=== PATIENT | male | born 1950 | race Caucasian/White ===

== ENCOUNTER → 2016-05-11 | Outpatient (CLI) | payer MEDICARE, OTHER ==
[~2016-05-11] MED LIST: /PANT40TA OR; /SUCR1TA OR; ASPI81TA83 OR; CARV3.12 PO; CRAN250T PO; FERR225T PO; FLOM5CAP PO; LISI20TA5 OR; MULTCAP PO; NATU400T PO; OCUVCAP2 PO; OMEG500C PO; OSTETAB4 PO; PANT40TA2 PO; PERCOCET PO; PRAV40TA OR; REDCAP3 PO; TRAN2TAB4 PO; VITA500C24 PO; XARE20TA PO; ZANT150T OR
[2016-05-11 20:16] LABS: BASO % 0.6 % (0.0-1.0); EOS # 0.2 K/mm3 (0.0-0.50); EOS % 2.9 % (0.0-3.0); LARGE UNSTAINED CELL # 0.1 K/mm3 (0.0-0.4); LARGE UNSTAINED CELL % 1.5 % (0.0-4.0); LYMPH # 1.6 K/mm3 (1.5-4.5); LYMPH % 25.4 % (24.0-44.0); MEAN CORPUSCULAR HEMOGLOBIN 31.4 pg (27.0-33.0); MEAN CORPUSCULAR HGB CONC 33.1 g/dl (32.0-36.5); MEAN CORPUSCULAR VOLUME 94.8 fl (80.0-96.0); MONO # 0.3 K/mm3 (0.0-0.8); MONO % 5.4 % (0.0-5.0); NEUTROPHILS % 64.2 % (36.0-66.0); PLATELET COUNT, AUTOMATED 277 k/mm3 (150-450); RED CELL DISTRIBUTION WIDTH 12.9 % (11.5-14.5); WHITE BLOOD COUNT 6.2 K/mm3 (4.0-10.0)
[2016-05-11 20:32] LABS: ANION GAP 7 MEQ/L (8-16); BLOOD UREA NITROGEN 18 MG/DL (7-18); CALCIUM LEVEL 8.9 MG/DL (8.8-10.2); CARBON DIOXIDE LEVEL 29 MEQ/L (21-32); CHLORIDE LEVEL 105 MEQ/L (98-107); CREATININE FOR GFR 0.86 MG/DL (0.70-1.30); GLOMERULAR FILTRATION RATE > 60.0 (>49); GLUCOSE, FASTING 106 MG/DL (80-110); SODIUM LEVEL 141 MEQ/L (136-145)
== END ==
LOC: M WUC 16:11
PROVIDERS: ATTEND Physician Assistant Medical
DX: N39.0 Urinary tract infection, site not specified (principal); N40.1 Benign prostatic hyperplasia with lower urinary tract symptoms
CPT/HCPCS: 36415; 80048; 81001; 81002; 84153; 85025; 87086; G0463

== ENCOUNTER → 2016-06-27 | Outpatient (REF) | payer MEDICARE, OTHER ==
[2016-06-27 11:05] LABS: BASO % 0.6 % (0.0-1.0); EOS # 0.2 K/mm3 (0.0-0.50); EOS % 2.7 % (0.0-3.0); LARGE UNSTAINED CELL # 0.1 K/mm3 (0.0-0.4); LARGE UNSTAINED CELL % 1.1 % (0.0-4.0); LYMPH # 1.4 K/mm3 (1.5-4.5); LYMPH % 22.1 % (24.0-44.0); MEAN CORPUSCULAR HEMOGLOBIN 31.9 pg (27.0-33.0); MEAN CORPUSCULAR HGB CONC 34.1 g/dl (32.0-36.5); MEAN CORPUSCULAR VOLUME 93.5 fl (80.0-96.0); MONO # 0.4 K/mm3 (0.0-0.8); MONO % 6.3 % (0.0-5.0); NEUTROPHILS # 3.9 K/mm3 (1.8-7.7); PLATELET COUNT, AUTOMATED 259 k/mm3 (150-450); RED CELL DISTRIBUTION WIDTH 12.8 % (11.5-14.5); WHITE BLOOD COUNT 5.8 K/mm3 (4.0-10.0)
[2016-06-27 11:21] LABS: ALBUMIN/GLOBULIN RATIO 1.38 (1.00-1.93); ALKALINE PHOSPHATASE 93 U/L (45-117); ALT/SGPT 27 U/L (12-78); ANION GAP 7 MEQ/L (8-16); AST/SGOT 20 U/L (15-37); BILIRUBIN,TOTAL 0.5 MG/DL (0.2-1.0); BLOOD UREA NITROGEN 11 MG/DL (7-18); CALCIUM LEVEL 9.4 MG/DL (8.8-10.2); CARBON DIOXIDE LEVEL 30 MEQ/L (21-32); CHLORIDE LEVEL 103 MEQ/L (98-107); CHOLESTEROL LEVEL 232 MG/DL (<200); CREATININE FOR GFR 0.87 MG/DL (0.70-1.30); GLOMERULAR FILTRATION RATE > 60.0 (>49); GLUCOSE, FASTING 108 MG/DL (80-110); POTASSIUM SERUM 4.4 MEQ/L (3.5-5.1); SODIUM LEVEL 140 MEQ/L (136-145); TOTAL PROTEIN 6.9 GM/DL (6.4-8.2); TRIGLYCERIDES LEVEL 232 MG/DL (<150)
== END ==
LOC: M LABDRAW1 10:43
PROVIDERS: ATTEND Family Medicine
DX: M17.0 Bilateral primary osteoarthritis of knee (principal); E78.5 Hyperlipidemia, unspecified; R73.01 Impaired fasting glucose; E55.9 Vitamin D deficiency, unspecified

== ENCOUNTER → 2016-10-11 | Outpatient (REF) | payer MEDICARE, OTHER ==
[~2016-10-11] MED LIST changes: -TRAN2TAB4 PO; +TRAN2TAB8 PO
[2016-10-11 11:59] LABS: ALBUMIN 4.1 GM/DL (3.2-5.2); ALBUMIN/GLOBULIN RATIO 1.37 (1.00-1.93); ALKALINE PHOSPHATASE 98 U/L (45-117); ALT/SGPT 30 U/L (12-78); ANION GAP 9 MEQ/L (8-16); AST/SGOT 17 U/L (15-37); BILIRUBIN,TOTAL 0.5 MG/DL (0.2-1.0); BLOOD UREA NITROGEN 13 MG/DL (7-18); CALCIUM LEVEL 9.1 MG/DL (8.8-10.2); CARBON DIOXIDE LEVEL 29 MEQ/L (21-32); CHLORIDE LEVEL 105 MEQ/L (98-107); CHOLESTEROL LEVEL 200 MG/DL (<200); CREATININE FOR GFR 0.84 MG/DL (0.70-1.30); GLOMERULAR FILTRATION RATE > 60.0 (>49); GLUCOSE, FASTING 96 MG/DL (80-110); POTASSIUM SERUM 4.1 MEQ/L (3.5-5.1); SODIUM LEVEL 143 MEQ/L (136-145); TOTAL PROTEIN 7.1 GM/DL (6.4-8.2); TRIGLYCERIDES LEVEL 153 MG/DL (<150)
== END ==
LOC: M LABDRAW1 11:00
PROVIDERS: ATTEND Family Medicine
DX: E78.5 Hyperlipidemia, unspecified (principal); Z79.899 Other long term (current) drug therapy

== ENCOUNTER → 2016-11-27 | Outpatient (CLI) | payer MEDICARE, BC, OTHER ==
--- NOTE | 2016-11-27 12:13 | REP ---
MRI RIGHT HIP: TECHNIQUE: Coronal T1, STIR through the pelvis, T2 fat sat, right hip all three planes, axial oblique proton density fat sat right hip. There is no evidence of significant marrow edema. There is no occult fracture. There is no evidence of avascular necrosis. Incidental note is made of a metallic prosthesis at the left hip. There do appear to be tears of the anterior and posterior right hip labrum as well as the superior labrum. No paralabral cyst is seen. There is mild chondromalacia with some mild subchondral marrow edema in the superior acetabulum. Surrounding soft tissue structures appear unremarkable. Visualized intrapelvic structures are unremarkable. IMPRESSION: There appear to be tears of the anterior, posterior, and superior labrum. 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 Mild subchondral marrow edema in the superolateral acetabulum. Signed by Bassam Gonzalez MD 11/27/2016 04:01 P
== END ==
LOC: M PLARAD 09:41
PROVIDERS: ATTEND Orthopaedic Surgery
DX: M94.251 Chondromalacia, right hip (principal); M25.451 Effusion, right hip

== ENCOUNTER → 2017-01-09 | Outpatient (REF) | payer MEDICARE, BC, OTHER ==
[~2017-01-09] MED LIST changes: +DIGO0.259 PO; +ELIQ5TAB; +GABA-283 PO; +MAGN250T6 PO; +PRAV40TA2 PO
== END ==
LOC: M SFHCPLAZ 12:38
PROVIDERS: ATTEND Physician Assistant Medical
DX: C44.329 Squamous cell carcinoma of skin of other parts of face (principal)
CPT/HCPCS: 11100; 88305; G0463

== ENCOUNTER → 2017-01-11 | Outpatient (CLI) | payer MEDICARE, BC, OTHER | LOC: M PT 08:25 | PROVIDERS: ATTEND Orthopaedic Surgery | DX: Z01.818 Encounter for other preprocedural examination (principal); M25.551 Pain in right hip | CPT/HCPCS: 97161; G8978; G8979; G8980 ==

== ENCOUNTER 2017-02-16 21:51 | Emergency (ER) | payer MEDICARE, BC, OTHER ==
[~2017-02-16] VITALS: Ht 177.8 cm; Wt 109.1 kg
[~2017-02-16 21:51] MED LIST changes: -DIGO0.259 PO; -ELIQ5TAB; -GABA-283 PO; -MAGN250T6 PO; -PRAV40TA2 PO
[2017-02-16] MEDS ORDERED: MAGN250T6 PO (22:04)
[2017-02-16] MEDS ORDERED: ELIQ5TAB (22:04)
[2017-02-16] MEDS ORDERED: GABA-283 PO (22:04)
[2017-02-16] MEDS ORDERED: PRAV40TA2 PO (22:04)
[2017-02-16] MEDS ORDERED: METOPROLOL 5 MG/5 ML VIAL IV STA ×3 (22:08→22:51)
[2017-02-16 22:23] LABS: BASO # 0.1 10^3/uL (0.0-0.2); BASO % 0.9 % (0.0-1.0); EOS # 0.4 10^3/uL (0.0-0.50); EOS % 3.9 % (0.0-3.0); IMMATURE GRANULOCYTE % 0.4 % (0-0); LYMPH % 21.6 % (24.0-44.0); MEAN CORPUSCULAR VOLUME 91.2 fl (80.0-96.0); MONO # 0.7 10^3/uL (0.0-0.8); MONO % 7.8 % (0.0-5.0); NEUTROPHILS # 5.9 10^3/uL (1.8-7.7); NEUTROPHILS % 65.4 % (36.0-66.0); PLATELET COUNT, AUTOMATED 298 10^3/uL (150-450); RED CELL DISTRIBUTION WIDTH 12.8 % (11.5-14.5); WHITE BLOOD COUNT 9.1 10^3/uL (4.0-10.0)
[2017-02-16 22:38] LABS: ANION GAP 9 MEQ/L (8-16); BLOOD UREA NITROGEN 17 MG/DL (7-18); CALCIUM LEVEL 9.2 MG/DL (8.8-10.2); CARBON DIOXIDE LEVEL 28 MEQ/L (21-32); CHLORIDE LEVEL 104 MEQ/L (98-107); CREATININE FOR GFR 0.89 MG/DL (0.70-1.30); GLOMERULAR FILTRATION RATE > 60.0 (>49); GLUCOSE, FASTING 162 MG/DL (80-110); POTASSIUM SERUM 3.7 MEQ/L (3.5-5.1); SODIUM LEVEL 141 MEQ/L (136-145); T UPTAKE 29 % (33-40); THYROXINE (T4) 7.7 UG/DL (4.5-12.0)
[2017-02-16 22:55] VITALS: BP 131/94
[2017-02-16] MEDS ORDERED: DIGOXIN INJ 0.5 MG/2 ML AMP (J1160) IV STA (23:25)
[2017-02-16 23:46] VITALS: BP 143/75
[2017-02-16] MEDS ORDERED: DIGO0.259 PO (23:56)
--- NOTE | 2017-02-17 07:24 | ECGEPIP ---
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
--- NOTE | 2017-02-17 07:26 | ECGEPIP ---
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
== END 2017-02-17 00:04 | disposition home or self-care (01) ==
LOC: M ED 21:51
DX: I48.91 Unspecified atrial fibrillation (principal); I10 Essential (primary) hypertension; K21.9 Gastro-esophageal reflux disease without esophagitis; N40.0 Benign prostatic hyperplasia without lower urinary tract symptoms; E78.5 Hyperlipidemia, unspecified; M54.5 Low back pain; Z87.442 Personal history of urinary calculi; K26.9 Duodenal ulcer, unspecified as acute or chronic, without hemorrhage or perforation; Z79.899 Other long term (current) drug therapy; Z79.01 Long term (current) use of anticoagulants; Z88.1 Allergy status to other antibiotic agents; Z88.8 Allergy status to other drugs, medicaments and biological substances
CPT/HCPCS: 80048; 82550; 82553; 84436; 84443; 84479; 84484; 85025; 93005; 96374; 96375; 96376; 99284; J1160

== ENCOUNTER → 2017-05-10 | Outpatient (REF) | payer MEDICARE, BC, OTHER | LOC: M LAB REF 18:22 | DX: L57.8 Other skin changes due to chronic exposure to nonionizing radiation (principal) | CPT/HCPCS: 88305 ==

== ENCOUNTER → 2017-05-17 | Outpatient (CLI) | payer MEDICARE, BC, OTHER | LOC: M SLEEP 19:52 | DX: G47.33 Obstructive sleep apnea (adult) (pediatric) (principal) | CPT/HCPCS: 95811 ==

== ENCOUNTER → 2017-07-06 | Outpatient (REF) | payer MEDICARE, BC, OTHER ==
[2017-07-06 11:27] LABS: PSA SCREENING 0.67 NG/ML (< 4.0)
== END ==
LOC: M LABDRAW1 07:44
DX: N40.1 Benign prostatic hyperplasia with lower urinary tract symptoms (principal)

== ENCOUNTER → 2017-07-06 | Outpatient (REF) | payer MEDICARE, BC, OTHER ==
[2017-07-06 10:47] LABS: APPEARANCE, URINE CLEAR (CLEAR); BACTERIA, URINE AUTO NEGATIVE (NEGATIVE); BILIRUBIN, URINE AUTO NEGATIVE (NEGATIVE); BLOOD, URINE BLOOD NEGATIVE (NEGATIVE); COLOR, URINE YELLOW (YELLOW); GLUCOSE, URINE (UA) AUTO NEGATIVE (NEGATIVE); KETONE, URINE AUTO NEGATIVE (NEGATIVE); LEUKOCYTE ESTERASE, URINE AUTO NEGATIVE (NEGATIVE); MUCUS, URINE SMALL (NEGATIVE); NITRITE, URINE AUTO NEGATIVE (NEGATIVE); PROTEIN, URINE AUTO NEGATIVE (NEGATIVE); RBC, URINE AUTO 0 /HPF (0-3); SPECIFIC GRAVITY URINE AUTO 1.024 (1.002-1.035); SQUAMOUS EPITHELIAL CELL UR AU 0 /HPF (0-6); UROBILINOGEN, URINE AUTO 0.2 mg/dL (0.0-2.0); WBC, URINE AUTO 0 /HPF (0-3)
[2017-07-06 10:59] LABS: ESTIMATED AVERAGE GLUCOSE 137 MG/DL (60-110); HEMOGLOBIN A1c 6.4 %
[2017-07-06 11:24] LABS: C REACTIVE PROTEIN QUANTITATIV < 0.30 MG/DL (0.00-0.30); CHOLESTEROL LEVEL 177 MG/DL (<200); CHOLESTEROL RISK RATIO 3.847 (<5); CPK CREATINE PHOSPHOKINASE 131 U/L (39-308); HDL CHOLESTEROL 46 MG/DL (>40); NON-HDL-C 131 MG/DL; PSA SCREENING 0.65 NG/ML (< 4.0); TRIGLYCERIDES LEVEL 225 MG/DL (<150)
[2017-07-06 11:35] LABS: MALB URINE SIEMENS 41.9 MG/L; MAU/CREAT RATIO 20.7 MCG/MG (0.0-30.0)
[2017-07-07 14:19] LABS: INSULIN LEVEL 24.1 uIU/mL (2.6-24.9)
== END ==
LOC: M LABDRAW1 07:41
DX: E78.5 Hyperlipidemia, unspecified (principal); R73.01 Impaired fasting glucose; N40.1 Benign prostatic hyperplasia with lower urinary tract symptoms
CPT/HCPCS: 82550

== ENCOUNTER → 2017-09-21 | Outpatient (CLI) | payer MEDICARE, BC, OTHER | LOC: M PLARAD 07:59 | DX: M25.572 Pain in left ankle and joints of left foot (principal) ==

== ENCOUNTER → 2017-09-21 | Outpatient (CLI) | payer MEDICARE, BC, OTHER | LOC: M PLARAD 08:05 | DX: M47.27 Other spondylosis with radiculopathy, lumbosacral region (principal); M46.1 Sacroiliitis, not elsewhere classified; M51.26 Other intervertebral disc displacement, lumbar region; M51.37 Other intervertebral disc degeneration, lumbosacral region; G57.00 Lesion of sciatic nerve, unspecified lower limb; M25.572 Pain in left ankle and joints of left foot | CPT/HCPCS: 72148 ==

== ENCOUNTER 2017-11-29 06:16 | Day surgery (SDC) | payer MEDICARE, BC, OTHER ==
[2017-11-29] MEDS: CEFUROXIME 1MG/0.1ML INTRACAMERAL INJ As Ordered (06:56)
[2017-11-29] MEDS: TROPICAMIDE 1% OPHTH SOLN 2ML OS (07:05)
[2017-11-29] MEDS: PROPARACAINE 0.5% OPHTH SOL 15ML OS (07:05)
[2017-11-29] MEDS: PHENYLEPHRINE 2.5% OPHTH SOL 2ML OS (07:05)
[2017-11-29] MEDS: OFLOXACIN 0.3 % (OCUFLOX) OPTH SOL 5ML OS (07:08)
[2017-11-29] MEDS ORDERED: fentaNYL 100 MCG/2 ML INJECTION (J3010) As Ordered (08:42)
[2017-11-29] MEDS ORDERED: MIDAZOLAM INJ 2 MG/2 ML VIAL (J2250) As Ordered (08:42)
[2017-11-29] MEDS: POVIDONE-IODINE 5% OPHTH PREP SOL 30ML As Ordered (08:43)
[2017-11-29] MEDS: DUOVISC (0.50ML VISCOAT/0.55ML PROVISC) OPHTH KIT As Ordered (09:06)
[2017-11-29] MEDS: BALANCED SALT IRRIGATION SOLUTION 500ML BAG (FOR OR EYE MACHINE) As Ordered (09:06)
[2017-11-29] MEDS: LIDOCAINE 0.75%/EPINEPHRINE 0.025% IN BSS 1ML SYR INTRACAMERAL (OR ONLY) As Ordered (09:06)
== END 2017-11-29 09:37 | disposition home or self-care (01) ==
LOC: M SDC 06:16
DX: H25.12 Age-related nuclear cataract, left eye (principal); E78.00 Pure hypercholesterolemia, unspecified; I48.91 Unspecified atrial fibrillation; I10 Essential (primary) hypertension; G47.30 Sleep apnea, unspecified; Z79.899 Other long term (current) drug therapy
CPT/HCPCS: 66984

== ENCOUNTER → 2017-12-18 | Outpatient (REF) | payer MEDICARE, OTHER ==
[2017-12-18 11:56] LABS: BASO # 0.1 10^3/uL (0.0-0.2); BASO % 0.9 % (0.0-1.0); EOS # 0.2 10^3/uL (0.0-0.50); EOS % 3.8 % (0.0-3.0); HEMATOCRIT 42.9 % (42.0-52.0); HEMOGLOBIN 14.4 g/dl (13.5-17.5); IMMATURE GRANULOCYTE % 0.5 % (0-3.0); LYMPH # 1.6 10^3/uL (1.5-4.5); LYMPH % 29.4 % (24.0-44.0); MEAN CORPUSCULAR HEMOGLOBIN 31.3 pg (27.0-33.0); MEAN CORPUSCULAR HGB CONC 33.6 g/dl (32.0-36.5); MEAN CORPUSCULAR VOLUME 93.3 fl (80.0-96.0); MONO # 0.5 10^3/uL (0.0-0.8); MONO % 8.2 % (0.0-5.0); NEUTROPHILS # 3.1 10^3/uL (1.8-7.7); NEUTROPHILS % 57.2 % (36.0-66.0); PLATELET COUNT, AUTOMATED 231 10^3/uL (150-450); RED CELL DISTRIBUTION WIDTH 13.2 % (11.5-14.5); RETIC HEMOGLOBIN EQUIVALENT 36.4 pg (24-36); RETICULOCYTE # 58.9 10^9/L (17-77); RETICULOCYTE % 1.3 % (0.5-1.5); WHITE BLOOD COUNT 5.5 10^3/uL (4.0-10.0)
[2017-12-18 12:39] LABS: ALBUMIN 4.1 GM/DL (3.2-5.2); ALKALINE PHOSPHATASE 72 U/L (45-117); ALT/SGPT 25 U/L (12-78); ANION GAP 7 MEQ/L (8-16); AST/SGOT 15 U/L (7-37); BILIRUBIN,TOTAL 0.5 MG/DL (0.2-1.0); BLOOD UREA NITROGEN 14 MG/DL (7-18); CALCIUM LEVEL 8.9 MG/DL (8.8-10.2); CARBON DIOXIDE LEVEL 29 MEQ/L (21-32); CHLORIDE LEVEL 106 MEQ/L (98-107); CREATININE FOR GFR 0.75 MG/DL (0.70-1.30); FERRITIN 198 NG/ML (26-388); GLOMERULAR FILTRATION RATE > 60.0 (>49); GLUCOSE, FASTING 104 MG/DL (70-100); MAGNESIUM LEVEL 2.2 MG/DL (1.8-2.4); SODIUM LEVEL 142 MEQ/L (136-145); TOTAL PROTEIN 6.6 GM/DL (6.4-8.2)
[2017-12-18 16:15] LABS: ALBUMIN/GLOBULIN RATIO 1.64 (1.00-1.93)
[2017-12-19 14:18] LABS: INSULIN LEVEL 19.5 uIU/mL (2.6-24.9)
== END ==
LOC: M LABDRAW1 10:59
DX: I10 Essential (primary) hypertension (principal); R73.01 Impaired fasting glucose; Z87.19 Personal history of other diseases of the digestive system
CPT/HCPCS: 83525

== ENCOUNTER 2018-02-07 08:29 | Day surgery (SDC) | payer MEDICARE, BC, OTHER ==
[2018-02-07] MEDS: PHENYLEPHRINE 2.5% OPHTH SOL 2ML OD (09:04)
[2018-02-07] MEDS: TROPICAMIDE 1% OPHTH SOLN 2ML OD (09:04)
[2018-02-07] MEDS: OFLOXACIN 0.3 % (OCUFLOX) OPTH SOL 5ML OD (09:04)
[2018-02-07] MEDS: PROPARACAINE 0.5% OPHTH SOL 15ML OD (09:04)
[2018-02-07] MEDS ORDERED: fentaNYL 100 MCG/2 ML INJECTION (J3010) As Ordered (09:46)
[2018-02-07] MEDS ORDERED: MIDAZOLAM INJ 2 MG/2 ML VIAL (J2250) As Ordered (09:46)
[2018-02-07] MEDS: POVIDONE-IODINE 5% OPHTH PREP SOL 30ML As Ordered (10:20)
[2018-02-07] MEDS: DUOVISC (0.50ML VISCOAT/0.55ML PROVISC) OPHTH KIT As Ordered (10:26)
[2018-02-07] MEDS: BALANCED SALT IRRIGATION SOLUTION 500ML BAG (FOR OR EYE MACHINE) As Ordered (10:26)
[2018-02-07] MEDS: CEFUROXIME 1MG/0.1ML INTRACAMERAL INJ As Ordered (10:26)
[2018-02-07] MEDS: LIDOCAINE 0.75%/EPINEPHRINE 0.025% IN BSS 1ML SYR INTRACAMERAL (OR ONLY) As Ordered (10:26)
== END 2018-02-07 11:14 | disposition home or self-care (01) ==
LOC: M SDC 08:29
DX: H25.11 Age-related nuclear cataract, right eye (principal); H52.211 Irregular astigmatism, right eye; I10 Essential (primary) hypertension; I48.91 Unspecified atrial fibrillation; E11.9 Type 2 diabetes mellitus without complications; E78.00 Pure hypercholesterolemia, unspecified; I34.9 Nonrheumatic mitral valve disorder, unspecified; M12.9 Arthropathy, unspecified; K21.9 Gastro-esophageal reflux disease without esophagitis; M48.00 Spinal stenosis, site unspecified; G47.33 Obstructive sleep apnea (adult) (pediatric); Z88.1 Allergy status to other antibiotic agents; Z88.8 Allergy status to other drugs, medicaments and biological substances; Z79.899 Other long term (current) drug therapy; Z79.01 Long term (current) use of anticoagulants; Z79.84 Long term (current) use of oral hypoglycemic drugs; Z86.73 Personal history of transient ischemic attack (TIA), and cerebral infarction without residual deficits; Z87.442 Personal history of urinary calculi; Z98.42 Cataract extraction status, left eye
CPT/HCPCS: 66984

== ENCOUNTER → 2018-02-14 | Outpatient (CLI) | payer MEDICARE, OTHER | LOC: M PAIN 09:00 | DX: M54.17 Radiculopathy, lumbosacral region (principal); M47.817 Spondylosis without myelopathy or radiculopathy, lumbosacral region; R73.01 Impaired fasting glucose; E78.5 Hyperlipidemia, unspecified; I10 Essential (primary) hypertension; E66.9 Obesity, unspecified; I48.0 Paroxysmal atrial fibrillation; G47.33 Obstructive sleep apnea (adult) (pediatric); G47.00 Insomnia, unspecified; Z85.828 Personal history of other malignant neoplasm of skin; Z87.442 Personal history of urinary calculi; Z68.36 Body mass index [BMI] 36.0-36.9, adult; Z79.01 Long term (current) use of anticoagulants; Z79.84 Long term (current) use of oral hypoglycemic drugs; Z79.899 Other long term (current) drug therapy; Z96.643 Presence of artificial hip joint, bilateral; Z98.41 Cataract extraction status, right eye; Z88.1 Allergy status to other antibiotic agents; Z88.8 Allergy status to other drugs, medicaments and biological substances | CPT/HCPCS: G0463 ==

== ENCOUNTER → 2018-03-27 | Outpatient (CLI) | payer MEDICARE, OTHER ==
[~2018-03-27] MED LIST changes: +BISO5TAB5 PO; +CURCPOW PO; +DIGO0.259 PO; +ELIQ5TAB PO; +FERR325T16 PO; +FLOM0.4C39 PO; -FLOM5CAP PO; +GABA-845 PO; +ISOVUE-M 300 61% 15ML VIAL (Q9967) As Ordered ONE; +LIDOCAINE 1% SDV INJ 30 ML VIAL As Ordered ONE; +MAGN250T6 PO; +MELA10CA PO; +METF500T4 PO; +NEUR600T PO; +OCUVTAB4 PO; -PANT40TA2 PO; +PANT40TA3 PO; +PRAV20TA2 PO; +PRAV40TA2 PO; +SONA10CA23 PO; +TRAN1TAB47 PO; +TRAN1TAB48 PO; -TRAN2TAB8 PO; +ZALE10CA; +[UNRECOGNIZED DRUG - CODE] PO; +diazePAM 5 MG TAB As Ordered ONE; +methylPREDNISolone SUSP 40 MG/ML (DEPO-medrol) VIAL (J1030) As Ordered ONE; +oxyCODONE 5MG TAB As Ordered ONE
--- NOTE | 2018-03-27 14:58 | REP ---
Partial lumbar spine series: Three views . History: Injection procedure for pain. 13 seconds of fluoroscopy time is reported. Findings: A sequence of three fluoroscopically obtained last image hold procedural spot radiographs of the lumbar spine document needle position and contrast injection associated with injection procedure. Electronically Signed by Richard Bradley MD 03/27/2018 02:50 P
--- NOTE | 2018-04-14 23:50 | ECWPNPC ---
PATIENT NAME: TRAVIS CARDENAS : 1950 GENDER: MALE VISIT DATE: 03/27/2018 DISCHARGE DATE: 03/27/18 1338 VISIT LOCKED DATE TIME: PHYSICIAN: BRITTNEY AGUILERA MD PHYSICIAN PAGER NO: [phone] RESOURCE: BRITTNEY AGUILERA MD REASON FOR APPOINTMENT 1. LESI HISTORY OF PRESENT ILLNESS HISTORY OF PRESENT ILLNESS: PAIN THE PATIENT DESCRIBES THE PAIN... FALL RISK SCREENING: SCREENING :NO FALLS IN THE PAST YEAR CURRENT MEDICATIONS TAKING VITAMIN D (CHOLECALCIFEROL) 1000 UNIT TABLET 2 TABLET ORALLY ONCE A DAY, NOTES: 07 TAKING PROTOPIC 0.1 % OINTMENT 1 APPLICATION TO AFFECTED AREA EXTERNALLY BID X 7 DAYS TO ECZEMA PLAQUES, NOTES: MONTHS AGO TAKING FLOMAX 0.4 MG CAPSULE 2 CAPSULES 30 MINUTES AFTER THE SAME MEAL EACH DAY ORALLY QHS, NOTES: 03/26/182244 TAKING MAGNESIUM 200 MG TABLET 1 TABLET WITH A MEAL ORALLY TWICE A DAY, NOTES: 729 TAKING MELATONIN 10 MG TABLET 1 TABLET AT BEDTIME NEEDED WITH FOOD ORALLY ONCE A DAY, NOTES: 03/26/182229 TAKING VOLTAREN 1 % GEL ONE APPLICATION TRANSDERMAL TWICE A DAY TO BACK AND HAMSTRINGS., NOTES: NONE RECENT TAKING GABAPENTIN 600 MG TABLET 1 CAPSULE ORALLY THREE TIMES A DAY, NOTES: 729 TAKING PRAVASTATIN SODIUM 20 MG TABLET 1 TABLET ORALLY AT BEDTIME, NOTES: 03/26/182244 TAKING PANTOPRAZOLE SODIUM 40 MG TABLET DELAYED RELEASE 1 TABLET ORALLY EVERY MORNING, NOTES: 729 TAKING APIXABAN 5 MG TABLET 1 TAB ORALLY BID, NOTES: 03/24/18 0700 TAKING MULTIVITAMINS OTC TABLET 1 TABLET ORALLY ONCE A DAY, NOTES: 729 TAKING AREDS _ CAPSULE 1 CAPLSULE ORALLY TWICE A DAY, NOTES: 729 TAKING CURCUMIN TABLET 2 CAP ORAL DAILY, NOTES: 729 TAKING BISOPROLOL FUMARATE 5 MG TABLET 1 TABLET ORALLY ONCE A DAY, NOTES: 729 TAKING AMOXICILLIN 500 MG CAPSULE 4 CAPSULE ORALLY DIRECTED, NOTES: NONE RECENT - BEFORE DENTIST APPOINTMENTS TAKING SONATA 10 MG CAPSULE 1 CAPSULE AT BEDTIME NEEDED ORALLY AT BEDTIME PRN INSOMNIA, NOTES: 03/26/182244 TAKING METFORMIN HCL ER 500 MG TABLET EXTENDED RELEASE 24 HOUR 1 TABLET WITH EVENING MEAL ORALLY AC DINNER, NOTES: 03/26/18 1900 TAKING TRANDOLAPRIL 1 MG TABLET 1 TABLET ORALLY AT BEDTIME, NOTES: 03/26/18 2245 NOT-TAKING GABAPENTIN 600 MG TABLET 1 CAPSULE ORALLY THREE TIMES A DAY, NOTES: DUPLICATE NOT-TAKING METFORMIN HCL ER 500 MG TABLET EXTENDED RELEASE 24 HOUR 1 TABLET WITH EVENING MEAL ORALLY AC DINNER, NOTES: DUPLICATE NOT-TAKING TAMSULOSIN HCL 0.4 MG CAPSULE 2 CAPSULES ORALLY AT BEDTIME, NOTES: DUPLICATE MEDICATION LIST REVIEWED AND RECONCILED WITH THE PATIENT PAST MEDICAL HISTORY IMPAIRED FASTING GLUCOSE HYPERLIPIDEMIA 2B HYPERTENSION HISTORY OF LEFT NEPHROLITHIASIS X1 STATUS POST LASER LITHOTRIPSY BY DR. FULTON OF 2009-10/2010 24 URINE ONLY WITH MILDY ELEVATED OXALATE OBESITY LELO. 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 WANDA'S ATRIAL FLUTTER-S/P R ATRIAL ABLATION 10/2012-DR. PEREZ// PATRICK BLUM MD R UPPER BACK BCC-EXCISED 10/2015-[facility]AN FACIAL AKS MILD DILATED AORTIC ROOT, NORMAL MVR S MS/MR BY 04/2016 TTE ANTECOL ATRIAL FIBRILLATION, PAROXYSMAL-S/P CARDIOVESION 04/02/16 [facility] AND 02/16/17 LOADED C DIGOXIN IV/PO R ORTHODOX 4 MM SCC IN-SITU EXCISED 05/2017-[facility]AN ALLERGIES LEVAQUIN: TENDONS TIGHTEN: ALLERGY MOBIC: HIVES: ALLERGY CEPHALOSPORINS: SEVERE: ALLERGY CLINDAMYCIN HCL: PERFORATED INTESTINES: ALLERGY FLAGYL: ? DUODENAL ULCER: SIDE EFFECTS CECLOR: HIVES: SIDE EFFECTS SURGICAL HISTORY COLONOSCOPY-NORMAL APRIL 2003 L THR-FISH 01/23/2014 UMBILICAL HERNIA REPAIR-[facility] DR. PURCELL 04/28/15 RTH-DR. AHMADI-MENDOZA ORTHO 03/12/17 HEART LOOP [id number]. ED PEREZ 06/12/17 LEFT CATARACT -[facility] -[facility] 11/29/17 APPENDECTOMY 05/1958 LASER EYE SURGERY 03/1994 LEFT WRIST SURGERY 02/2004 LEFT KIDNEY LITHTRIPSY 12/2009 NEGRITO 04/2012 EGD X3 05/2011 MITRAL VALAVE REPAIR AND CYRO ABLATION 06/2012 RIGHT HIP REPLACEMET 03/2017 RIGHT CATARACT 02/2018 FAMILY HISTORY FATHER: , DIAGNOSED WITH HEART DISEASE MOTHER: , DIAGNOSED WITH STROKE, OTHER SIBLINGS: ALIVE 1 BROTHER(S) - HEALTHY. 1 SON(S) - HEALTHY. MOTHER - DEMENTIA, COPDFATHER AND BROTHER-OLDER- DX ESSENTIAL TREMORS. SOCIAL HISTORY GENERAL: TOBACCO USE ARE YOU A:NONSMOKER ARE YOU A:FORMER SMOKER HOW LONG HAS IT BEEN SINCE YOU LAST SMOKED?> 10 YEARS BMI CARE GOAL FOLLOW-UP ABOVE NORMAL BMI FOLLOW-UPGIVING ENCOURAGEMENT TO EXERCISE ALCOHOL SCREENING DID YOU HAVE A DRINK CONTAINING ALCOHOL IN THE PAST YEAR?YES HOW OFTEN DID YOU HAVE SIX OR MORE DRINKS ON ONE OCCASION IN THE PAST YEAR?NEVER (0 POINTS) HOW MANY DRINKS DID YOU HAVE ON A TYPICAL DAY WHEN YOU WERE DRINKING IN THE PAST YEAR?3 OR 4 (1 POINT) HOW OFTEN DID YOU HAVE A DRINK CONTAINING ALCOHOL IN THE PAST YEAR?TWO TO THREE TIMES PER WEEK (3 POINTS) POINTS4 INTERPRETATIONPOSITIVE RECREATIONAL DRUG USE DRUG USE?NO CAFFEINE 2-5/DAY. SEXUAL HX HAD SEX IN THE LAST 12 MONTHS (VAGINAL, ORAL, OR ANAL)?YES WITHWOMEN ONLY USE PROTECTION?NO HAVE YOU EVER HAD AN STD?NO HIV / HEP-C SCREENING HIV TEST OFFERED TO PATIENT:YES DATE OFFERED:06/20/2016 TEST ACCEPTED:NO HEP-C TEST OFFERED TO PATIENT:YES DATE OFFERED:06/20/2016 REASON:PATIENT DECLINED TEST ACCEPTED:NO REASON:PATIENT DECLINED SCIENTOLOGY SCIENTOLOGY NO MORMONISM BELIEFS THAT WOULD IMPACT HEALTH CARE. LANGUAGE LANGUAGES SPOKEN:MALAY LEARNING BARRIERS / SPECIAL NEEDS CHANGE FROM LAST VISIT?NO BARRIERS TO LEARNING?NO HEARING IMPAIRED?NO VISION IMPAIRED?NO COGNITIVELY IMPAIRED?NO READINESS TO LEARN?YES LEARNING PREFERENCES?NO LEARNING CAPABILITIES PRESENT?YES EMOTIONAL BARRIERS?NO DOMESTIC VIOLENCE DO YOU FEEL SAFE IN YOUR ENVIRONMENT?YES OCCUPATION: RETIRED. DIET: REGULAR. EXERCISE: NO REGULAR EXERCISE. MARITAL STATUS: . PAIN CLINIC PFS, CLERGY, PUBLIC HEALTH REFERRALS HAS THE PATIENT BEEN EDUCATED REGARDING HIS/HER PLAN OF CARE?YES HAS THE PATIENT BEEN EDUCATED REGARDING PAIN, THE RISK FOR PAIN, THE IMPORTANCE OF EFFECTIVE PAIN MANAGEMENT, AND THE PAIN ASSESSMENT PROCESS?YES ADVANCE DIRECTIVE ADVANCE DIRECTIVE DISCUSSED WITH PATIENT:YES HCP - ERICK CARDENAS () REVIEWED WITH PATIENT 02/14/18 0938REVIEWED WITH PATIENT 03/27 18 1202 JS. HOSPITALIZATION/MAJOR DIAGNOSTIC PROCEDURE RESEARCH-RELATED 01/2018 SURGERY RELATED REVIEW OF SYSTEMS REVIEWED BY: PROVIDER: . CONSTITUTIONAL: ANY CHANGE IN YOUR MEDICAL CONDITION? NO . CHILLS NO . FEVER NO . INFECTION: DO YOU HAVE NEW INFECTIONS? NO . DO YOU HAVE HISTORY OF MRSA? NO . MUSCULOSKELETAL: ANY NEW PATTERNS OF PAIN OR NUMBNESS? NO . GASTROENTEROLOGY: ANY NEW CHANGE IN BOWEL CONTROL? NO . GENITOURINARY: ANY NEW CHANGE IN BLADDER CONTROL? NO . IS THERE A CHANCE YOU COULD BE ? NO . HEMATOLOGY/LYMPH: DO YOU TAKE ANY BLOOD THINNERS? (FOR EXAMPLE- COUMADIN, PLAVIX, AGGRENOX, PLATEL, PRADAXA, OR XARELTO) YES, ELIQUIS . WHEN WAS YOUR LAST DOSE? DATE: 03/24/18 TIME: 0700 . NEUROLOGY: HAVE YOU FALLEN IN THE PAST 6 MONTHS? NO . ANY NEW EXTREMITY NUMBNESS OR WEAKNESS? NO . CARDIOLOGY: DO YOU HAVE A PACEMAKER OR DEFIBRILLATOR? NO . RESPIRATORY: HAVE YOU BEEN SICK IN THE PAST WEEK? NO . FEVER NO . FLU LIKE SYMPTOMS? NO . COUGH NO . INTEGUMENTARY: DO YOU HAVE ANY RASHES OR OPEN SORES? NO . ALLERGIC/IMMUNO: ARE YOU ALLERGIC TO SHELLFISH OR IV DYE? NO . ANY NEW ALLERGIES? NO . PSYCHIATRIC: DO YOU HAVE THOUGHTS OF HURTING YOURSELF OR SOMEONE ELSE? NO . ARE YOU ABUSED, NEGLECTED, OR IN AN UNSAFE ENVIRONMENT? NO . ENDOCRINOLOGY: ARE YOU DIABETIC? NO . OTHER: DO YOU NEED ANY PRESCRIPTIONS? NO . IF YES, PLEASE LIST: ____ . ANY NEW PROBLEMS WITH YOUR MEDICATIONS? NO . WHEN DID YOU LAST EAT? ____03/26/18 1900 . WHEN DID YOU LAST DRINK? ____03/27/18 0730 . WHAT DID YOU LAST DRINK? ____WATER . NAME OF PERSON DRIVING YOU HOME? ____ARNALDO CARDENAS . DO YOU HAVE ANY OTHER QUESTIONS OR CONCERNS NO . VITAL SIGNS WT 249.8 LBS, HT 70 IN, BMI 35.84 INDEX, BP 124/77 MM HG, HR 57 /MIN, RR 18 /MIN, TEMP 97.1 F, OXYGEN SAT % 98%, SAFE IN ENV? (Y/N) YES, NA INITIALS AW 1129, REVIEWED BY: JS. ASSESSMENTS INTERVERTEBRAL DISC DISORDER WITH RADICULOPATHY OF LUMBAR REGION - M51.16 (PRIMARY) PROCEDURES PRE PROCEDURE DIAGNOSIS LUMBAR DISC DISORDER WITH RADICULOPATHY POST PROCEDURE DIAGNOSIS LUMBAR DISC DISORDER WITH RADICULOPATHY PROCEDURE LUMBAR EPIDURAL STEROID INJECTION UNDER FLUOROSCOPIC GUIDANCE SURGEON DR. BRITTNEY AGUILERA COMIC BOOK ARTIST NONE ANESTHESIA LOCAL PRE PROCEDURE NOTE THE PATIENT HAS A HISTORY OF CHRONIC LOW BACK PAIN. I EVALUATE THE PATIENT AND REVIEWED THE CHART. I WENT OVER THE RISKS, ALTERNATIVES, AND BENEFITS ASSOCIATED WITH THIS PROCEDURE. THE PATIENT WOULD LIKE TO PROCEED AND GIVE CONSENT TO PERFORMED THE PROCEDURE. THE PATIENT DENIES UNEXPLAINABLE WEIGHT LOSS, FEVER, CHILLS, OR NEW CHANGES IN URINARY OR BOWEL CONTROL. DESCRIPTION OF PROCEDURE THE PATIENT WAS BROUGHT TO THE PROCEDURE ROOM AND PLACED IN THE PRONE POSITION. THE LUMBOSACRAL AREA WAS CLEANED WITH BETADINE SOLUTION AND DRAPED ASEPTICALLY. THE PROCEDURE WAS DONE UNDER STERILE CONDITIONS. I CHECKED LATERALITY AND THE LEVEL WHERE THE PROCEDURE WAS GOING TO BE PERFORMED WITH THE PATIENT AND THE SUPPORTING STAFF AT THE MOMENT OF THE TIME OUT IN THE PROCEDURE ROOM. UNDER FLUOROSCOPIC GUIDANCE, THE TARGET POINT WAS SELECTED AT THE INTERLAMINAR LEVEL OF L4-L5. LIDOCAINE WAS USED TO NUMB THE SKIN AND THE SUBCUTANEOUS TISSUE BELOW IT. EPIDURAL TUOHY NEEDLE, 17-GAUGE, WAS ADVANCED UNDER FLUOROSCOPIC GUIDANCE AND FOLLOWING PATIENT FEEDBACK UNTIL THE EPIDURAL SPACE WAS REACHED, 7 CM DEEP INTO THE SKIN BY THE LOSS OF RESISTANCE TECHNIQUE. ISOVUE M DYE 30%, 0.25 ML, WAS INJECTED SHOWING ADEQUATE SPREAD OF THE DYE. THEN, A SOLUTION OF 3 ML OF NORMAL SALINE WITH DEPO-MEDROL 60 MG WAS INJECTED SLOWLY FOLLOWING PATIENT FEEDBACK. THERE WAS NO EVIDENCE OF BLOOD, PARESTHESIA OR CEREBROSPINAL FLUID DURING THE PROCEDURE. THE PATIENT WAS SENT TO THE RECOVERY ROOM. THE PATIENT WAS MOVING THE EXTREMITIES AND DOING WELL. THERE WAS NO COMPLICATION DURING THE PROCEDURE. FLUOROSCOPY TIME WAS 23 SECONDS. POST PROCEDURE NOTE THE PATIENT WILL BE SEEN IN A FOLLOW UP IN THE NEXT FEW WEEKS. INSTRUCTIONS WERE GIVEN, QUESTIONS WERE ANSWERED, AND THE PATIENT EXPRESSED UNDERSTANDING AND AGREES WITH THE PLAN. I, YSABEL PACHECO, DOCUMENTED THE ABOVE INFORMATION ACTING A SCRIBE FOR DR. AGUILERA. I HAVE REVIEWED THE ABOVE DOCUMENT, WRITTEN BY YSABEL MILLSIBMohan AND I VERIFY THAT IT IS ACCURATE. DIAGNOSTIC IMAGING [facility] FLUORO GUIDE SPINE INJECTION (PAIN)[id number] PROCEDURE CODES 6045F RADXPS IN END [id number] PXD [id number] LUMBAR/SACRAL W/ IMAGING DISPOSITION & COMMUNICATION FOLLOW UP 2 WEEKS ELECTRONICALLY SIGNED BY BRITTNEY AGUILERA MD, MD ON 04/14/2018 AT 02:21 PM EST DISCLAIMER : THIS IS A VISIT SUMMARY EXTRACTED FROM THE [employer] CHART. IT IS NOT A COPY OF THE [employer] PROGRESS NOTE. MTDD
== END ==
LOC: M PAIN 11:30
PROVIDERS: ATTEND Anesthesiology
DX: M51.16 Intervertebral disc disorders with radiculopathy, lumbar region (principal); R73.01 Impaired fasting glucose; E78.5 Hyperlipidemia, unspecified; I10 Essential (primary) hypertension; E66.9 Obesity, unspecified; I48.0 Paroxysmal atrial fibrillation; G47.33 Obstructive sleep apnea (adult) (pediatric); M47.896 Other spondylosis, lumbar region; G47.00 Insomnia, unspecified; M47.892 Other spondylosis, cervical region; Z85.828 Personal history of other malignant neoplasm of skin; Z87.442 Personal history of urinary calculi; Z96.643 Presence of artificial hip joint, bilateral; Z98.42 Cataract extraction status, left eye; Z88.1 Allergy status to other antibiotic agents; Z88.6 Allergy status to analgesic agent; Z79.01 Long term (current) use of anticoagulants
CPT/HCPCS: 62323; J1030; Q9967

== ENCOUNTER 2018-04-01 23:24 | Emergency (ER) | payer MEDICARE, OTHER ==
[~2018-04-01] VITALS: Ht 175.3 cm; Wt 110.0 kg
[~2018-04-01 23:24] MED LIST changes: -ISOVUE-M 300 61% 15ML VIAL (Q9967) As Ordered ONE; -LIDOCAINE 1% SDV INJ 30 ML VIAL As Ordered ONE; -ZALE10CA; -diazePAM 5 MG TAB As Ordered ONE; -methylPREDNISolone SUSP 40 MG/ML (DEPO-medrol) VIAL (J1030) As Ordered ONE; -oxyCODONE 5MG TAB As Ordered ONE
[2018-04-01 23:25] VITALS: BP 133/85
[2018-04-02] MEDS ORDERED: ZALE10CA
--- NOTE | 2018-04-02 06:34 | REP ---
Clinical: Trauma. Technique: AP, lateral, bilateral oblique views left wrist . Findings: The carpal bones, surrounding osseous structures, soft tissues, and joint spaces are normal for age. There is no evidence for acute fracture or dislocation. No subcutaneous emphysema or radiodense foreign body. Impression: No acute fracture or dislocation Electronically Signed by Pilo Verde MD 04/02/2018 06:25 A
== END 2018-04-02 00:32 | disposition home or self-care (01) ==
LOC: M ED 23:24
DX: S63.502A Unspecified sprain of left wrist, initial encounter (principal); W19.XXXA Unspecified fall, initial encounter; Y92.009 Unspecified place in unspecified non-institutional (private) residence as the place of occurrence of the external cause

== ENCOUNTER → 2018-05-10 | Outpatient (REF) | payer MEDICARE, BC, OTHER ==
[~2018-05-10] MED LIST changes: +ASPI81TAEC PO; +ZALE10CA PO
[2018-05-10 12:06] LABS: BASO # 0.1 10^3/uL (0.0-0.2); BASO % 0.8 % (0.0-1.0); EOS # 0.2 10^3/uL (0.0-0.50); EOS % 2.4 % (0.0-3.0); HEMATOCRIT 43.9 % (42.0-52.0); HEMOGLOBIN 14.9 g/dl (13.5-17.5); LYMPH # 1.5 10^3/uL (1.5-4.5); LYMPH % 23.5 % (24.0-44.0); MEAN CORPUSCULAR HEMOGLOBIN 31.1 pg (27.0-33.0); MEAN CORPUSCULAR HGB CONC 33.9 g/dl (32.0-36.5); MEAN CORPUSCULAR VOLUME 91.6 fl (80.0-96.0); MONO # 0.4 10^3/uL (0.0-0.8); MONO % 6.3 % (0.0-5.0); NEUTROPHILS # 4.1 10^3/uL (1.8-7.7); NEUTROPHILS % 66.5 % (36.0-66.0); PLATELET COUNT, AUTOMATED 262 10^3/uL (150-450); RED BLOOD COUNT 4.79 10^6/uL (4.30-6.10); WHITE BLOOD COUNT 6.2 10^3/uL (4.0-10.0)
[2018-05-10 12:12] LABS: ALT/SGPT 27 U/L (12-78); BILIRUBIN,TOTAL 0.6 MG/DL (0.2-1.0); BLOOD UREA NITROGEN 18 MG/DL (7-18); C REACTIVE PROTEIN QUANTITATIV < 0.30 MG/DL (0.00-0.30); CALCIUM LEVEL 8.8 MG/DL (8.8-10.2); CARBON DIOXIDE LEVEL 24 MEQ/L (21-32); CHLORIDE LEVEL 107 MEQ/L (98-107); CHOLESTEROL LEVEL 186 MG/DL (<200); CHOLESTEROL RISK RATIO 3.957 (<5); CPK CREATINE PHOSPHOKINASE 113 U/L (39-308); CREATININE FOR GFR 0.87 MG/DL (0.70-1.30); GLOMERULAR FILTRATION RATE > 60.0 (>49); GLUCOSE, FASTING 116 MG/DL (70-100); HDL CHOLESTEROL 47 MG/DL (>40); LDL CHOLESTEROL 91 MG/DL (<100); NON-HDL-C 139 MG/DL; POTASSIUM SERUM 4.3 MEQ/L (3.5-5.1); SODIUM LEVEL 141 MEQ/L (136-145); TOTAL PROTEIN 6.8 GM/DL (6.4-8.2); TRIGLYCERIDES LEVEL 242 MG/DL (<150)
[2018-05-10 12:20] LABS: PTH INTACT 59.2 PG/ML (18.5-88.0)
[2018-05-10 12:43] LABS: HEMOGLOBIN A1c 6.3 %
== END ==
LOC: M LABDRAW1 11:36
PROVIDERS: ATTEND Family Medicine
DX: I48.0 Paroxysmal atrial fibrillation (principal); E78.5 Hyperlipidemia, unspecified; R73.01 Impaired fasting glucose; E55.9 Vitamin D deficiency, unspecified

== ENCOUNTER 2018-05-12 10:44 | Observation (INO) | payer MEDICARE, BC, OTHER ==
[~2018-05-12] VITALS: Ht 177.8 cm; Wt 110.1 kg
[~2018-05-12 10:44] MED LIST changes: -ASPI81TAEC PO
--- NOTE | 2018-05-12 11:18 | REP ---
Clinical: Visual disturbances Comparison: None . Findings: Age-related atrophy and microvascular ischemic changes are appreciated. A subtle old lacunar infarct in the left basal ganglia is suggested. The ventricles, sulci, and cisterns are normal in position and appearance. Gonzalez-white differentiation is maintained. No acute intracranial hemorrhage, mass/mass effect, pathology or trauma/injury. No evidence for acute infarction. No extra-axial fluid collection. Calvarium is intact. Partial opacification of the paranasal sinuses noted. Impression: Age-related atrophy and microvascular ischemic changes. No evidence for acute intracranial pathology or trauma/injury. Mild sinus disease. Electronically Signed by Pilo Verde MD 05/12/2018 11:10 A
[2018-05-12 11:25] LABS: BASO % 0.7 % (0.0-1.0); EOS # 0.2 10^3/uL (0.0-0.50); EOS % 3.9 % (0.0-3.0); HEMATOCRIT 43.4 % (42.0-52.0); HEMOGLOBIN 14.9 g/dl (13.5-17.5); LYMPH # 1.5 10^3/uL (1.5-4.5); LYMPH % 25.9 % (24.0-44.0); MEAN CORPUSCULAR HEMOGLOBIN 31.3 pg (27.0-33.0); MEAN CORPUSCULAR HGB CONC 34.3 g/dl (32.0-36.5); MEAN CORPUSCULAR VOLUME 91.2 fl (80.0-96.0); MONO # 0.4 10^3/uL (0.0-0.8); MONO % 6.7 % (0.0-5.0); NEUTROPHILS # 3.7 10^3/uL (1.8-7.7); NEUTROPHILS % 62.5 % (36.0-66.0); PLATELET COUNT, AUTOMATED 227 10^3/uL (150-450); RED BLOOD COUNT 4.76 10^6/uL (4.30-6.10); WHITE BLOOD COUNT 5.8 10^3/uL (4.0-10.0)
[2018-05-12 11:37] LABS: INR 1.01; PROTHROMBIN TIME 13.4 SECONDS (12.1-14.4)
[2018-05-12] MEDS ORDERED: ALPRAZolam 0.5 MG TAB PO ONE (11:45)
[2018-05-12 12:03] LABS: ALBUMIN 3.9 GM/DL (3.2-5.2); ALT/SGPT 26 U/L (12-78); BILIRUBIN,TOTAL 0.6 MG/DL (0.2-1.0); BLOOD UREA NITROGEN 15 MG/DL (7-18); CALCIUM LEVEL 8.8 MG/DL (8.8-10.2); CARBON DIOXIDE LEVEL 27 MEQ/L (21-32); CHLORIDE LEVEL 105 MEQ/L (98-107); CREATININE FOR GFR 0.87 MG/DL (0.70-1.30); GLOMERULAR FILTRATION RATE > 60.0 (>49); GLUCOSE, FASTING 171 MG/DL (70-100); POTASSIUM SERUM 4.4 MEQ/L (3.5-5.1); SODIUM LEVEL 139 MEQ/L (136-145); TOTAL PROTEIN 7.1 GM/DL (6.4-8.2)
[2018-05-12] MEDS ORDERED: PRAV20TA2 PO (14:17)
--- NOTE | 2018-05-12 15:11 | REP ---
Clinical: Amaurosis fugax . Technique: Gonzalez scale and color Doppler evaluation using linear high frequency transducer Findings: Two-dimensional gonzalez scale and color images demonstrate minimal atheromatous plaquing with normal arterial lumen, laminar flow and no appreciable narrowing. Color Doppler interrogation demonstrates normal arterial wave patterns and velocities with no significant spectral broadening. Normal flow direction is appreciated in the bilateral vertebral arteries. RIGHT (cm/s) LEFT (cm/s) ICA peak systolic velocity 61.2 46.2 ICA diastolic velocity 27.8 19.7 ECA peak systolic velocity 74.6 72.4 CCA peak systolic velocity 65.8 76.1 ICA/CCA ratio 0.93 0.61 Impression: No hemodynamically significant areas of narrowing or stenosis appreciated. Based on set standards narrowing falls within the less than 50% range. Electronically Signed by Pilo Verde MD 05/12/2018 03:01 P
[2018-05-12 15:47] VITALS: BP 125/72
[2018-05-12] MEDS: ASPIRIN 81 MG ENTERIC TAB PO SCH (16:33)
[2018-05-12] MEDS: GABAPENTIN 300 MG CAP PO SCH ×2 (16:34→20:05)
[2018-05-12] MEDS: BISOPROLOL FUMARATE 5 MG TAB PO SCH (16:34)
[2018-05-12] MEDS: PANTOPRAZOLE 40MG TAB (PROTONIX) PO SCH (16:37)
[2018-05-12] MEDS ORDERED: metFORMIN XR 500MG TAB *GLUCOPHAGE XR PO SCH (18:00)
[2018-05-12 20:00] VITALS: BP 122/70
[2018-05-12] MEDS: APIXABAN 5 MG TAB (ELIQUIS) PO SCH (20:04)
[2018-05-12] MEDS: MAGNESIUM OXIDE 400 MG TAB (MAG-OX) PO SCH (20:04)
[2018-05-12] MEDS: OCUVITE 1 TAB PO SCH (20:04)
[2018-05-12] MEDS ORDERED: TRANDOLAPRIL 1 MG TAB PO SCH (21:00)
[2018-05-12] MEDS ORDERED: PRAVASTATIN 20 MG TAB PO SCH (21:00)
[2018-05-12] MEDS ORDERED: TAMSULOSIN 0.4 MG CAP PO SCH (21:00)
--- NOTE | 2018-05-12 21:37 | HPE ---
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 He said that he was just looking at his I-Pad around 9:30 this morning and he suddenly lost 90% of his vision in his right eye. He had a little bit of his nasal field preserved. Again, it lasted approximately 5 minutes and then spontaneously resolved. He came to the emergency room for evaluation. CT scan was negative. Ophthalmology recommended admission for further workup. The patient has no other focal deficits. He denies having this happen in the past. PAST MEDICAL HISTORY: 1. Hypertension. 2. Hyperlipidemia. 3. Diabetes. 4. History of mitral valve prolapse with repair in June 2012. 5. History of atrial flutter diagnosed in 2012, status post radiofrequency ablation. 6. History of paroxysmal atrial fibrillation. 7. Currently placed implantable loop recorder. PAST SURGICAL HISTORY: 1. History of appendectomy. 2. Hand surgery for trigger finger. ALLERGIES: Drug allergies to CECLOR, MOBIC, LEVAQUIN, CLINDAMYCIN, FLAGYL. FAMILY HISTORY: Noncontributory. SOCIAL HISTORY: The patient denies tobacco, alcohol or illicit drugs, but was a former smoker and smoked up to two packs per day for 17 years, but he quit many, many years ago in 1981. Again, denies alcohol or illicit drugs. MEDICATIONS: He takes at home: - Apixaban 5 mg orally twice a day - bisoprolol 5 mg by mouth daily - gabapentin 600 mg by mouth three times a day - magnesium oxide 250 mg by mouth twice a day - melatonin 10 mg by mouth at bedtime - metformin 500 mg by mouth daily - multivitamin one tablet by mouth daily - pantoprazole 40 mg by mouth daily - pravastatin 20 mg by mouth daily - Sonata 10 mg by mouth at bedtime - tamsulosin 0.4 mg by mouth daily - selenium 10 mg REVIEW OF SYSTEMS: Negative for all ten major systems except what is mentioned in the history of present illness. PHYSICAL EXAMINATION VITAL SIGNS: Blood pressure 105/64, heart rate 61 and regular, respiratory rate 16, temperature 98.2, oxygen saturation 98% on room air. Head is atraumatic, normocephalic. Neck is supple with no jugular venous distention (JVD). Lungs are clear to auscultation. S1, S2 audible. No murmurs appreciated. Abdomen is soft. Positive bowel sounds. No pedal edema. Skin is intact. Neurologic examination, no focalities noted and all visual cunha are preserved. The patient is awake, alert and oriented times three. LABORATORIES: WBC 5.8, hemoglobin 14.9, hematocrit 42.4, platelets are 227,000. Sodium 139, potassium 4.5, chloride 105, CO2 of 27, anion gap 7, BUN 15, creatinine 0.87, glucose 171. IMPRESSION: Amaurosis fugax. PLAN: The patient is to be admitted to the progressive care unit (PCU). We will get carotid Doppler and an echocardiogram. I discussed with neurology and ophthalmology, which was already consulted by the emergency room. Unfortunately, we cannot do MRI and MRA because of his implantable loop recorder is not compatible. We will add aspirin to his regimen for anticoagulation and continue his care in the progressive care unit (PCU). REGINA
[2018-05-13 06:08] LABS: BASO # 0.1 10^3/uL (0.0-0.2); BASO % 0.8 % (0.0-1.0); EOS # 0.2 10^3/uL (0.0-0.50); EOS % 3.4 % (0.0-3.0); HEMATOCRIT 42.6 % (42.0-52.0); HEMOGLOBIN 14.4 g/dl (13.5-17.5); LYMPH # 1.9 10^3/uL (1.5-4.5); LYMPH % 30.1 % (24.0-44.0); MEAN CORPUSCULAR HEMOGLOBIN 31.2 pg (27.0-33.0); MEAN CORPUSCULAR HGB CONC 33.8 g/dl (32.0-36.5); MEAN CORPUSCULAR VOLUME 92.2 fl (80.0-96.0); MONO # 0.5 10^3/uL (0.0-0.8); MONO % 7.5 % (0.0-5.0); NEUTROPHILS # 3.6 10^3/uL (1.8-7.7); NEUTROPHILS % 57.6 % (36.0-66.0); PLATELET COUNT, AUTOMATED 230 10^3/uL (150-450); RED BLOOD COUNT 4.62 10^6/uL (4.30-6.10); WHITE BLOOD COUNT 6.2 10^3/uL (4.0-10.0)
[2018-05-13 06:39] LABS: BLOOD UREA NITROGEN 12 MG/DL (7-18); CALCIUM LEVEL 8.5 MG/DL (8.8-10.2); CARBON DIOXIDE LEVEL 29 MEQ/L (21-32); CHLORIDE LEVEL 104 MEQ/L (98-107); CREATININE FOR GFR 0.85 MG/DL (0.70-1.30); GLOMERULAR FILTRATION RATE > 60.0 (>49); GLUCOSE, FASTING 104 MG/DL (70-100); POTASSIUM SERUM 4.6 MEQ/L (3.5-5.1); SODIUM LEVEL 139 MEQ/L (136-145)
[2018-05-13 08:00] VITALS: BP 121/74
--- NOTE | 2018-05-13 08:01 | ECGEPIP ---
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
[2018-05-13] MEDS ORDERED: MULTIVITAMINS/MINERALS THERAP 1 TAB PO SCH (09:00)
[2018-05-13] MEDS: APIXABAN 5 MG TAB (ELIQUIS) PO SCH (09:31)
[2018-05-13 09:32] VITALS: BP 121/74
[2018-05-13] MEDS: PANTOPRAZOLE 40MG TAB (PROTONIX) PO SCH (09:32)
[2018-05-13] MEDS: MAGNESIUM OXIDE 400 MG TAB (MAG-OX) PO SCH (09:32)
[2018-05-13] MEDS: GABAPENTIN 300 MG CAP PO SCH (09:32)
[2018-05-13] MEDS: ASPIRIN 81 MG ENTERIC TAB PO SCH (09:32)
[2018-05-13] MEDS: BISOPROLOL FUMARATE 5 MG TAB PO SCH (09:32)
[2018-05-13] MEDS: OCUVITE 1 TAB PO SCH (09:32)
--- NOTE | 2018-05-13 11:58 | CR ---
DATE OF CONSULTATION: 05/12/2018 REASON FOR CONSULTATION: Suspected transient ischemic attack (TIA), amaurosis fugax. Ovidio Moreau is a 68-year-old male with past medical history significant for paroxysmal atrial fibrillation currently on Eliquis. He has had prior ablation place in the past. The patient has been on Coumadin, Pradaxa, Xarelto, and now Eliquis. I 2011 he developed a GI bleed thought to be secondary to Flagyl use. The patient was taken off on Pradaxa at that time, received three transfusions. The patient had severe gastrointestinal (GI) bleeding at the time. He has not had any recurrence since. Due to his recurring atrial fibrillation, the patient was last placed on Eliquis. He does not take a low dose aspirin every day he states. Today, the patient early in the morning while reading his iPad, he suddenly developed right-sided vision loss affecting only the right eye. He states he felt like a curtain was closing from right to left. Within 5 minutes the vision did come back. He did not lose completed vision. He denied having any headache. He denied any facial symptoms, arm or leg symptoms. He denies any numbness or weakness. He does have history of prediabetes, for which he is on metformin. The patient states he has not had an episode like this in the past. The patient is pending an ophthalmologic evaluation. The patient was recommended to start a low-dose aspirin in addition to the Eliquis. He has a loop recorder and cannot have a 3 Barby MRI he states. However, he can have a 1.5 Barby MRI. An MRI of the brain and MR angiogram of the head, carotid ultrasound is recommended. If these studies cannot be done CT angiogram of the head and neck can be obtained. Head CT has already been completed which is negative with only age related small vessel changes and atrophy. REVIEW OF SYSTEMS: 14-point review of systems obtained and is negative except as per HPI. ALLERGIES: 1. Ceclor - anaphylaxis. 2. Mobic - rash. 3. Levaquin - tendonitis. 4. Clindamycin - nausea, vomiting. 5. metronidazole - nausea, vomiting. HOME MEDICATIONS: - vitamin C - vitamin E - Ocuvite - Flomax - Eliquis - Carvedilol - cranberry - trandolapril - pantoprazole - ferrous gluconate - multivitamin - Osteo Bi-Flex - red yeast - pravastatin 40 mg daily SOCIAL HISTORY: The patient denies use of any tobacco, alcohol or illicit drugs. FAMILY HISTORY: Noncontributory. LABORATORIES: CBC, CMP within normal limits. INR 1.01, PT is 13.4. PHYSICAL EXAMINATION: Blood pressure is 105/64, pulse rate 61, respiratory rate 16, temperature is 98.2 degrees Fahrenheit oxygenation 98% on room air. The patient is awake, alert, oriented to person, place and time. Speech language comprehension, repetition are intact. Pupils are to 2.5 mm, round and reactive to light. Extraocular movements are intact in all directions. The visual cunha are full to confrontation. No facial asymmetry on activation. Palate elevates symmetrically. Tongue is midline. Weakness in sternocleidomastoids bilaterally. Hearing is subjectively equal to finger rub. There is no pronator drift. Strength is 5/5 including bilateral deltoids, biceps, triceps, handgrip, finger spread, finger extensors, quadriceps, anterior tibialis, extensor hallucis longus. Deep tendon reflexes are 2s in the upper extremities. Absent at the patellas and Achilles. Sensory is intact to light touch in all four extremities. Coordination normal [id number] without signs of ataxia or dysmetria. ASSESSMENT/PLAN: 1. 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 Cannot entirely exclude transient ischemic attack (TIA). PLAN: 1. Obtain MRI brain, MR angiogram and carotid ultrasound. If cannot obtain MR angiogram, then complete CT angiograms of the head and neck. 2. Continue telemetry monitoring. 3. Add low dose aspirin in addition to Eliquis. The patient is aware of increased risk of bleeding. The patient will be monitored for any GI bleeding. 4. Continue atorvastatin 40 mg by mouth daily. 5. Physical therapy/occupational therapy (PT/OT) evaluation. 6. Follow-up in the stroke clinic. 7. Follow-up with ophthalmology.
[2018-05-13 12:00] VITALS: BP 149/78
[2018-05-13] MEDS ORDERED: ASPI81TAEC PO (13:11)
--- NOTE | 2018-05-13 18:47 | DS.PDOC ---
Discharge Summary General Date of Admission May 12, 2018 at 13:50 Date of Discharge 05/13/2018 Primary Care Physician: Clyde Capps M.D. Attending Physician: Suresh Watson MD Specialist/Consultants Involve: IAM JASON MD Discharge Summary PROCEDURES PERFORMED DURING STAY: None ADMITTING DIAGNOSES: 1. Amaurosis fugax DISCHARGE DIAGNOSES: 1. Amaurosis fugax COMPLICATIONS/CHIEF COMPLAINT: Afx (Amaurosis Fugax). HISTORY OF PRESENT ILLNESS: Patient is a 68 year old male with past medical history with paroxysmal atrial fibrillation status post ablation, HTN presented to the ER with right eye blindness. Patient was sitting at home reading his eye pad. He suddenly lost most of his vision. It started as a curtain closing. He admits he closed both eyes and limited the vision loss to the right eye. It lasted roughly 5 minutes long and improved on its own. He came to the ER and had further work up. He noted a similar event years ago but lost vision more like a closing lens. He had CT scan that was negative. He was unable to have MRI due to implantable loop recorder. HOSPITAL COURSE: Since admission patient was observed over night. No other repeat events or symptoms. Was seen by neurology who recommended patient see o phthalmology. Since patient could not have head MRI they recommended head CT and neck CT. A carotid US was performed, showed less than 50% stenosis. Blood pressure remained in control. No neurologic deficits noted. DISCHARGE MEDICATIONS: Please see below. ALLERGIES: Please see below. PHYSICAL EXAMINATION ON DISCHARGE: VITAL SIGNS: Please see below. GENERAL: Alert, comfortable. HEENT: Atraumatic. NECK: Supple. CARDIOVASCULAR EXAMINATION: Normal s1, s2. RESPIRATORY EXAMINATION: Clear to auscultation. ABDOMINAL EXAMINATION: Soft, nondistended. EXTREMITIES: No lower extremity edema. SKIN: No rashes. NEUROLOGICAL EXAMINATION: Cranial nerves 2-12 grossly intact. Muscle strength C4-T1 and L4-S1 intact bilaterally. Negative finger nose finger test. PSYCHIATRIC EXAMINATION: Normal affect. LABORATORY DATA: Please see below. IMAGING: Carotid vascular US No hemodynamically significant areas of narrowing or stenosis appreciated. Based on set standards narrowing falls within the less than 50% range. Head CT Age-related atrophy and microvascular ischemic changes. No evidence for acute intracranial pathology or trauma/injury. Mild sinus disease. PROGNOSIS: ACTIVITY: [As tolerated]. DIET: low salt DISCHARGE PLAN: Home DISPOSITION: 01 Home, Self-Care. DISCHARGE INSTRUCTIONS: 1. Follow up with PCP in the next week. 2. Call ophthalmology office, Dr. Son for outpatient follow up. 3. Continue all medications as prescribed. 4. Continue aspirin 81 mg daily, recommended by neurology. ITEMS TO FOLLOWUP ON ON OUTPATIENT: 1. Echocardiogram DISCHARGE CONDITION: [Stable]. TIME SPENT ON DISCHARGE: Greater than minutes. Vital Signs/I&Os Vital Signs Date Time Temp Pulse Resp B/P (MAP) Pulse Ox O2 Delivery O2 Flow Rate FiO2 05/13/18 12:00 98.2 58 20 149/78 (101) 97 05/12/18 15:26 Room Air I&O- Last 24 Hours up to 6 AM 05/13/18 06:00 Intake Total 1160 ml Output Total 800 ml Balance 360 ml Laboratory Data Labs 24H Laboratory Tests 2 05/13/18 05:47: Immature Granulocyte % (Auto) 0.6, White Blood Count 6.2, Red Blood Count 4.62, Hemoglobin 14.4, Hematocrit 42.6, Mean Corpuscular Volume 92.2, Mean Corpuscular Hemoglobin 31.2, Mean Corpuscular Hemoglobin Concent 33.8, Red Cell Distribut ion Width 12.9, Platelet Count 230, Neutrophils (%) (Auto) 57.6, Lymphocytes (%) (Auto) 30.1, Monocytes (%) (Auto) 7.5H, Eosinophils (%) (Auto) 3.4H, Basophils (%) (Auto) 0.8, Neutrophils # (Auto) 3.6, Lymphocytes # (Auto) 1.9, Monocytes # (Auto) 0.5, Eosinophils # (Auto) 0.2, Basophils # (Auto) 0.1, Nucleated Red Blood Cells % (auto) 0.0, Anion Gap 6L, Glomerular Filtration Rate > 60.0, Blood Urea Nitrogen 12, Creatinine 0.85, Sodium Level 139, Potassium Level 4.6, Chloride Level 104, Carbon Dioxide Level 29, Calcium Level 8.5L CBC/BMP Laboratory Tests 05/13/18 05:47 Red Blood Count 4.62, Mean Corpuscular Volume 92.2, Mean Corpuscular Hemoglobin 31.2, Mean Corpuscular Hemoglobin Concent 33.8, Red Cell Distribution Width 12.9, Neutrophils (%) (Auto) 57.6, Lymphocytes (%) (Auto) 30.1, Monocytes (%) (Auto) 7.5 H, Eosinophils (%) (Auto) 3.4 H, Basophils (%) (Auto) 0.8, Neutrophils # (Auto) 3.6, Lymphocytes # (Auto) 1.9, Monocytes # (Auto) 0.5, Eosinophils # (Auto) 0.2, Basophils # (Auto) 0.1, Calcium Level 8.5 L Discharge Medications Scheduled (Multivitamins) 1 Cap Cap, 1 CAP PO DAILY, (Reported) (Zaleplon) 10 Mg Cap, 10 MG PO QHS, (Reported) Apixaban Base (Eliquis) 5 Mg Tab, 5 MG PO BID, (Reported) Aspirin (Aspirin EC) 81 Mg Tabec, 81 MG PO DAILY Bisoprolol Fumarate (Bisoprolol Fumarate) 5 Mg Tab, 5 MG PO DAILY, (Reported) Gabapentin (Neurontin) 600 Mg Tab, 600 MG PO TID, (Reported) Magnesium Oxide (Magnesium) 250 Mg Tab, 250 MG PO BID, (Reported) Melatonin (Melatonin) 10 Mg Cap, 10 MG PO QHS, (Reported) Metformin Hydrochloride (Metformin HCl ER) 500 Mg Tab, 500 MG PO QPM, (Reported) Multivitamin Areds (Preservision Areds) 1 Tab Tab, 1 TAB PO BID, (Reported) Pantoprazole Sodium (Pantoprazole Sodium) 40 Mg Tab, 40 MG PO DAILY, (Reported) Pravastatin Sodium (Pravastatin Sodium) 20 Mg Tab, 20 MG PO QHS, (Reported) Tamsulosin Hydrochloride (Flomax) 0.4 Mg Cap, 0.4 MG PO QPM, (Reported) Trandolapril (Trandolapril) 1 Mg Tab, 1 MG PO QHS, (Reported) Turmeric (Curcumin) 1 Pow Pow, 2 CAP PO DAILY, (Reported) Allergies Coded Allergies: Cephalosporins (Unverified Allergy, Severe, CECLOR -THROAT CLOSED, CHEST TIGHTNESS, PRURITIS, SWELLING, 01/29/18) Meloxicam (Verified Allergy, Intermediate, HIVES, 01/29/18) Clindamycin (Verified Adverse Reaction, Intermediate, ulcer, 02/06/18) Levofloxacin (Verified Adverse Reaction, Intermediate, TENDONITIS, 02/06/18) Metronidazole (Verified Adverse Reaction, Intermediate, ulcer, 02/06/18) GME ATTESTATION GME ATTESTATION My faculty preceptor for this patient encounter was physically present during the encounter and was fully available. All aspects of the patient interview, examination, medical decision making process, and medical care plan development were reviewed and approved by the faculty preceptor. The faculty preceptor is aware and concurs with the plan as stated in the body of this note and will attest to such by his/her cosignature. RAJENDRA PEREZ DO May 13, 2018 17:18
--- NOTE | 2018-05-14 06:53 | ECHO ---
DATE OF STUDY: 05/13/2018 REFERRING PHYSICIAN: Dr. Chicas INDICATION: Transient cerebral ischemia, unspecified. HEIGHT: 178 cm. WEIGHT: 109 kg. 2-D MEASUREMENTS: Ventricular septum: 1.16 cm Posterior wall: 1.13 cm Left ventricle diastole: 4.5 cm Aortic root at sinus of Valsalva: 3.9 cm Left atrium: 3.9 cm Aortic annulus: 2.0 cm Left atrial volume index: 17 Inferior vena cava: 1.5 cm with normal respiratory variation DOPPLER MEASUREMENTS: LVOT velocity: 101 cm/sec LVOT VTI: 21.59 cm Mitral E velocity: 215 cm/sec (continuous wave) Mean mitral valve gradient: 4 mmHg Very mild tricuspid regurgitation Estimated right ventricular systolic pressure 37 mmHg assuming a right atrial pressure of 5 mmHg DESCRIPTION: The rhythm was sinus bradycardia. Image quality was fair. No pericardial effusion. This was a 2-D, M-mode, color flow Doppler and pulse wave Doppler examination and included mitral annular tissue Doppler. CONCLUSIONS: 1. Normal left ventricle internal dimensions and wall thickness. Normal regional LV wall motion and wall thickening. Normal LV systolic function. LVEF 60% by visual estimate. Unable to determine LV diastolic function in the setting of status post mitral valve repair. 2. Status post mitral valve repair. No mitral stenosis or mitral regurgitation. 3. Mild dilatation of the aortic root at the level of the sinus of Valsalva. 4. Mild aortic valve sclerosis of a 3-cuspid aortic valve. No aortic stenosis or regurgitation. 5. Suggestive of mild elevation of estimated right ventricle systolic pressure.
== END 2018-05-13 14:08 | disposition home or self-care (01) ==
LOC: M ED 10:44 → M ED INP 13:50 → M PCU 15:32
PROVIDERS: ADMIT Internal Medicine; ATTEND Family Medicine
DX: G45.3 Amaurosis fugax (principal); I10 Essential (primary) hypertension; I48.0 Paroxysmal atrial fibrillation; E78.5 Hyperlipidemia, unspecified; E11.9 Type 2 diabetes mellitus without complications; Z79.82 Long term (current) use of aspirin; Z79.84 Long term (current) use of oral hypoglycemic drugs; Z79.899 Other long term (current) drug therapy; Z88.1 Allergy status to other antibiotic agents
CPT/HCPCS: 36415; 70450; 80048; 80053; 85025; 85610; 93005; 93306; 93880; 99285; G0378

== ENCOUNTER → 2018-05-14 | Outpatient (CLI) | payer MEDICARE, OTHER ==
[~2018-05-14] MED LIST changes: +ASPI81TAEC PO
--- NOTE | 2018-05-30 00:26 | ECWPNPC ---
PATIENT NAME: TRAVIS CARDENAS : 1950 GENDER: MALE VISIT DATE: 05/14/2018 DISCHARGE DATE: 05/14/18 1124 VISIT LOCKED DATE TIME: PHYSICIAN: ELAINE DAVILA PHYSICIAN PAGER NO: [phone] RESOURCE: ELAINE DAVILA REASON FOR APPOINTMENT 1. POST PROC HISTORY OF PRESENT ILLNESS HISTORY OF PRESENT ILLNESS: HERE FOR F/U OF CHRONIC LOW BACK PAIN.RATING PAIN VAS 6/10.PAIN IS INTRMITTENT AND SHARP. PAIN THE PATIENT DESCRIBES THE PAIN... FALL RISK SCREENING: SCREENING :NO FALLS IN THE PAST YEAR CURRENT MEDICATIONS TAKING VITAMIN D (CHOLECALCIFEROL) 1000 UNIT TABLET 2 TABLET ORALLY ONCE A DAY, NOTES: 729 TAKING PROTOPIC 0.1 % OINTMENT 1 APPLICATION TO AFFECTED AREA EXTERNALLY BID X 7 DAYS TO ECZEMA PLAQUES, NOTES: MONTHS AGO TAKING FLOMAX 0.4 MG CAPSULE 2 CAPSULES 30 MINUTES AFTER THE SAME MEAL EACH DAY ORALLY QHS, NOTES: 03/26/182244 TAKING MAGNESIUM 200 MG TABLET 1 TABLET WITH A MEAL ORALLY TWICE A DAY, NOTES: 729 TAKING MELATONIN 10 MG TABLET 1 TABLET AT BEDTIME NEEDED WITH FOOD ORALLY ONCE A DAY, NOTES: 03/26/182229 TAKING VOLTAREN 1 % GEL ONE APPLICATION TRANSDERMAL TWICE A DAY TO BACK AND HAMSTRINGS., NOTES: NONE RECENT TAKING GABAPENTIN 600 MG TABLET 1 CAPSULE ORALLY THREE TIMES A DAY, NOTES: 729 TAKING PRAVASTATIN SODIUM 20 MG TABLET 1 TABLET ORALLY AT BEDTIME, NOTES: 03/26/182244 TAKING PANTOPRAZOLE SODIUM 40 MG TABLET DELAYED RELEASE 1 TABLET ORALLY EVERY MORNING, NOTES: 729 TAKING APIXABAN 5 MG TABLET 1 TAB ORALLY BID, NOTES: 03/24/18 0700 TAKING MULTIVITAMINS OTC TABLET 1 TABLET ORALLY ONCE A DAY, NOTES: 729 TAKING AREDS _ CAPSULE 1 CAPLSULE ORALLY TWICE A DAY, NOTES: 729 TAKING CURCUMIN TABLET 2 CAP ORAL DAILY, NOTES: 729 TAKING BISOPROLOL FUMARATE 5 MG TABLET 1 TABLET ORALLY ONCE A DAY, NOTES: 729 TAKING AMOXICILLIN 500 MG CAPSULE 4 CAPSULE ORALLY DIRECTED, NOTES: NONE RECENT - BEFORE DENTIST APPOINTMENTS TAKING SONATA 10 MG CAPSULE 1 CAPSULE AT BEDTIME NEEDED ORALLY AT BEDTIME PRN INSOMNIA, NOTES: 03/26/182244 TAKING METFORMIN HCL ER 500 MG TABLET EXTENDED RELEASE 24 HOUR 1 TABLET WITH EVENING MEAL ORALLY AC DINNER, NOTES: 03/26/18 1900 TAKING TRANDOLAPRIL 1 MG TABLET 1 TABLET ORALLY AT BEDTIME, NOTES: 03/26/18 2245 TAKING ASPIRIN 81 81 MG TABLET CHEWABLE 1 TABLET ORALLY ONCE A DAY NOT-TAKING GABAPENTIN 600 MG TABLET 1 CAPSULE ORALLY THREE TIMES A DAY, NOTES: DUPLICATE NOT-TAKING METFORMIN HCL ER 500 MG TABLET EXTENDED RELEASE 24 HOUR 1 TABLET WITH EVENING MEAL ORALLY AC DINNER, NOTES: DUPLICATE NOT-TAKING TAMSULOSIN HCL 0.4 MG CAPSULE 2 CAPSULES ORALLY AT BEDTIME, NOTES: DUPLICATE MEDICATION LIST REVIEWED AND RECONCILED WITH THE PATIENT PAST MEDICAL HISTORY IMPAIRED FASTING GLUCOSE HYPERLIPIDEMIA 2B HYPERTENSION HISTORY OF LEFT NEPHROLITHIASIS X1 STATUS POST LASER LITHOTRIPSY BY DR. FULTON OF 2009-10/2010 24 URINE ONLY WITH MILDY ELEVATED OXALATE OBESITY LELO. SEVERE ON CPAP LUMBAR SPONDYLSOSIS-L3/4 DIFFUSE BULGE, AP 8; L4/5 BROAD CENTRAL HNP C L NF NARROWING; L5/1 R 7 MM FACET CYST C MILD R NF NARROWING BY 09/2017 MRI HISTORY OF TRUNK/FACIAL AK'S ASYMPTOMATIC CHOLELITHIASIS-SEEN BY SEPTEMBER 2008 CT UMBILICAL HERNIA-SEEN BY SEPTEMBER 2008 CT INSOMNIA UGI BLEED SECONDARY TO DUODENAL ULCER (CAUSED BY PRECEDENT AUGMENTIN/FLAGYL, ASPIRIN, NSAID AND ETHOH USE), REQUIRED 6 UNITS PRBCS C ZEINAB HEMOGLOBIN 6.7, TREATED MAY 19, 2011 WITH THERMAL THERAPY-[facility]/08/2011 EGD-HIATAL HERNIA-[facility] CERVICAL DJD-11/2011 MRI C C3-7 SPONDYLOSIS 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 JOE'S ATRIAL FLUTTER-S/P R ATRIAL ABLATION 10/2012-DR. PEREZ// PATRICK BLUM MD R UPPER BACK BCC-EXCISED 10/2015-[facility] FACIAL AKS MILD DILATED AORTIC ROOT, NORMAL MVR S MS/MR BY 04/2016 TTE ANTECOL ATRIAL FIBRILLATION, PAROXYSMAL-S/P CARDIOVESION 04/02/16 [facility] [place]17 LOADED C DIGOXIN IV/PO R ROMAN CATHOLIC 4 MM SCC IN-SITU EXCISED 05/2017-[facility] ALLERGIES LEVAQUIN: TENDONS TIGHTEN: ALLERGY MOBIC: HIVES: ALLERGY CEPHALOSPORINS: SEVERE: ALLERGY CLINDAMYCIN HCL: PERFORATED INTESTINES: ALLERGY FLAGYL: ? DUODENAL ULCER: SIDE EFFECTS CECLOR: HIVES: SIDE EFFECTS SURGICAL HISTORY COLONOSCOPY-NORMAL APRIL 2003 L THR-FISH 01/23/2014 UMBILICAL HERNIA REPAIR-[facility] DR. PURCELL 04/28/15 RT-DR. AHMADI-GENNESSMohan ORTHO 03/12/17 HEART LOOP [id number]. ED PEREZ 06/12/17 LEFT CATARACT -[facility] -[facility] 11/29/17 APPENDECTOMY 05/1958 LASER EYE SURGERY 03/1994 LEFT WRIST SURGERY 02/2004 LEFT KIDNEY LITHTRIPSY 12/2009 NEGRITO 04/2012 EGD X3 05/2011 MITRAL VALAVE REPAIR AND CYRO ABLATION 06/2012 RIGHT HIP REPLACEMET 03/2017 RIGHT CATARACT 02/2018 FAMILY HISTORY FATHER: , DIAGNOSED WITH HEART DISEASE MOTHER: , DIAGNOSED WITH STROKE, OTHER SIBLINGS: ALIVE 1 BROTHER(S) - HEALTHY. 1 SON(S) - HEALTHY. MOTHER - DEMENTIA, COPDFATHER AND BROTHER-OLDER- DX ESSENTIAL TREMORS. SOCIAL HISTORY GENERAL: TOBACCO USE ARE YOU A:NONSMOKER ARE YOU A:FORMER SMOKER HOW LONG HAS IT BEEN SINCE YOU LAST SMOKED?> 10 YEARS BMI CARE GOAL FOLLOW-UP ABOVE NORMAL BMI FOLLOW-UPGIVING ENCOURAGEMENT TO EXERCISE ALCOHOL SCREENING DID YOU HAVE A DRINK CONTAINING ALCOHOL IN THE PAST YEAR?YES HOW OFTEN DID YOU HAVE SIX OR MORE DRINKS ON ONE OCCASION IN THE PAST YEAR?NEVER (0 POINTS) HOW MANY DRINKS DID YOU HAVE ON A TYPICAL DAY WHEN YOU WERE DRINKING IN THE PAST YEAR?3 OR 4 (1 POINT) HOW OFTEN DID YOU HAVE A DRINK CONTAINING ALCOHOL IN THE PAST YEAR?TWO TO THREE TIMES PER WEEK (3 POINTS) POINTS4 INTERPRETATIONPOSITIVE RECREATIONAL DRUG USE DRUG USE?NO CAFFEINE 2-5/DAY. SEXUAL HX HAD SEX IN THE LAST 12 MONTHS (VAGINAL, ORAL, OR ANAL)?YES WITHWOMEN ONLY USE PROTECTION?NO HAVE YOU EVER HAD AN STD?NO HIV / HEP-C SCREENING HIV TEST OFFERED TO PATIENT:YES DATE OFFERED:06/20/2016 TEST ACCEPTED:NO HEP-C TEST OFFERED TO PATIENT:YES DATE OFFERED:06/20/2016 REASON:PATIENT DECLINED TEST ACCEPTED:NO REASON:PATIENT DECLINED SCIENTOLOGY SCIENTOLOGY NO NONDENOMINATIONAL BELIEFS THAT WOULD IMPACT HEALTH CARE. LANGUAGE LANGUAGES SPOKEN:[place] LEARNING BARRIERS / SPECIAL NEEDS CHANGE FROM LAST VISIT?NO BARRIERS TO LEARNING?NO HEARING IMPAIRED?NO VISION IMPAIRED?NO COGNITIVELY IMPAIRED?NO READINESS TO LEARN?YES LEARNING PREFERENCES?NO LEARNING CAPABILITIES PRESENT?YES EMOTIONAL BARRIERS?NO DOMESTIC VIOLENCE DO YOU FEEL SAFE IN YOUR ENVIRONMENT?YES OCCUPATION: RETIRED. DIET: REGULAR. EXERCISE: NO REGULAR EXERCISE. MARITAL STATUS: . PAIN CLINIC PFS, CLERGY, PUBLIC HEALTH REFERRALS HAS THE PATIENT BEEN EDUCATED REGARDING HIS/HER PLAN OF CARE?YES HAS THE PATIENT BEEN EDUCATED REGARDING PAIN, THE RISK FOR PAIN, THE IMPORTANCE OF EFFECTIVE PAIN MANAGEMENT, AND THE PAIN ASSESSMENT PROCESS?YES ADVANCE DIRECTIVE ADVANCE DIRECTIVE DISCUSSED WITH PATIENT:YES HCP - ERICK CARDENAS () REVIEWED WITH PATIENT 02/14/18 0938REVIEWED WITH PATIENT 03/27 18 1202 JS REVIEWED WITH PATIENT 05/14/18 1050 LAS. HOSPITALIZATION/MAJOR DIAGNOSTIC PROCEDURE RESEARCH-RELATED 01/2018 SURGERY RELATED LOST VISION IN ONE EYE FOR 5 MINUTES, OVERNIGHT HOSPITAL STAY FOR TESTING 05/28 REVIEW OF SYSTEMS REVIEWED BY: PROVIDER: ELAINE CANTU . CONSTITUTIONAL: ANY CHANGE IN YOUR MEDICAL CONDITION? YES PT REPORTS HE HAD AN EPISODE LOSING HIS VISION IN HIS RIGHT EYE. EPISODE LASTED 5 MINUTES, WENT TO ED. OVERNIGHT STAY FOR TESTING, SAW OPTHAMOLOGIST . EPISODE ATTRIBUTED BY HIS DOCTORS TO A BLOOD CLOT IN HIS RIGHT EYE THAT DISSOLVED R/T ELIQUIS. . CHILLS NO . FEVER NO . INFECTION: DO YOU HAVE NEW INFECTIONS? NO . DO YOU HAVE HISTORY OF MRSA? NO . MUSCULOSKELETAL: ANY NEW PATTERNS OF PAIN OR NUMBNESS? NO . GASTROENTEROLOGY: ANY NEW CHANGE IN BOWEL CONTROL? NO . GENITOURINARY: ANY NEW CHANGE IN BLADDER CONTROL? NO . IS THERE A CHANCE YOU COULD BE ? NO . HEMATOLOGY/LYMPH: DO YOU TAKE ANY BLOOD THINNERS? (FOR EXAMPLE- COUMADIN, PLAVIX, AGGRENOX, PLATEL, PRADAXA, OR XARELTO) YES ELIQUIS . WHEN WAS YOUR LAST DOSE? DATE: TIME: . NEUROLOGY: HAVE YOU FALLEN IN THE PAST 12 MONTHS? YES PT SLIPPED ON THE ICE AND FELL ONTO HIS BUTT, AND CUSHIONED FALL WITH HANDS. SPRAINED HIS LEFT WRIST. . ANY NEW EXTREMITY NUMBNESS OR WEAKNESS? YES PT REPORTS RIGHT LEG WITH DECREASE RANGE OF MOTION, WHEN HE MOVES HIS LEG UP, HE GETS EXCRUCIATING PAIN SHOOTING UP HIS LEG. . CARDIOLOGY: DO YOU HAVE A PACEMAKER OR DEFIBRILLATOR? NO . RESPIRATORY: HAVE YOU BEEN SICK IN THE PAST WEEK? NO . FEVER NO . FLU LIKE SYMPTOMS? NO . COUGH NO . INTEGUMENTARY: DO YOU HAVE ANY RASHES OR OPEN SORES? NO . ALLERGIC/IMMUNO: ARE YOU ALLERGIC TO IV DYE? NO . ANY NEW ALLERGIES? NO . PSYCHIATRIC: DO YOU HAVE THOUGHTS OF HURTING YOURSELF OR SOMEONE ELSE? NO . ARE YOU ABUSED, NEGLECTED, OR IN AN UNSAFE ENVIRONMENT? NO . ENDOCRINOLOGY: ARE YOU DIABETIC? NO . OTHER: DO YOU NEED ANY PRESCRIPTIONS? NO . IF YES, PLEASE LIST: ____ . ANY NEW PROBLEMS WITH YOUR MEDICATIONS? NO . WHEN DID YOU LAST EAT? ____ . WHEN DID YOU LAST DRINK? ____ . WHAT DID YOU LAST DRINK? ____ . NAME OF PERSON DRIVING YOU HOME? ____ . DO YOU HAVE ANY OTHER QUESTIONS OR CONCERNS NO . VITAL SIGNS WT 251 LBS, HT 70 IN, BMI 36.01 INDEX, BP 118/69 MM HG, HR 62 /MIN, RR 18 /MIN, TEMP 97.6 F, OXYGEN SAT % 94%, SAFE IN ENV? (Y/N) YES, NA INITIALS AW 1008, REVIEWED BY: ARIN. EXAMINATION GENERAL EXAMINATION: GENERAL APPEARANCE:AWAKE,ALERT ,PLEAASANT . PSYCHAFFECT NORMAL . NECK:TRACHEA MIDLINE. NO CERVICAL OR SUPRACLAVICULAR LYMPHADENOPATHY NOTED . LUNGS:LUNG ALDRICH ARE CLEAR TO AUSCULTATION BILATERALLY. GOOD MOVEMENT OF AIR . HEART:S1, S2 IN A REGULAR RATE AND RHYTHM. NO SIGNIFICANT MURMURS, RUBS OR GALLOPS NOTED . MUSCULOSKELETAL:WEAKNESS OVER RIGHT LEG.LEFT LEG IS 5/5 MST. DIAGNOSTIC TESTS REVIEWEDMRI L/S [id number] . ASSESSMENTS LUMBOSACRAL RADICULOPATHY - M54.17 (PRIMARY) FACET ARTHROPATHY, LUMBOSACRAL - M47.817 TREATMENT LUMBOSACRAL RADICULOPATHY NOTES: RIGHT L4/5-L5/S1 TRANSFORAMINAL RODGER. PROCEDURE CODES FA211 ESTABILISHED PATIENT [facility] FACILITY CHARGE DISPOSITION & COMMUNICATION FOLLOW UP POST (REASON: RIGHT L4/5-L5/S1 TRANSFORAMINAL RODGER) ELECTRONICALLY SIGNED BY ELAINE CANTU, PEPE ON 05/29/2018 AT 01:59 PM EST DISCLAIMER : THIS IS A VISIT SUMMARY EXTRACTED FROM THE [employer] CHART. IT IS NOT A COPY OF THE [employer] PROGRESS NOTE. REGINA
== END ==
LOC: M PAIN 09:30
PROVIDERS: ATTEND Nurse Practitioner Family
DX: M54.17 Radiculopathy, lumbosacral region (principal); M47.817 Spondylosis without myelopathy or radiculopathy, lumbosacral region; R73.01 Impaired fasting glucose; E78.5 Hyperlipidemia, unspecified; I10 Essential (primary) hypertension; E66.9 Obesity, unspecified; G47.33 Obstructive sleep apnea (adult) (pediatric); M47.896 Other spondylosis, lumbar region; G47.00 Insomnia, unspecified; I48.0 Paroxysmal atrial fibrillation; Z87.442 Personal history of urinary calculi; Z85.828 Personal history of other malignant neoplasm of skin; Z98.42 Cataract extraction status, left eye; Z96.641 Presence of right artificial hip joint; Z98.41 Cataract extraction status, right eye; Z79.01 Long term (current) use of anticoagulants; Z79.84 Long term (current) use of oral hypoglycemic drugs; Z79.899 Other long term (current) drug therapy; Z79.82 Long term (current) use of aspirin; Z88.1 Allergy status to other antibiotic agents; Z88.6 Allergy status to analgesic agent; Z88.8 Allergy status to other drugs, medicaments and biological substances

== ENCOUNTER → 2018-06-06 | Outpatient (CLI) | payer MEDICARE, OTHER ==
[~2018-06-06] MED LIST changes: +BUPIVACAINE HCL 0.25% 30 ML VIAL As Ordered ONE; +ISOVUE-M 300 61% 15ML VIAL (Q9967) As Ordered ONE; +LIDOCAINE 1% SDV INJ 30 ML VIAL As Ordered ONE; +dexameTHASONE 10 MG/1 ML VIAL PRES.FREE (J1100) As Ordered ONE; +diazePAM 5 MG TAB As Ordered ONE; +diphenhydrAMINE 25 MG CAP As Ordered ONE; +oxyCODONE 5MG TAB As Ordered ONE
--- NOTE | 2018-06-06 16:57 | REP ---
Partial lumbar spine series: 76 views . History: Injection procedure for pain. 1 minute 49 seconds of fluoroscopy time is reported. Findings: A sequence of 76 fluoroscopically obtained last image hold procedural spot radiographs of the lumbar spine document needle position and contrast injection associated with injection procedure. Electronically Signed by Richard Bradley MD 06/06/2018 04:49 P
--- NOTE | 2018-06-15 23:23 | ECWPNPC ---
PATIENT NAME: TRAVIS CARDENAS : 1950 GENDER: MALE VISIT DATE: 06/06/2018 DISCHARGE DATE: 06/06/18 1726 VISIT LOCKED DATE TIME: PHYSICIAN: BRITTNEY AGUILERA MD PHYSICIAN PAGER NO: [phone] RESOURCE: BRITTNEY AGUILERA MD REASON FOR APPOINTMENT 1. RIGHT TRANSFORAMINAL RODGER HISTORY OF PRESENT ILLNESS HISTORY OF PRESENT ILLNESS: PAIN THE PATIENT DESCRIBES THE PAIN... FALL RISK SCREENING: SCREENING : NO FALLS IN THE PAST YEAR. CURRENT MEDICATIONS TAKING VITAMIN D (CHOLECALCIFEROL) 1000 UNIT TABLET 2 TABLET ORALLY ONCE A DAY, NOTES: 06/06/18 TAKING PROTOPIC 0.1 % OINTMENT 1 APPLICATION TO AFFECTED AREA EXTERNALLY BID X 7 DAYS TO ECZEMA PLAQUES, NOTES: NONE LATELY TAKING MAGNESIUM 200 MG TABLET 1 TABLET WITH A MEAL ORALLY TWICE A DAY, NOTES: 06/06/18 TAKING TRANDOLAPRIL 1 MG TABLET 1 TABLET ORALLY AT BEDTIME, NOTES: 06/05/18 TAKING METFORMIN HCL ER 500 MG TABLET EXTENDED RELEASE 24 HOUR 1 TABLET WITH EVENING MEAL ORALLY AC DINNER, NOTES: 06/05/18 TAKING PANTOPRAZOLE SODIUM 40 MG TABLET DELAYED RELEASE 1 TABLET ORALLY EVERY MORNING, NOTES: 06/06/18 TAKING BISOPROLOL FUMARATE 5 MG TABLET 1 TABLET ORALLY ONCE A DAY, NOTES: 06/06/18 TAKING APIXABAN 5 MG TABLET 1 TAB ORALLY BID, NOTES: 06/03/18 TAKING MULTIVITAMINS OTC TABLET 1 TABLET ORALLY ONCE A DAY, NOTES: 06/06/18 TAKING AREDS _ CAPSULE 1 CAPLSULE ORALLY TWICE A DAY, NOTES: 06/06/18 TAKING CURCUMIN TABLET 2 CAP ORAL DAILY, NOTES: 06/06/28 TAKING AMOXICILLIN 500 MG CAPSULE 4 CAPSULE ORALLY DIRECTED, NOTES: NONE RECENT - BEFORE DENTIST APPOINTMENTS TAKING VOLTAREN 1 % GEL ONE APPLICATION TRANSDERMAL TWICE A DAY TO BACK AND HAMSTRINGS., NOTES: NONE LATELY TAKING GABAPENTIN 600 MG TABLET 1 CAPSULE ORALLY THREE TIMES A DAY, NOTES: 06/06/18 TAKING TAMSULOSIN HCL 0.4 MG CAPSULE 2 CAPSULES ORALLY AT BEDTIME, NOTES: 06/05/18 TAKING SONATA 10 MG CAPSULE 1 CAPSULE AT BEDTIME NEEDED ORALLY AT BEDTIME PRN INSOMNIA, NOTES: 06/05/18 TAKING MELATONIN 5 MG TABLET 1 TABLET AT BEDTIME NEEDED WITH FOOD ORALLY ONCE A DAY, NOTES: 06/05/18 TAKING PRAVASTATIN SODIUM 20 MG TABLET 1 TABLET ORALLY AT BEDTIME, NOTES: 06/05/18 TAKING ASPIRIN 81 81 MG TABLET CHEWABLE 1 TABLET ORALLY ONCE A DAY, NOTES: 06/02/18 2100 MEDICATION LIST REVIEWED AND RECONCILED WITH THE PATIENT PAST MEDICAL HISTORY IMPAIRED FASTING GLUCOSE HYPERLIPIDEMIA 2B HYPERTENSION HISTORY OF LEFT NEPHROLITHIASIS X1 STATUS POST LASER LITHOTRIPSY BY DR. FULTON OF 2009-10/2010 24 URINE ONLY WITH MILDY ELEVATED OXALATE OBESITY LELO. SEVERE ON CPAP LUMBAR SPONDYLSOSIS-L3/4 DIFFUSE BULGE, AP 8; L4/5 BROAD CENTRAL HNP C L NF NARROWING; L5/1 R 7 MM FACET CYST C MILD R NF NARROWING BY 09/2017 MRI HISTORY OF TRUNK/FACIAL AK'S ASYMPTOMATIC CHOLELITHIASIS-SEEN BY SEPTEMBER 2008 CT UMBILICAL HERNIA-SEEN BY SEPTEMBER 2008 CT INSOMNIA UGI BLEED SECONDARY TO DUODENAL ULCER (CAUSED BY PRECEDENT AUGMENTIN/FLAGYL, ASPIRIN, NSAID AND ETHOH USE), REQUIRED 6 UNITS PRBCS C ZEINAB HEMOGLOBIN 6.7, TREATED MAY 19, 2011 WITH THERMAL THERAPY-[facility]/08/2011 EGD-HIATAL HERNIA-[facility] CERVICAL DJD-11/2011 MRI C C3-7 SPONDYLOSIS MID UPPER BACK BASOSQUAMOUS CARCINOMA EXCISED 02/2012-[facility], MID CHEST SCC, [id number] 03/2013-[facility] HISTORY OF SEVERE MITRAL VALVE REGURGITATION STATUS POST MINIMALLY INVASIVE RIGHT THORACOTOMY WITH MEDTRONIC 3-D ANGIOPLASTY RING PLACEMENT, AND LEFT ATRIAL CRYOABLATION FOR ATRIAL FIBRILLATION-06/19/[id number]. WANDA'S ATRIAL FLUTTER-S/P R ATRIAL ABLATION 10/2012-DR. PEREZ// PATRICK BLUM MD R UPPER BACK BCC-EXCISED 10/2015-[facility] FACIAL AKS MILD DILATED AORTIC ROOT, NORMAL MVR S MS/MR BY 04/2016 TTE ANTECOL ATRIAL FIBRILLATION, PAROXYSMAL-S/P CARDIOVESION 04/02/16 [facility] [place] AND 02/16/17 LOADED C DIGOXIN IV/PO R LATTER-DAY 4 MM SCC IN-SITU EXCISED 05/2017-[facility] PART OF MIDAS STUDY SINCE 1993 ([facility])-IMPACTS OF AGING ALLERGIES LEVAQUIN: TENDONS TIGHTEN: ALLERGY MOBIC: HIVES: ALLERGY CEPHALOSPORINS: SEVERE: ALLERGY CLINDAMYCIN HCL: PERFORATED INTESTINES: ALLERGY FLAGYL: ? DUODENAL ULCER: SIDE EFFECTS CECLOR: HIVES: SIDE EFFECTS SURGICAL HISTORY COLONOSCOPY-NORMAL APRIL 2003 L THR-FISH 01/23/2014 UMBILICAL HERNIA REPAIR-[facility] DR. PURCELL 04/28/15 [facility]-DR. AHMADI-MENDOZA ORTHO 03/12/17 HEART LOOP [id number]. ED PEREZ 06/12/17 LEFT CATARACT -[facility] -[facility] 11/29/17 APPENDECTOMY 05/1958 LASER EYE SURGERY 03/1994 LEFT WRIST SURGERY 02/2004 LEFT KIDNEY LITHTRIPSY 12/2009 NEGRITO 04/2012 EGD X3 05/2011 MITRAL VALAVE REPAIR AND CYRO ABLATION 06/2012 RIGHT HIP REPLACEMET 03/2017 RIGHT CATARACT 02/2018 LEFT CATARACT 11/29/17 FAMILY HISTORY FATHER: , DIAGNOSED WITH HEART DISEASE MOTHER: , DIAGNOSED WITH STROKE, OTHER SIBLINGS: ALIVE 1 BROTHER(S) - HEALTHY. 1 SON(S) - HEALTHY. MOTHER - DEMENTIA, COPDFATHER AND BROTHER-OLDER- DX ESSENTIAL TREMORS. SOCIAL HISTORY GENERAL: TOBACCO USE ARE YOU A:NONSMOKER ARE YOU A:FORMER SMOKER HOW LONG HAS IT BEEN SINCE YOU LAST SMOKED?> 10 YEARS BMI CARE GOAL FOLLOW-UP ABOVE NORMAL BMI FOLLOW-UPGIVING ENCOURAGEMENT TO EXERCISE ALCOHOL SCREENING DID YOU HAVE A DRINK CONTAINING ALCOHOL IN THE PAST YEAR?YES HOW OFTEN DID YOU HAVE SIX OR MORE DRINKS ON ONE OCCASION IN THE PAST YEAR?NEVER (0 POINTS) HOW MANY DRINKS DID YOU HAVE ON A TYPICAL DAY WHEN YOU WERE DRINKING IN THE PAST YEAR?3 OR 4 (1 POINT) HOW OFTEN DID YOU HAVE A DRINK CONTAINING ALCOHOL IN THE PAST YEAR?TWO TO THREE TIMES PER WEEK (3 POINTS) POINTS4 INTERPRETATIONPOSITIVE RECREATIONAL DRUG USE DRUG USE?NO CAFFEINE 2-5/DAY. 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 LANGUAGE LANGUAGES SPOKEN:SERBIAN LEARNING BARRIERS / SPECIAL NEEDS CHANGE FROM LAST VISIT?NO BARRIERS TO LEARNING?NO HEARING IMPAIRED?NO VISION IMPAIRED?NO COGNITIVELY IMPAIRED?NO READINESS TO LEARN?YES LEARNING PREFERENCES?NO LEARNING CAPABILITIES PRESENT?YES EMOTIONAL BARRIERS?NO DOMESTIC VIOLENCE DO YOU FEEL SAFE IN YOUR ENVIRONMENT?YES OCCUPATION: RETIRED. DIET: REGULAR. EXERCISE: NO REGULAR EXERCISE. MARITAL STATUS: . PAIN CLINIC PFS, CLERGY, PUBLIC HEALTH REFERRALS HAS THE PATIENT BEEN EDUCATED REGARDING HIS/HER PLAN OF CARE?YES HAS THE PATIENT BEEN EDUCATED REGARDING PAIN, THE RISK FOR PAIN, THE IMPORTANCE OF EFFECTIVE PAIN MANAGEMENT, AND THE PAIN ASSESSMENT PROCESS?YES ADVANCE DIRECTIVE ADVANCE DIRECTIVE DISCUSSED WITH PATIENT:YES HCP - ERICK CARDENAS () REVIEWED WITH PATIENT 02/14/18 0938REVIEWED WITH PATIENT 03/27 18 1202 JS REVIEWED WITH PATIENT 05/14/18 1050 LAS. HOSPITALIZATION/MAJOR DIAGNOSTIC PROCEDURE OD AMAUROSIS FUGAX X 5 MIN-+ ASA [address] INTERIANO, CT HEAD NAD, CAROTID US B ICA <50%, NORMAL TELEMTRY, STABLE TTE 05/12-07/26 REVIEW OF SYSTEMS REVIEWED BY: PROVIDER: . CONSTITUTIONAL: ANY CHANGE IN YOUR MEDICAL CONDITION? NO . CHILLS NO . FEVER NO . INFECTION: DO YOU HAVE NEW INFECTIONS? NO . DO YOU HAVE HISTORY OF MRSA? NO . MUSCULOSKELETAL: ANY NEW PATTERNS OF PAIN OR NUMBNESS? NO . GASTROENTEROLOGY: ANY NEW CHANGE IN BOWEL CONTROL? NO . GENITOURINARY: ANY NEW CHANGE IN BLADDER CONTROL? NO . IS THERE A CHANCE YOU COULD BE ? NO . HEMATOLOGY/LYMPH: DO YOU TAKE ANY BLOOD THINNERS? (FOR EXAMPLE- COUMADIN, PLAVIX, AGGRENOX, PLATEL, PRADAXA, OR XARELTO) YES, ELAQUIS 06/03/18 . WHEN WAS YOUR LAST DOSE? DATE: TIME: . NEUROLOGY: HAVE YOU FALLEN IN THE PAST 12 MONTHS? YES, PRIOR TO LAST VISIT . ANY NEW EXTREMITY NUMBNESS OR WEAKNESS? YESRIGHT LEG NUMBNESS . CARDIOLOGY: DO YOU HAVE A PACEMAKER OR DEFIBRILLATOR? NO . RESPIRATORY: HAVE YOU BEEN SICK IN THE PAST WEEK? NO . FEVER NO . FLU LIKE SYMPTOMS? NO . COUGH NO . INTEGUMENTARY: DO YOU HAVE ANY RASHES OR OPEN SORES? NO . ALLERGIC/IMMUNO: ARE YOU ALLERGIC TO IV DYE? NO . ANY NEW ALLERGIES? NO . PSYCHIATRIC: DO YOU HAVE THOUGHTS OF HURTING YOURSELF OR SOMEONE ELSE? NO . ARE YOU ABUSED, NEGLECTED, OR IN AN UNSAFE ENVIRONMENT? NO . ENDOCRINOLOGY: ARE YOU DIABETIC? NO . OTHER: DO YOU NEED ANY PRESCRIPTIONS? NO . IF YES, PLEASE LIST: ____ . ANY NEW PROBLEMS WITH YOUR MEDICATIONS? NO . WHEN DID YOU LAST EAT? 06/05/18 1800 . WHEN DID YOU LAST DRINK? 06/06/18 0800 . WHAT DID YOU LAST DRINK? WATER . NAME OF PERSON DRIVING YOU HOME? ARNALDO . DO YOU HAVE ANY OTHER QUESTIONS OR CONCERNS NO . VITAL SIGNS WT 249 LBS, HT 70 IN, BMI 35.72 INDEX, BP 116/67 MM HG, HR 61 /MIN, RR 18 /MIN, TEMP 97.1 F, OXYGEN SAT % 95%, NA INITIALS SC 13:22, REVIEWED BY: EM. ASSESSMENTS INTERVERTEBRAL DISC DISORDER WITH RADICULOPATHY OF LUMBAR REGION - M51.16 (PRIMARY) PROCEDURES PN LUMBAR TRANSFORAMINAL BLOCKS PRE PROCEDURE DIAGNOSIS LUMBAR DISC DISORDER WITH RADICULOPATHY POST PROCEDURE DIAGNOSIS LUMBAR DISC DISORDER WITH RADICULOPATHY PROCEDURE RIGHT L4 AND RIGHT L5 TRANSFORAMINAL EPIDURAL STEROID INJECTION UNDER FLUOROSCOPIC GUIDANCE SURGEON DR BRITTNEY AGUILERA SPACE SCHEDULER NONE ANESTHESIA LOCAL PRE PROCEDURE NOTE PATIENT WITH HISTORY OF CHRONIC LOW BACK PAIN. I EVALUATE THE PATIENT AND REVIEWED THE CHART. I WENT OVER THE RISKS, ALTERNATIVES, AND BENEFITS ASSOCIATED WITH THIS PROCEDURE. THE PATIENT WOULD LIKE TO PROCEED AND GIVE CONSENT TO PERFORMED THE PROCEDURE. THE PATIENT DENIES UNEXPLAINABLE WEIGHT LOSS, FEVER, CHILLS, OR CHANGES IN URINARY OR BOWEL CONTROL DESCRIPTION OF PROCEDURE THE PATIENT WAS BROUGHT TO THE PROCEDURE ROOM AND PLACED IN THE PRONE POSITION. THE LUMBOSACRAL AREA WAS CLEANED WITH BETADINE SOLUTION AND DRAPED ASEPTICALLY. THE PROCEDURE WAS DONE UNDER STERILE CONDITIONS. I CHECKED LATERALITY AND THE LEVEL WHERE THE PROCEDURE WAS GOING TO BE PERFORMED WITH THE PATIENT AND THE SUPPORTING STAFF AT THE MOMENT OF THE TIME OUT IN THE PROCEDURE ROOM. UNDER FLUOROSCOPIC GUIDANCE, TARGETS WERE SELECTED AT THE RIGHT TRANSFORAMINAL OPENING OF L4 AND L5. TARGET POINT WAS SELECTED AFTER LATERAL ROTATION AND TILT OF THE MAGNIFIER OF THE C-ARM. LIDOCAINE 0.5% WAS USED TO NUMB THE SKIN AND THE SUBCUTANEOUS TISSUE BELOW IT. AN EPIMED INTRODUCER 18-GAUGE WAS ADVANCED UNTIL WE WENT CLOSE TO THE SELECTED TRANSFORAMINAL OPENINGS. AFTER PROPER POSITION OF THE NEEDLES WAS ACHIEVED, A 22-GAUGE EPIMED NEEDLE WAS PLACED INSIDE OF THE INTRODUCER AND ADVANCED TO THE TRANSFORAMINAL OPENING OF THE SELECTED SITES. WHEN PROPER POSITION OF THE NEEDLE WAS ACHIEVED, ISOVUE M DYE 30%, 0.25 ML, WAS INJECTED SHOWING ADEQUATE SPREAD OF THE DYE. THIS WAS DONE UNDER DIGITAL SUBTRACTION AND ANGIOGRAPHY. THERE WAS NO VASCULAR UPDATE. THEN, A SOLUTION OF 2 ML OF BUPIVACAINE 0.25% AND DEXAMETHASONE 10 MG WAS INJECTED AT EACH SITE. THERE WAS NO EVIDENCE OF BLOOD, PARESTHESIA OR CEREBROSPINAL FLUID DURING THE PROCEDURE. THE PATIENT WAS SENT TO THE RECOVERY ROOM. THE PATIENT WAS MOVING THE EXTREMITIES AND DOING WELL. THERE WAS NO COMPLICATION DURING THE PROCEDURE. FLUOROSCOPY TIME WAS 109 SECONDS POST PROCEDURE NOTE THE PROCEDURE DONE WAS DISCUSSED WITH THE PATIENT. THE PATIENT WILL BE SEEN IN A FOLLOW UP IN THE NEXT FEW WEEKS. INSTRUCTIONS WERE GIVEN, QUESTIONS WERE ANSWERED, AND THE PATIENT EXPRESSED UNDERSTANDING AND AGREES WITH THE PLAN. I, YSABEL PACHECO, DOCUMENTED THE ABOVE INFORMATION ACTING A SCRIBE FOR DR. AGUILERA. I HAVE REVIEWED THE ABOVE DOCUMENT, WRITTEN BY YSABEL LUX AND I VERIFY THAT IT IS ACCURATE. DIAGNOSTIC IMAGING [facility] FACET BLOCK (PAIN)[id number] PROCEDURE CODES 6045F RADXPS IN END [id number] PXD 65124 INJ FORAMEN EPIDURAL L/S, MODIFIERS: [place] [address] INJ FORAMEN EPIDURAL ADD-ON, MODIFIERS: RT DISPOSITION & COMMUNICATION FOLLOW UP 3 WEEKS ELECTRONICALLY SIGNED BY BRITTNEY AGUILERA MD, MD ON 06/15/2018 AT 06:57 PM EST DISCLAIMER : THIS IS A VISIT SUMMARY EXTRACTED FROM THE [employer] CHART. IT IS NOT A COPY OF THE [employer] PROGRESS NOTE. MTDD
== END ==
LOC: M PAIN 13:00
PROVIDERS: ATTEND Anesthesiology
DX: G89.29 Other chronic pain (principal); M51.16 Intervertebral disc disorders with radiculopathy, lumbar region; I10 Essential (primary) hypertension; R73.01 Impaired fasting glucose; E78.5 Hyperlipidemia, unspecified; G47.33 Obstructive sleep apnea (adult) (pediatric); Z79.01 Long term (current) use of anticoagulants; Z79.84 Long term (current) use of oral hypoglycemic drugs; Z79.82 Long term (current) use of aspirin; Z79.899 Other long term (current) drug therapy; Z88.1 Allergy status to other antibiotic agents; Z88.5 Allergy status to narcotic agent; Z88.8 Allergy status to other drugs, medicaments and biological substances; Z86.79 Personal history of other diseases of the circulatory system
CPT/HCPCS: 64483; 64484; J1100; Q9967

== ENCOUNTER → 2018-06-07 | Outpatient (CLI) | payer MEDICARE, BC, OTHER ==
[~2018-06-07] MED LIST changes: -BUPIVACAINE HCL 0.25% 30 ML VIAL As Ordered ONE; -ISOVUE-M 300 61% 15ML VIAL (Q9967) As Ordered ONE; -LIDOCAINE 1% SDV INJ 30 ML VIAL As Ordered ONE; -dexameTHASONE 10 MG/1 ML VIAL PRES.FREE (J1100) As Ordered ONE; -diazePAM 5 MG TAB As Ordered ONE; -diphenhydrAMINE 25 MG CAP As Ordered ONE; -oxyCODONE 5MG TAB As Ordered ONE
--- NOTE | 2018-06-07 14:03 | REP ---
MRA Brain without contrast History: Amaurosis fugax Comparison: 02/10/2013 3-D [id number] MR angiography was performed at the level of the eagle of [place]. There is no aneurysm or arteriovenous malformation. Mild atherosclerotic disease involves the cavernous and supraclinoid internal carotid arteries. Major intracranial vessels are patent. The left vertebral artery is dominant. Impression: 1. There is no aneurysm or arteriovenous malformation. 2. Atherosclerotic disease as described above. Electronically Signed by Marky Rojo MD 06/07/2018 01:53 P
--- NOTE | 2018-06-07 15:04 | REP ---
MR BRAIN WITHOUT CONTRAST: HISTORY: Amaurosis fugax. COMPARISON: MR 02/10/[address] 05/12/2018. Scattered punctate areas of increased signal intensity on T2-weighted images are present in the periventricular and subcortical white matter. This represents small vessel ischemic disease. There is no intraparenchymal hemorrhage, infarct, mass or midline shift. The ventricular system and cortical sulci are dilated consistent with minimal volume loss. There is no extracerebral collection. Mucosal thickening is present in the ethmoid and right frontal sinuses. IMPRESSION: 1. Minimal small vessel ischemic disease. 2. Minimal volume loss. Electronically Signed by Marky Rojo MD 06/07/2018 03:24 P
== END ==
LOC: M PLARAD 11:46
PROVIDERS: ATTEND Family Medicine
DX: G45.3 Amaurosis fugax (principal); I67.2 Cerebral atherosclerosis

== ENCOUNTER → 2018-07-03 | Outpatient (REF) | payer MEDICARE, OTHER ==
[2018-07-03 12:42] LABS: APPEARANCE, URINE CLEAR (CLEAR); BACTERIA, URINE AUTO NEGATIVE (NEGATIVE); BILIRUBIN, URINE AUTO NEGATIVE (NEGATIVE); BLOOD, URINE BLOOD NEGATIVE (NEGATIVE); COLOR, URINE YELLOW (YELLOW); GLUCOSE, URINE (UA) AUTO NEGATIVE (NEGATIVE); KETONE, URINE AUTO NEGATIVE (NEGATIVE); LEUKOCYTE ESTERASE, URINE AUTO NEGATIVE (NEGATIVE); MUCUS, URINE SMALL (NEGATIVE); NITRITE, URINE AUTO NEGATIVE (NEGATIVE); PROTEIN, URINE AUTO NEGATIVE (NEGATIVE); RBC, URINE AUTO 2 /HPF (0-3); SPECIFIC GRAVITY URINE AUTO 1.018 (1.002-1.035); SQUAMOUS EPITHELIAL CELL UR AU 0 /HPF (0-6); UROBILINOGEN, URINE AUTO 0.2 mg/dL (0.0-2.0); WBC, URINE AUTO 1 /HPF (0-3)
== END ==
LOC: M LABDRAW1 10:05
PROVIDERS: ATTEND Nurse Practitioner
DX: N40.1 Benign prostatic hyperplasia with lower urinary tract symptoms (principal)

== ENCOUNTER → 2018-07-09 | Outpatient (CLI) | payer MEDICARE, OTHER ==
[~2018-07-09] MED LIST changes: -/PANT40TA OR; -/SUCR1TA OR; +PROT1TAB2 OR; +SUCR1TAB56 OR
--- NOTE | 2018-07-20 00:26 | ECWPNPC ---
PATIENT NAME: TRAVIS CARDENAS : 1950 GENDER: MALE VISIT DATE: 07/09/2018 DISCHARGE DATE: 07/09/18 1148 VISIT LOCKED DATE TIME: PHYSICIAN: ELAINE DAVILA PHYSICIAN PAGER NO: [phone] RESOURCE: ELAINE DAVILA REASON FOR APPOINTMENT 1. POST PROC HISTORY OF PRESENT ILLNESS HISTORY OF PRESENT ILLNESS: HERE FOR POST PROCEDURE F/U.HAD RIGHT L4/5 TRANSFORAMINAL LESI ON 06/06/18.REPORTING SIGNIFICANT REDUCTION IN PAIN FOR 6 WEEKS AND PAIN IS GRADUALLY RETURNING.RATING PAIN VAS 5/10.DESCRIBES LOW BACK PAIN WITH RIGHT POSTERIOR LEG PAIN.DESCRIBES PAIN INTERMITTENT,SHARP AND ACHING. PAIN THE PATIENT DESCRIBES THE PAIN... FALL RISK SCREENING: SCREENING :NO FALLS REPORTED IN THE LAST YEAR CURRENT MEDICATIONS TAKING VITAMIN D (CHOLECALCIFEROL) 1000 UNIT TABLET 2 TABLET ORALLY ONCE A DAY TAKING PROTOPIC 0.1 % OINTMENT 1 APPLICATION TO AFFECTED AREA EXTERNALLY BID X 7 DAYS TO ECZEMA PLAQUES TAKING MAGNESIUM 200 MG TABLET 1 TABLET WITH A MEAL ORALLY TWICE A DAY TAKING TRANDOLAPRIL 1 MG TABLET 1 TABLET ORALLY AT BEDTIME TAKING METFORMIN HCL ER 500 MG TABLET EXTENDED RELEASE 24 HOUR 1 TABLET WITH EVENING MEAL ORALLY AC DINNER TAKING PANTOPRAZOLE SODIUM 40 MG TABLET DELAYED RELEASE 1 TABLET ORALLY EVERY MORNING TAKING BISOPROLOL FUMARATE 5 MG TABLET 1 TABLET ORALLY ONCE A DAY TAKING APIXABAN 5 MG TABLET 1 TAB ORALLY BID TAKING MULTIVITAMINS OTC TABLET 1 TABLET ORALLY ONCE A DAY TAKING AREDS _ CAPSULE 1 CAPLSULE ORALLY TWICE A DAY TAKING CURCUMIN TABLET 2 CAP ORAL DAILY TAKING AMOXICILLIN 500 MG CAPSULE 4 CAPSULE ORALLY DIRECTED, NOTES: NONE RECENT - BEFORE DENTIST APPOINTMENTS TAKING VOLTAREN 1 % GEL ONE APPLICATION TRANSDERMAL TWICE A DAY TO BACK AND HAMSTRINGS. TAKING GABAPENTIN 600 MG TABLET 1 CAPSULE ORALLY THREE TIMES A DAY TAKING TAMSULOSIN HCL 0.4 MG CAPSULE 2 CAPSULES ORALLY AT BEDTIME TAKING MELATONIN 5 MG TABLET 1 TABLET AT BEDTIME NEEDED WITH FOOD ORALLY ONCE A DAY TAKING PRAVASTATIN SODIUM 20 MG TABLET 1 TABLET ORALLY AT BEDTIME TAKING ASPIRIN 81 81 MG TABLET CHEWABLE 1 TABLET ORALLY ONCE A DAY TAKING ZALEPLON 10 MG CAPSULE 1 CAPSULE AT BEDTIME NEEDED ORALLY ONCE A DAY NOT-TAKING ZALEPLON 10 MG CAPSULE 1 CAPSULE AT BEDTIME NEEDED ORALLY ONCE A DAY MEDICATION LIST REVIEWED AND RECONCILED WITH THE PATIENT PAST MEDICAL HISTORY IMPAIRED FASTING GLUCOSE HYPERLIPIDEMIA 2B HYPERTENSION HISTORY OF LEFT NEPHROLITHIASIS X1 STATUS POST LASER LITHOTRIPSY BY DR. FULTON OF 2009-10/2010 24 URINE ONLY WITH MILDY ELEVATED OXALATE OBESITY LELO. SEVERE ON CPAP LUMBAR SPONDYLSOSIS-L3/4 DIFFUSE BULGE, AP 8; L4/5 BROAD CENTRAL HNP C L NF NARROWING; L5/1 R 7 MM FACET CYST C MILD R NF NARROWING BY 09/2017 MRI HISTORY OF TRUNK/FACIAL AK'S ASYMPTOMATIC CHOLELITHIASIS-SEEN BY SEPTEMBER 2008 CT UMBILICAL HERNIA-SEEN BY SEPTEMBER 2008 CT INSOMNIA UGI BLEED SECONDARY TO DUODENAL ULCER (CAUSED BY PRECEDENT AUGMENTIN/FLAGYL, ASPIRIN, NSAID AND ETHOH USE), REQUIRED 6 UNITS PRBCS C ZEINAB HEMOGLOBIN 6.7, TREATED MAY 19, 2011 WITH THERMAL THERAPY-[facility]/08/2011 EGD-HIATAL HERNIA-[facility] CERVICAL DJD-11/2011 MRI C C3-7 SPONDYLOSIS MID UPPER BACK BASOSQUAMOUS CARCINOMA EXCISED 02/2012-[facility], MID CHEST SCC, [id number] 03/2013-[facility] HISTORY OF SEVERE MITRAL VALVE REGURGITATION STATUS POST MINIMALLY INVASIVE RIGHT THORACOTOMY WITH MEDTRONIC 3-D ANGIOPLASTY RING PLACEMENT, AND LEFT ATRIAL CRYOABLATION FOR ATRIAL FIBRILLATION-06/19/[id number]-WEBárbara WANDA'S ATRIAL FLUTTER-S/P R ATRIAL ABLATION 10/2012-DR. PEREZ// PATRICK BLUM MD R UPPER BACK BCC-EXCISED 10/2015-[facility] FACIAL AKS MILD DILATED AORTIC ROOT, NORMAL MVR S MS/MR BY 04/2016 TTE ANTECOL ATRIAL FIBRILLATION, PAROXYSMAL-S/P CARDIOVESION 04/02/16 [facility] [place] [place] AND 02/16/17 LOADED C DIGOXIN IV/PO R HINDU 4 MM SCC IN-SITU EXCISED 05/2017-[facility]AN PART OF MIDAS STUDY SINCE 1993 ([facility])-IMPACTS OF AGING ALLERGIES LEVAQUIN: TENDONS TIGHTEN - ALLERGY MOBIC: HIVES - ALLERGY CEPHALOSPORINS: SEVERE - ALLERGY CLINDAMYCIN HCL: PERFORATED INTESTINES - ALLERGY FLAGYL: ? DUODENAL ULCER - SIDE EFFECTS CECLOR: HIVES - SIDE EFFECTS SURGICAL HISTORY COLONOSCOPY-NORMAL APRIL 2003 L THR-FISH 01/23/2014 UMBILICAL HERNIA REPAIR-[facility] DR. PURCELL 04/28/15 [facility]-DR. AHMADI-MENDOZA ORTHO 03/12/17 HEART LOOP [id number]. ED PEREZ 06/12/17 LEFT CATARACT -[facility] 11/29/17 APPENDECTOMY 05/1958 LASER EYE SURGERY 03/1994 LEFT WRIST SURGERY 02/2004 LEFT KIDNEY LITHTRIPSY 12/2009 NEGRITO 04/2012 EGD X3 05/2011 MITRAL VALAVE REPAIR AND CYRO ABLATION 06/2012 RIGHT HIP REPLACEMET 03/2017 RIGHT CATARACT 02/2018 LEFT CATARACT 11/29/17 FAMILY HISTORY FATHER: , DIAGNOSED WITH HEART DISEASE MOTHER: , STROKE, OTHER SIBLINGS: ALIVE 1 BROTHER(S) - HEALTHY. 1 SON(S) - HEALTHY. MOTHER - DEMENTIA, COPD\NFATHER AND BROTHER-OLDER- DX ESSENTIAL TREMORS. SOCIAL HISTORY GENERAL: TOBACCO USE ARE YOU A:NONSMOKER HOW LONG HAS IT BEEN SINCE YOU LAST SMOKED?> 10 YEARS BMI CARE GOAL FOLLOW-UP ABOVE NORMAL BMI FOLLOW-UPGIVING ENCOURAGEMENT TO EXERCISE ALCOHOL SCREENING DID YOU HAVE A DRINK CONTAINING ALCOHOL IN THE PAST YEAR?YES HOW OFTEN DID YOU HAVE A DRINK CONTAINING ALCOHOL IN THE PAST YEAR?TWO TO THREE TIMES PER WEEK (3 POINTS) HOW MANY DRINKS DID YOU HAVE ON A TYPICAL DAY WHEN YOU WERE DRINKING IN THE PAST YEAR?3 OR 4 (1 POINT) HOW OFTEN DID YOU HAVE SIX OR MORE DRINKS ON ONE OCCASION IN THE PAST YEAR?NEVER (0 POINTS) POINTS4 INTERPRETATIONPOSITIVE RECREATIONAL DRUG USE DRUG USE?NO CAFFEINE 2-5/DAY. SEXUAL HX HAD SEX IN THE LAST 12 MONTHS (VAGINAL, ORAL, OR ANAL)?YES WITHWOMEN ONLY USE PROTECTION?NO HAVE YOU EVER HAD AN STD?NO HIV / HEP-C SCREENING HIV TEST OFFERED TO PATIENT:YES DATE OFFERED:06/20/2016 TEST ACCEPTED:NO REASON:PATIENT DECLINED HEP-C TEST OFFERED TO PATIENT:YES DATE OFFERED:06/20/2016 TEST ACCEPTED:NO REASON:PATIENT DECLINED SABIANIST SABIANIST NO TENRIISM BELIEFS THAT WOULD IMPACT HEALTH CARE. LANGUAGE LANGUAGES SPOKEN:BURUNDIAN LEARNING BARRIERS / SPECIAL NEEDS CHANGE FROM LAST VISIT?NO BARRIERS TO LEARNING?NO HEARING IMPAIRED?NO VISION IMPAIRED?NO COGNITIVELY IMPAIRED?NO READINESS TO LEARN?YES LEARNING PREFERENCES?NO LEARNING CAPABILITIES PRESENT?YES EMOTIONAL BARRIERS?NO DOMESTIC VIOLENCE DO YOU FEEL SAFE IN YOUR ENVIRONMENT?YES OCCUPATION: RETIRED. DIET: REGULAR. EXERCISE: NO REGULAR EXERCISE. MARITAL STATUS: . PAIN CLINIC PFS, CLERGY, PUBLIC HEALTH REFERRALS HAS THE PATIENT BEEN EDUCATED REGARDING HIS/HER PLAN OF CARE?YES HAS THE PATIENT BEEN EDUCATED REGARDING PAIN, THE RISK FOR PAIN, THE IMPORTANCE OF EFFECTIVE PAIN MANAGEMENT, AND THE PAIN ASSESSMENT PROCESS?YES ADVANCE DIRECTIVE ADVANCE DIRECTIVE DISCUSSED WITH PATIENT:YES HCP - ERICK CARDENAS () REVIEWED WITH PATIENT 02/14/18 0938REVIEWED WITH PATIENT 03/27 18 1202 JS REVIEWED WITH PATIENT 05/14/18 1050 LAS. HOSPITALIZATION/MAJOR DIAGNOSTIC PROCEDURE OD AMAUROSIS FUGAX X 5 MIN-+ ASA [address] INTERIANO, CT HEAD NAD, CAROTID US B ICA <50%, NORMAL TELEMTRY, STABLE TTE 05/12-07/26 REVIEW OF SYSTEMS REVIEWED BY: PROVIDER: ELAINE CANTU . CONSTITUTIONAL: ANY CHANGE IN YOUR MEDICAL CONDITION? NO . CHILLS NO . FEVER NO . INFECTION: DO YOU HAVE NEW INFECTIONS? NO . DO YOU HAVE HISTORY OF MRSA? NO . MUSCULOSKELETAL: ANY NEW PATTERNS OF PAIN OR NUMBNESS? YES, 10-15% PAIN LEVEL HAS IMPROVED . GASTROENTEROLOGY: ANY NEW CHANGE IN BOWEL CONTROL? NO . GENITOURINARY: ANY NEW CHANGE IN BLADDER CONTROL? NO . IS THERE A CHANCE YOU COULD BE ? NO . HEMATOLOGY/LYMPH: DO YOU TAKE ANY BLOOD THINNERS? (FOR EXAMPLE- COUMADIN, PLAVIX, AGGRENOX, PLATEL, PRADAXA, OR XARELTO) YES, ELIQUIS . WHEN WAS YOUR LAST DOSE? DATE: TIME: . NEUROLOGY: HAVE YOU FALLEN IN THE PAST 12 MONTHS? YES, PRIOR TO LAST VISIT . ANY NEW EXTREMITY NUMBNESS OR WEAKNESS? NO . CARDIOLOGY: DO YOU HAVE A PACEMAKER OR DEFIBRILLATOR? NO . RESPIRATORY: HAVE YOU BEEN SICK IN THE PAST WEEK? NO . FEVER NO . FLU LIKE SYMPTOMS? NO . COUGH NO . INTEGUMENTARY: DO YOU HAVE ANY RASHES OR OPEN SORES? NO . ALLERGIC/IMMUNO: ARE YOU ALLERGIC TO IV DYE? NO . ANY NEW ALLERGIES? NO . PSYCHIATRIC: DO YOU HAVE THOUGHTS OF HURTING YOURSELF OR SOMEONE ELSE? NO . ARE YOU ABUSED, NEGLECTED, OR IN AN UNSAFE ENVIRONMENT? NO . ENDOCRINOLOGY: ARE YOU DIABETIC? NO . OTHER: DO YOU NEED ANY PRESCRIPTIONS? NO . IF YES, PLEASE LIST: ____ . ANY NEW PROBLEMS WITH YOUR MEDICATIONS? NO . WHEN DID YOU LAST EAT? ____ . WHEN DID YOU LAST DRINK? ____ . WHAT DID YOU LAST DRINK? ____ . NAME OF PERSON DRIVING YOU HOME? ____ . DO YOU HAVE ANY OTHER QUESTIONS OR CONCERNS NO . VITAL SIGNS WT 254.8 LBS, HT 70 IN, BMI 36.56 INDEX, BP 111/69 MM HG, HR 66 /MIN, RR 18 /MIN, TEMP 98.3 F, OXYGEN SAT % 96%, NA INITIALS AW 1104, REVIEWED BY: EM. EXAMINATION GENERAL EXAMINATION: GENERAL APPEARANCE:AWAKE,ALERT ,PLEAASANT . PSYCHAFFECT NORMAL . NECK:TRACHEA MIDLINE. NO CERVICAL OR SUPRACLAVICULAR LYMPHADENOPATHY NOTED . LUNGS:LUNG ALDRICH ARE CLEAR TO AUSCULTATION BILATERALLY. GOOD MOVEMENT OF AIR . HEART:S1, S2 IN A REGULAR RATE AND RHYTHM. NO SIGNIFICANT MURMURS, RUBS OR GALLOPS NOTED . MUSCULOSKELETAL:WEAKNESS OVER RIGHT LEG.LEFT LEG IS 5/5 MST. DIAGNOSTIC TESTS REVIEWEDMRI L/S [id number] . ASSESSMENTS LUMBOSACRAL RADICULOPATHY - M54.17 (PRIMARY) FACET ARTHROPATHY, LUMBOSACRAL - M47.817 TREATMENT LUMBOSACRAL RADICULOPATHY NOTES: RIGHT L4/5 TRANSFORAMINAL EPIDURAL STEROID INJECTIONSTOP ELOQUIS 3 DAYS PRE AND RESTART 3 DAYS POST. PREVENTIVE MEDICINE PAIN CLINIC TEACHING: PROCEDURE TEACHING PT GIVEN WRITTEN AND VERBAL PRE-PROCEDURE INSTRUCTIONS. PT VERBALIZES UNDERSTANDING OF ALL INSTRUCTIONS. SHIRA ABRAHAM 07/09/2018 11:48:44 AM > . PROCEDURE CODES FA211 ESTABILISHED PATIENT [facility] FACILITY CHARGE DISPOSITION & COMMUNICATION FOLLOW UP POST (REASON: RIGHT L4/5 TRANSFORAMINAL EPIDURAL STEROID INJECTION) ELECTRONICALLY SIGNED BY PEPE FABIAN ON 07/19/2018 AT 04:12 PM EDT DISCLAIMER : THIS IS A VISIT SUMMARY EXTRACTED FROM THE [facility] CHART. IT IS NOT A COPY OF THE [facility] PROGRESS NOTE. REGINA
== END ==
LOC: M PAIN 10:45
PROVIDERS: ATTEND Nurse Practitioner Family
DX: M54.17 Radiculopathy, lumbosacral region (principal); M47.817 Spondylosis without myelopathy or radiculopathy, lumbosacral region; R73.01 Impaired fasting glucose; E78.5 Hyperlipidemia, unspecified; I10 Essential (primary) hypertension; G47.33 Obstructive sleep apnea (adult) (pediatric); I48.0 Paroxysmal atrial fibrillation; Z79.01 Long term (current) use of anticoagulants; Z79.84 Long term (current) use of oral hypoglycemic drugs; Z79.82 Long term (current) use of aspirin; Z79.899 Other long term (current) drug therapy; Z88.1 Allergy status to other antibiotic agents; Z88.6 Allergy status to analgesic agent; Z88.8 Allergy status to other drugs, medicaments and biological substances; Z87.891 Personal history of nicotine dependence

== ENCOUNTER → 2018-08-06 | Outpatient (CLI) | payer MEDICARE, OTHER ==
[~2018-08-06] MED LIST changes: +BUPIVACAINE HCL 0.25% 30 ML VIAL As Ordered ONE; +COQ-100C5 PO; +FLEC10TA PO; +ISOVUE-M 300 61% 15ML VIAL (Q9967) As Ordered ONE; +LIDOCAINE 1% SDV INJ 30 ML VIAL As Ordered ONE; +dexameTHASONE 10 MG/1 ML VIAL PRES.FREE (J1100) As Ordered ONE; +diazePAM 5 MG TAB As Ordered ONE; +diphenhydrAMINE 25 MG CAP As Ordered ONE; +oxyCODONE 5MG TAB As Ordered ONE
--- NOTE | 2018-08-07 15:01 | REP ---
C-ARM VIEW LUMBAR SPINE: Clinical history: Pain. A C-Arm view lower lumbar spine is performed during injection by Dr. Gallardo. Two needles are seen along the margin of the lower lumbar spine on the right. 1 minute 3 seconds fluoroscopy time utilized. Electronically Signed by Bassam Gonzalez MD 08/09/2018 11:54 A
--- NOTE | 2018-08-19 00:26 | ECWPNPC ---
PATIENT NAME: TRAVIS CARDENAS : 1950 GENDER: MALE VISIT DATE: 08/06/2018 DISCHARGE DATE: 08/06/18 1502 VISIT LOCKED DATE TIME: PHYSICIAN: BRITTNEY AGUILERA MD PHYSICIAN PAGER NO: [phone] RESOURCE: BRITTNEY AGUILERA MD REASON FOR APPOINTMENT 1. RIGHT L4/5 TRANSFORAMINAL EPIDURAL STEROID INJECTION HISTORY OF PRESENT ILLNESS HISTORY OF PRESENT ILLNESS: PAIN THE PATIENT DESCRIBES THE PAIN... FALL RISK SCREENING: SCREENING :NO FALLS REPORTED IN THE LAST YEAR CURRENT MEDICATIONS TAKING VITAMIN D (CHOLECALCIFEROL) 1000 UNIT TABLET 2 TABLET ORALLY ONCE A DAY, NOTES: 729 TAKING PROTOPIC 0.1 % OINTMENT 1 APPLICATION TO AFFECTED AREA EXTERNALLY BID X 7 DAYS TO ECZEMA PLAQUES, NOTES: MONTHS AGO TAKING MAGNESIUM 200 MG TABLET 1 TABLET WITH A MEAL ORALLY TWICE A DAY, NOTES: 729 TAKING TRANDOLAPRIL 1 MG TABLET 1 TABLET ORALLY AT BEDTIME, NOTES: 08/05/182299 TAKING METFORMIN HCL ER 500 MG TABLET EXTENDED RELEASE 24 HOUR 1 TABLET WITH EVENING MEAL ORALLY AC DINNER, NOTES: 08/05/181899 TAKING PANTOPRAZOLE SODIUM 40 MG TABLET DELAYED RELEASE 1 TABLET ORALLY EVERY MORNING, NOTES: 729 TAKING BISOPROLOL FUMARATE 5 MG TABLET 1 TABLET ORALLY ONCE A DAY, NOTES: 729 TAKING APIXABAN 5 MG TABLET 1 TAB ORALLY BID, NOTES: 08/02/18 TAKING MULTIVITAMINS OTC TABLET 1 TABLET ORALLY ONCE A DAY, NOTES: 729 TAKING AREDS _ CAPSULE 1 CAPLSULE ORALLY TWICE A DAY, NOTES: 729 TAKING CURCUMIN TABLET 2 CAP ORAL DAILY, NOTES: 729 TAKING AMOXICILLIN 500 MG CAPSULE 4 CAPSULE ORALLY DIRECTED, NOTES: NONE RECENT - BEFORE DENTIST APPOINTMENTS TAKING VOLTAREN 1 % GEL ONE APPLICATION TRANSDERMAL TWICE A DAY TO BACK AND HAMSTRINGS., NOTES: WEEKS AGO TAKING GABAPENTIN 600 MG TABLET 1 CAPSULE ORALLY THREE TIMES A DAY, NOTES: 729 TAKING TAMSULOSIN HCL 0.4 MG CAPSULE 2 CAPSULES ORALLY AT BEDTIME, NOTES: 08/05/182299 TAKING MELATONIN 5 MG TABLET 1 TABLET AT BEDTIME NEEDED WITH FOOD ORALLY ONCE A DAY, NOTES: 08/05/182199 TAKING PRAVASTATIN SODIUM 20 MG TABLET 1 TABLET ORALLY AT BEDTIME, NOTES: 08/05/182299 TAKING ASPIRIN 81 81 MG TABLET CHEWABLE 1 TABLET ORALLY ONCE A DAY, NOTES: 08/05/182299 TAKING ZALEPLON 10 MG CAPSULE 1 CAPSULE AT BEDTIME NEEDED ORALLY ONCE A DAY, NOTES: 08/05/182299 NOT-TAKING ZALEPLON 10 MG CAPSULE 1 CAPSULE AT BEDTIME NEEDED ORALLY ONCE A DAY MEDICATION LIST REVIEWED AND RECONCILED WITH THE PATIENT PAST MEDICAL HISTORY IMPAIRED FASTING GLUCOSE HYPERLIPIDEMIA 2B HYPERTENSION HISTORY OF LEFT NEPHROLITHIASIS X1 STATUS POST LASER LITHOTRIPSY BY DR. FULTON OF 2009-10/2010 24 URINE ONLY WITH MILDY ELEVATED OXALATE OBESITY LELO. SEVERE ON CPAP LUMBAR SPONDYLSOSIS-L3/4 DIFFUSE BULGE, AP 8; L4/5 BROAD CENTRAL HNP C L NF NARROWING; L5/1 R 7 MM FACET CYST C MILD R NF NARROWING BY 09/2017 MRI HISTORY OF TRUNK/FACIAL AK'S ASYMPTOMATIC CHOLELITHIASIS-SEEN BY SEPTEMBER 2008 CT UMBILICAL HERNIA-SEEN BY SEPTEMBER 2008 CT INSOMNIA UGI BLEED SECONDARY TO DUODENAL ULCER (CAUSED BY PRECEDENT AUGMENTIN/FLAGYL, ASPIRIN, NSAID AND ETHOH USE), REQUIRED 6 UNITS PRBCS C ZEINAB HEMOGLOBIN 6.7, TREATED MAY 19, 2011 WITH THERMAL THERAPY-[facility]/08/2011 EGD-HIATAL HERNIA-[facility] CERVICAL DJD-11/2011 MRI C C3-7 SPONDYLOSIS MID UPPER BACK BASOSQUAMOUS CARCINOMA EXCISED 02/2012-ETHAN, MID CHEST SCC, BI-LTSC-NNDYITV 03/2013-[facility] HISTORY OF SEVERE MITRAL VALVE REGURGITATION STATUS POST MINIMALLY INVASIVE RIGHT THORACOTOMY WITH MEDTRONIC 3-D ANGIOPLASTY RING PLACEMENT, AND LEFT ATRIAL CRYOABLATION FOR ATRIAL FIBRILLATION-06/19/[id number]-SP. WANDA'S ATRIAL FLUTTER-S/P R ATRIAL ABLATION 10/2012-DR. PEREZ// PATRICK BLUM MD R UPPER BACK BCC-EXCISED 10/2015-[facility]AN FACIAL AKS MILD DILATED AORTIC ROOT, NORMAL MVR S MS/MR BY 04/2016 TTE ANTECOL ATRIAL FIBRILLATION, PAROXYSMAL-S/P CARDIOVESION 04/02/16 JOAN AND 02/16/17 LOADED C DIGOXIN IV/PO R GNOSTICISM 4 MM SCC IN-SITU EXCISED 05/2017-[facility] PART OF [place] STUDY SINCE 1993 ([facility])-IMPACTS OF AGING ALLERGIES LEVAQUIN: TENDONS TIGHTEN - ALLERGY MOBIC: HIVES - ALLERGY CEPHALOSPORINS : SEVERE - ALLERGY CLINDAMYCIN HCL: PERFORATED INTESTINES - ALLERGY FLAGYL: ? DUODENAL ULCER - SIDE EFFECTS CECLOR: HIVES - SIDE EFFECTS SURGICAL HISTORY COLONOSCOPY-NORMAL APRIL 2003 L THR-FISH 01/23/2014 UMBILICAL HERNIA [facility]IR[facility] DR[facility] PURCELL 04/28/15 RTH-DR. AHMADI-MENDOZA ORTHO 03/12/17 HEART LOOP JPVONPSW-TYLW-HDDR. ED PEREZ 06/12/17 LEFT CATARACT -[facility] -[facility] 11/29/17 APPENDECTOMY 05/1958 LASER EYE SURGERY 03/1994 LEFT WRIST SURGERY 02/2004 LEFT KIDNEY LITHTRIPSY 12/2009 NEGRITO 04/2012 EGD X3 05/2011 MITRAL VALAVE REPAIR AND CYRO ABLATION 06/2012 RIGHT HIP REPLACEMET 03/2017 RIGHT CATARACT 02/2018 LEFT CATARACT 11/29/17 FAMILY HISTORY FATHER: , DIAGNOSED WITH HEART DISEASE MOTHER: , STROKE, OTHER SIBLINGS: ALIVE 1 BROTHER(S) - HEALTHY. 1 SON(S) - HEALTHY. MOTHER - DEMENTIA, COPD\\NFATHER AND BROTHER-OLDER- DX ESSENTIAL TREMORS. SOCIAL HISTORY GENERAL: TOBACCO USE ARE YOU A:NONSMOKER HOW LONG HAS IT BEEN SINCE YOU LAST SMOKED?> 10 YEARS HIV / HEP-C SCREENING HIV TEST OFFERED TO PATIENT:YES DATE OFFERED:06/20/2016 TEST ACCEPTED:NO REASON:PATIENT DECLINED HEP-C TEST OFFERED TO PATIENT:YES DATE OFFERED:06/20/2016 TEST ACCEPTED:NO REASON:PATIENT DECLINED DIET: REGULAR. LANGUAGE LANGUAGES SPOKEN:MOHAWK DOMESTIC VIOLENCE DO YOU FEEL SAFE IN YOUR ENVIRONMENT?YES BMI CARE GOAL FOLLOW-UP ABOVE NORMAL BMI FOLLOW-UPGIVING ENCOURAGEMENT TO EXERCISE RECREATIONAL DRUG USE DRUG USE?NO EXERCISE: NO REGULAR EXERCISE. LEARNING BARRIERS / SPECIAL NEEDS CHANGE FROM LAST VISIT?NO BARRIERS TO LEARNING?NO HEARING IMPAIRED?NO VISION IMPAIRED?NO COGNITIVELY IMPAIRED?NO READINESS TO LEARN?YES LEARNING PREFERENCES?NO LEARNING CAPABILITIES PRESENT?YES EMOTIONAL BARRIERS?NO PAIN CLINIC PFS, CLERGY, PUBLIC HEALTH REFERRALS HAS THE PATIENT BEEN EDUCATED REGARDING HIS/HER PLAN OF CARE?YES HAS THE PATIENT BEEN EDUCATED REGARDING PAIN, THE RISK FOR PAIN, THE IMPORTANCE OF EFFECTIVE PAIN MANAGEMENT, AND THE PAIN ASSESSMENT PROCESS?YES LATEX QUESTIONNAIRE LATEX ALLERGY : HAVE YOU EVER DEVELOPED ANY TYPE OF REACTION AFTER HANDLING LATEX PRODUCTS SUCH RUBBER GLOVES, CONDOMS, DIAPHRAGMS, BALLOONS, SOCKS, OR UNDERWEAR?NO LATEX ALLERGY : HAVE YOU EVER DEVELOPED ANY TYPE OF REACTION DURING OR AFTER DENTAL APPOINTMENT, VAGINAL/RECTAL EXAMINATION, SURGICAL PROCEDURE, OR ANY OTHER EXPOSURE?NO LATEX RISK : HAVE YOU EVER HAD ANY DIFFICULTY BREATHING OR HIVES AFTER EATING OR HANDLING ANY FRUITS, OR VEGETABLES; SUCH KIWI, BANANAS, STONE FRUITS, OR CHESTNUTSNO LATEX RISK : DO YOU HAVE A PREVIOUS PERSONAL HISTORY OF MORE THAN NINE SURGERIES, SPINA BIFIDA, OR REPEATED CATHERTIZATIONS? YES - PLEASE INDICATE : > 9 SURGERIES LATEX RISK : ARE YOU FREQUENTLY EXPOSED TO LATEX PRODUCTS IN YOUR OCCUPATION?YES DATE ASKED : 08/06/2018 [place] 2-5/DAY. 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 MARITAL STATUS: . ALCOHOL SCREENING DID YOU HAVE A DRINK CONTAINING ALCOHOL IN THE PAST YEAR?YES HOW OFTEN DID YOU HAVE A DRINK CONTAINING ALCOHOL IN THE PAST YEAR?TWO TO THREE TIMES PER WEEK (3 POINTS) HOW MANY DRINKS DID YOU HAVE ON A TYPICAL DAY WHEN YOU WERE DRINKING IN THE PAST YEAR?3 OR 4 (1 POINT) HOW OFTEN DID YOU HAVE SIX OR MORE DRINKS ON ONE OCCASION IN THE PAST YEAR?NEVER (0 POINTS) POINTS4 INTERPRETATIONPOSITIVE OCCUPATION: RETIRED. SEXUAL HX HAD SEX IN THE LAST 12 MONTHS (VAGINAL, ORAL, OR ANAL)?YES WITHWOMEN ONLY USE PROTECTION?NO HAVE YOU EVER HAD AN STD?NO REVIEWED WITH PATIENT 02/14/18 0938REVIEWED WITH PATIENT 03/27 18 1202 JS REVIEWED WITH PATIENT 05/14/18 1050 LASREVIEWED WITH PATIENT 08/06/18 1310 JS. HOSPITALIZATION/MAJOR DIAGNOSTIC PROCEDURE OD AMAUROSIS FUGAX X 5 MIN-+ ASA [address] INTERIANO, CT HEAD NAD, CAROTID US B ICA <50%, NORMAL TELEMTRY, STABLE TTE 05/12-07/26 REVIEW OF SYSTEMS REVIEWED BY: PROVIDER: . CONSTITUTIONAL: ANY CHANGE IN YOUR MEDICAL CONDITION? NO . CHILLS NO . FEVER NO . INFECTION: DO YOU HAVE NEW INFECTIONS? NO . DO YOU HAVE HISTORY OF MRSA? NO . MUSCULOSKELETAL: ANY NEW PATTERNS OF PAIN OR NUMBNESS? NO . GASTROENTEROLOGY: ANY NEW CHANGE IN BOWEL CONTROL? NO . GENITOURINARY: ANY NEW CHANGE IN BLADDER CONTROL? NO . IS THERE A CHANCE YOU COULD BE ? NO . HEMATOLOGY/LYMPH: DO YOU TAKE ANY BLOOD THINNERS? (FOR EXAMPLE- COUMADIN, PLAVIX, AGGRENOX, PLATEL, PRADAXA, OR XARELTO) YES, ELIQUIS . WHEN WAS YOUR LAST DOSE? DATE: 08/02/18TIME: 193 . NEUROLOGY: HAVE YOU FALLEN IN THE PAST 12 MONTHS? YES, STATES FALL KYLEE SWATHI, DISCUSSED AT PREVIOUS VISIT . ANY NEW EXTREMITY NUMBNESS OR WEAKNESS? NO . CARDIOLOGY: DO YOU HAVE A PACEMAKER OR DEFIBRILLATOR? NO . RESPIRATORY: HAVE YOU BEEN SICK IN THE PAST WEEK? NO . FEVER NO . FLU LIKE SYMPTOMS? NO . COUGH NO . INTEGUMENTARY: DO YOU HAVE ANY RASHES OR OPEN SORES? NO . ALLERGIC/IMMUNO: ARE YOU ALLERGIC TO IV DYE? NO . ANY NEW ALLERGIES? NO . PSYCHIATRIC: DO YOU HAVE THOUGHTS OF HURTING YOURSELF OR SOMEONE ELSE? NO . ARE YOU ABUSED, NEGLECTED, OR IN AN UNSAFE ENVIRONMENT? NO . ENDOCRINOLOGY: ARE YOU DIABETIC? NO . OTHER: DO YOU NEED ANY PRESCRIPTIONS? NO . IF YES, PLEASE LIST: ____ . ANY NEW PROBLEMS WITH YOUR MEDICATIONS? NO . WHEN DID YOU LAST EAT? ____08/05/18 1900 . WHEN DID YOU LAST DRINK? ____08/06/18 0730 . WHAT DID YOU LAST DRINK? ____WATER . NAME OF PERSON DRIVING YOU HOME? ____ARNALDO CARDENAS . DO YOU HAVE ANY OTHER QUESTIONS OR CONCERNS NO . VITAL SIGNS WT 255.2 LBS, HT 70 IN, BMI 36.61 INDEX, BP 124/80 MM HG, HR 72 /MIN, RR 18 /MIN, TEMP 97.1 F, OXYGEN SAT % 97%, SAFE IN ENV? (Y/N) YES, NA INITIALS SC 12:26, REVIEWED BY: JS. 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 I EVALUATED THE PATIENT AND REVIEWED THE CHART. I WENT OVER THE RISKS, ALTERNATIVES, AND BENEFITS ASSOCIATED WITH THIS PROCEDURE. THE PATIENT WOULD LIKE TO PROCEED AND GIVE CONSENT TO PERFORMED THE PROCEDURE. THE PATIENT DENIES UNEXPLAINABLE WEIGHT LOSS, FEVER, CHILLS, OR CHANGES IN URINARY OR BOWEL CONTROL DESCRIPTION OF PROCEDURE THE PATIENT WAS BROUGHT TO THE PROCEDURE ROOM AND PLACED IN THE PRONE POSITION. THE LUMBOSACRAL AREA WAS CLEANED WITH BETADINE SOLUTION AND DRAPED ASEPTICALLY. THE PROCEDURE WAS DONE UNDER STERILE CONDITIONS. I CHECKED LATERALITY AND THE LEVEL WHERE THE PROCEDURE WAS GOING TO BE PERFORMED WITH THE PATIENT AND THE SUPPORTING STAFF AT THE MOMENT OF THE TIME OUT IN THE PROCEDURE ROOM. UNDER FLUOROSCOPIC GUIDANCE, TARGETS WERE SELECTED AT THE RIGHT TRANSFORAMINAL OPENING OF L4 AND L5. TARGET POINT WAS SELECTED AFTER LATERAL ROTATION AND TILT OF THE MAGNIFIER OF THE C-ARM. LIDOCAINE 0.5% WAS USED TO NUMB THE SKIN AND THE SUBCUTANEOUS TISSUE BELOW IT. AN EPIMED INTRODUCER 18-GAUGE WAS ADVANCED UNTIL WE WENT CLOSE TO THE SELECTED TRANSFORAMINAL OPENINGS. AFTER PROPER POSITION OF THE NEEDLES WAS ACHIEVED, A 22-GAUGE EPIMED NEEDLE WAS PLACED INSIDE OF THE INTRODUCER AND ADVANCED TO THE TRANSFORAMINAL OPENING OF THE SELECTED SITES. WHEN PROPER POSITION OF THE NEEDLE WAS ACHIEVED, ISOVUE M DYE 30%, 0.25 ML, WAS INJECTED SHOWING ADEQUATE SPREAD OF THE DYE. THIS WAS DONE UNDER DIGITAL SUBTRACTION AND ANGIOGRAPHY. THERE WAS NO VASCULAR UPDATE. THEN, A SOLUTION OF 2 ML OF BUPIVACAINE 0.25% AND DEXAMETHASONE 10 MG WAS INJECTED AT EACH SITE. THERE WAS NO EVIDENCE OF BLOOD, PARESTHESIA OR CEREBROSPINAL FLUID DURING THE PROCEDURE. THE PATIENT WAS SENT TO THE RECOVERY ROOM. THE PATIENT WAS MOVING THE EXTREMITIES AND DOING WELL. THERE WAS NO COMPLICATION DURING THE PROCEDURE. FLUOROSCOPY TIME WAS 63 SECONDS POST PROCEDURE NOTE THE PROCEDURE DONE WAS DISCUSSED WITH THE PATIENT. THE PATIENT WILL BE SEEN IN A FOLLOW UP IN THE NEXT FEW WEEKS. INSTRUCTIONS WERE GIVEN, QUESTIONS WERE ANSWERED, AND THE PATIENT EXPRESSED UNDERSTANDING AND AGREES WITH THE PLAN. I, ROSALIND EDGAR, DOCUMENTED THE ABOVE INFORMATION ACTING A SCRIBE FOR DR. AGUILERA. I HAVE REVIEWED THE ABOVE DOCUMENT, WRITTEN BY ROSALIND LUX AND I VERIFY THAT IT IS ACCURATE. DIAGNOSTIC IMAGING [facility] FLUORO GUIDE SPINE INJECTION (PAIN)[id number] PROCEDURE CODES 17462 INJ FORAMEN EPIDURAL L/S, [place]IF[place]: [place] [address] INJ FORAMEN EPIDURAL ADD-ON, MODIFIERS: RT 6045F RADXPS IN END [id number] PXD DISPOSITION & COMMUNICATION FOLLOW UP 3 WEEKS ELECTRONICALLY SIGNED BY BRITTNEY AGUILERA MD, MD ON 08/18/2018 AT 05:03 PM EDT DISCLAIMER : THIS IS A VISIT SUMMARY EXTRACTED FROM THE [facility] CHART. IT IS NOT A COPY OF THE [facility] PROGRESS NOTE. MTDD
== END ==
LOC: M PAIN 12:15
PROVIDERS: ATTEND Anesthesiology
DX: G89.29 Other chronic pain (principal); M51.16 Intervertebral disc disorders with radiculopathy, lumbar region; R73.01 Impaired fasting glucose; E78.5 Hyperlipidemia, unspecified; I10 Essential (primary) hypertension; G47.33 Obstructive sleep apnea (adult) (pediatric); Z79.01 Long term (current) use of anticoagulants; Z79.82 Long term (current) use of aspirin; Z79.84 Long term (current) use of oral hypoglycemic drugs; Z79.899 Other long term (current) drug therapy; Z88.6 Allergy status to analgesic agent; Z86.79 Personal history of other diseases of the circulatory system; Z96.641 Presence of right artificial hip joint
CPT/HCPCS: 64483; 64484; J1100; Q9967

== ENCOUNTER 2018-08-13 10:36 | Emergency (ER) | payer MEDICARE, OTHER ==
[~2018-08-13] VITALS: Ht 177.8 cm; Wt 115.8 kg
[~2018-08-13 10:36] MED LIST changes: -BUPIVACAINE HCL 0.25% 30 ML VIAL As Ordered ONE; -COQ-100C5 PO; -FLEC10TA PO; -ISOVUE-M 300 61% 15ML VIAL (Q9967) As Ordered ONE; -LIDOCAINE 1% SDV INJ 30 ML VIAL As Ordered ONE; -dexameTHASONE 10 MG/1 ML VIAL PRES.FREE (J1100) As Ordered ONE; -diazePAM 5 MG TAB As Ordered ONE; -diphenhydrAMINE 25 MG CAP As Ordered ONE; -oxyCODONE 5MG TAB As Ordered ONE
[2018-08-13 11:01] LABS: BASO # 0.1 10^3/uL (0.0-0.2); BASO % 0.8 % (0.0-1.0); EOS # 0.2 10^3/uL (0.0-0.50); HEMATOCRIT 47.8 % (42.0-52.0); HEMOGLOBIN 16.9 g/dl (13.5-17.5); LYMPH # 2.2 10^3/uL (1.5-4.5); LYMPH % 28.6 % (24.0-44.0); MEAN CORPUSCULAR HEMOGLOBIN 32.1 pg (27.0-33.0); MEAN CORPUSCULAR HGB CONC 35.4 g/dl (32.0-36.5); MEAN CORPUSCULAR VOLUME 90.7 fl (80.0-96.0); MONO # 0.7 10^3/uL (0.0-0.8); MONO % 8.5 % (0.0-5.0); NEUTROPHILS # 4.5 10^3/uL (1.8-7.7); NEUTROPHILS % 58.3 % (36.0-66.0); PLATELET COUNT, AUTOMATED 263 10^3/uL (150-450); RED BLOOD COUNT 5.27 10^6/uL (4.30-6.10); WHITE BLOOD COUNT 7.8 10^3/uL (4.0-10.0)
[2018-08-13 11:14] LABS: INR 1.11; PROTHROMBIN TIME 14.5 SECONDS (12.1-14.4)
--- NOTE | 2018-08-13 11:27 | REP ---
Portable chest x-ray: Single view. History: Chest pain. Comparison study: April 02, 2016. Findings: A loop recorder is seen in the left precordial region. There is an annular metallic density overlying the heart consistent with cardiac valve replacement. This is unchanged. This appears to be a mitral valve replacement. The heart is not felt to be enlarged. Pulmonary vasculature is somewhat cephalized however. Pleural angles are sharp. No infiltrate is seen. Impression: Status post mitral valve replacement. Loop recorder seen. Pulmonary vascular cephalization. Otherwise no acute disease. Electronically Signed by Richard Bradley MD 08/13/2018 10:25 P
[2018-08-13] MEDS: METOPROLOL 5 MG/5 ML VIAL IV SCH ×3 (11:31→11:50)
[2018-08-13 11:41] LABS: ALBUMIN 4.3 GM/DL (3.2-5.2); ALT/SGPT 29 U/L (12-78); BILIRUBIN,DIRECT 0.1 MG/DL (0.0-0.2); BILIRUBIN,TOTAL 0.6 MG/DL (0.2-1.0); BLOOD UREA NITROGEN 15 MG/DL (7-18); CALCIUM LEVEL 9.2 MG/DL (8.8-10.2); CARBON DIOXIDE LEVEL 27 MEQ/L (21-32); CHLORIDE LEVEL 104 MEQ/L (98-107); CPK CREATINE PHOSPHOKINASE 153 U/L (39-308); CREATININE FOR GFR 0.84 MG/DL (0.70-1.30); FREE T4 0.82 NG/DL (0.76-1.46); GLOMERULAR FILTRATION RATE > 60.0 (>49); GLUCOSE, FASTING 134 MG/DL (70-100); LIPASE 152 U/L (73-393); NT-PRO BNP 99 PG/ML (<125); POTASSIUM SERUM 4.5 MEQ/L (3.5-5.1); SODIUM LEVEL 138 MEQ/L (136-145); TOTAL PROTEIN 7.2 GM/DL (6.4-8.2); TROPONIN I < 0.02 NG/ML (< 0.10)
[2018-08-13 11:50] VITALS: BP 116/69
[2018-08-13] MEDS ORDERED: FLECAINIDE 50MG TABLET PO STA (12:00)
[2018-08-13 16:02] LABS: MAGNESIUM LEVEL 2.1 MG/DL (1.8-2.4)
[2018-08-13] MEDS ORDERED: FLEC10TA PO (16:09)
[2018-08-13] MEDS ORDERED: COQ-100C5 PO (16:19)
[2018-08-13 17:00] VITALS: BP 117/77
--- NOTE | 2018-08-13 19:35 | ECGEPIP ---
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
--- NOTE | 2018-08-13 19:49 | ECGEPIP ---
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
== END 2018-08-13 17:23 | disposition home or self-care (01) ==
LOC: M ED 10:36
DX: I48.0 Paroxysmal atrial fibrillation (principal); I48.91 Unspecified atrial fibrillation; I10 Essential (primary) hypertension; E78.5 Hyperlipidemia, unspecified; G47.30 Sleep apnea, unspecified; Z87.19 Personal history of other diseases of the digestive system; Z95.4 Presence of other heart-valve replacement; Z95.818 Presence of other cardiac implants and grafts; I28.8 Other diseases of pulmonary vessels; Z79.82 Long term (current) use of aspirin; Z79.899 Other long term (current) drug therapy; Z88.8 Allergy status to other drugs, medicaments and biological substances; Z88.1 Allergy status to other antibiotic agents

== ENCOUNTER → 2018-08-21 | Outpatient (REF) | payer MEDICARE, OTHER ==
[~2018-08-21] MED LIST changes: +COQ-100C5 PO; +FLEC10TA PO
[2018-08-21 17:23] LABS: HEMATOCRIT 44.3 % (42.0-52.0); HEMOGLOBIN 14.9 g/dl (13.5-17.5); MEAN CORPUSCULAR HEMOGLOBIN 31.2 pg (27.0-33.0); MEAN CORPUSCULAR HGB CONC 33.6 g/dl (32.0-36.5); MEAN CORPUSCULAR VOLUME 92.9 fl (80.0-96.0); PLATELET COUNT, AUTOMATED 269 10^3/uL (150-450); RED BLOOD COUNT 4.77 10^6/uL (4.30-6.10); WHITE BLOOD COUNT 8.9 10^3/uL (4.0-10.0)
[2018-08-21 17:24] LABS: BLOOD UREA NITROGEN 17 MG/DL (7-18); CALCIUM LEVEL 9.3 MG/DL (8.8-10.2); CARBON DIOXIDE LEVEL 29 MEQ/L (21-32); CHLORIDE LEVEL 104 MEQ/L (98-107); CREATININE FOR GFR 1.11 MG/DL (0.70-1.30); GLOMERULAR FILTRATION RATE > 60.0 (>49); GLUCOSE, FASTING 106 MG/DL (70-100); SODIUM LEVEL 140 MEQ/L (136-145)
== END ==
LOC: M LABDRAW1 17:00
PROVIDERS: ATTEND Internal Medicine Cardiovascular Disease
DX: I48.91 Unspecified atrial fibrillation (principal)

== ENCOUNTER → 2018-08-22 | Outpatient (CLI) | payer MEDICARE, OTHER ==
--- NOTE | 2018-09-11 01:47 | ECWPNPC ---
PATIENT NAME: TRAVIS CARDENAS : 1950 GENDER: MALE VISIT DATE: 08/22/2018 DISCHARGE DATE: 08/22/18 1043 VISIT LOCKED DATE TIME: PHYSICIAN: ELAINE DAVILA PHYSICIAN PAGER NO: [phone] RESOURCE: ELAINE DAVILA REASON FOR APPOINTMENT 1. POST PROC HISTORY OF PRESENT ILLNESS HISTORY OF PRESENT ILLNESS: HERE FOR POST PROCEDURE F/U.HAD RIGHT L4/5 TRANSFORAMINAL EPIDURAL ON 08/06/18.REPORTING NO SIGNIFICANT IMPROVEMENT.HE WILL BE MEETING WITH DR FREEMAN TO DISCUSS SURGERY.HAVING RIGHT GROIN AND ANTERIOR THIGH PAIN THAT HAS EVOLVED OVER THE PAST 2 MONTHS.RATING PAIN VAS 3/10. PAIN THE PATIENT DESCRIBES THE PAIN... FALL RISK SCREENING: SCREENING :NO FALLS REPORTED IN THE LAST YEAR CURRENT MEDICATIONS TAKING VITAMIN D 2000 UNIT TABLET 1 TABLET ORALLY ONCE A DAY TAKING PROTOPIC 0.1 % OINTMENT 1 APPLICATION TO AFFECTED AREA EXTERNALLY ONCE A DAY TAKING MAGNESIUM 250 MG TABLET 1 TABLET WITH A MEAL ORALLY BID TAKING TRANDOLAPRIL 1 MG TABLET 1 TABLET ORALLY ONCE A DAY TAKING METFORMIN HCL ER 500 MG TABLET EXTENDED RELEASE 24 HOUR 1 TABLET WITH EVENING MEAL ORALLY ONCE A DAY TAKING PANTOPRAZOLE SODIUM 40 MG TABLET DELAYED RELEASE 1 TABLET ORALLY ONCE A DAY TAKING BISOPROLOL FUMARATE 5 MG TABLET 1 TABLET ORALLY BID TAKING APIXABAN 5 MG TABLET DIRECTED ORALLY BID TAKING MULTIVITAMIN ADULT - TABLET DIRECTED ORALLY TAKING AREDS OTC TAKING CURCUMIN TABLET ORAL TAKING AMOXICILLIN 500 MG CAPSULE 4 CAPSULE ORALLY BEFORE DENTIST APPOINTMENT TAKING VOLTAREN 1 % GEL DIRECTED TRANSDERMAL TAKING GABAPENTIN 600 MG TABLET DIRECTED ORALLY TID TAKING TAMSULOSIN HCL 0.4 MG CAPSULE 1 CAPSULE ORALLY ONCE A DAY TAKING MELATONIN 10 MG TABLET DIRECTED ORALLY TAKING PRAVASTATIN SODIUM 20 MG TABLET 1 TABLET ORALLY ONCE A DAY TAKING ASPIRIN 81 81 MG TABLET DELAYED RELEASE 1 TABLET ORALLY ONCE A DAY TAKING ZALEPLON 10 MG CAPSULE 1 CAPSULE AT BEDTIME NEEDED ORALLY ONCE A DAY MEDICATION LIST REVIEWED AND RECONCILED WITH THE PATIENT PAST MEDICAL HISTORY IMPAIRED FASTING GLUCOSE HYPERLIPIDEMIA 2B HYPERTENSION HISTORY OF LEFT NEPHROLITHIASIS X1 STATUS POST LASER LITHOTRIPSY BY DR. FULTON OF 2009-10/2010 24 URINE ONLY WITH MILDY ELEVATED OXALATE OBESITY LELO. SEVERE ON CPAP LUMBAR SPONDYLSOSIS-L3/4 DIFFUSE BULGE, AP 8; L4/5 BROAD CENTRAL HNP C L NF NARROWING; L5/1 R 7 MM FACET CYST C MILD R NF NARROWING BY 09/2017 MRI HISTORY OF TRUNK/FACIAL AK'S ASYMPTOMATIC CHOLELITHIASIS-SEEN BY SEPTEMBER 2008 CT UMBILICAL HERNIA-SEEN BY SEPTEMBER 2008 CT INSOMNIA UGI BLEED SECONDARY TO DUODENAL ULCER (CAUSED BY PRECEDENT AUGMENTIN/FLAGYL, ASPIRIN, NSAID AND ETHOH USE), REQUIRED 6 UNITS PRBCS C ZEINAB HEMOGLOBIN 6.7, TREATED MAY 19, 2011 WITH THERMAL THERAPY-[facility]/08/2011 EGD-HIATAL HERNIA-[facility] CERVICAL DJD-11/2011 MRI C C3-7 SPONDYLOSIS MID UPPER BACK BASOSQUAMOUS CARCINOMA EXCISED 02/2012-[facility], MID CHEST SCC, [id number] 03/2013-[facility] HISTORY OF SEVERE MITRAL VALVE REGURGITATION STATUS POST MINIMALLY INVASIVE RIGHT THORACOTOMY WITH MEDTRONIC 3-D ANGIOPLASTY RING PLACEMENT, AND LEFT ATRIAL CRYOABLATION FOR ATRIAL FIBRILLATION-06/19/[id number]. WANDA'S ATRIAL FLUTTER-S/P R ATRIAL ABLATION 10/2012-DR. PEREZ// PATRICK BLUM MD R UPPER BACK BCC-EXCISED 10/2015-[facility] FACIAL AKS MILD DILATED AORTIC ROOT, NORMAL MVR S MS/MR BY 04/2016 TTE ANTECOL ATRIAL FIBRILLATION, PAROXYSMAL-S/P CARDIOVESION 04/02/16 [facility] AND 02/16/17 LOADED C DIGOXIN IV/PO R UATSDIN 4 MM SCC IN-SITU EXCISED 05/2017-[facility] PART OF [place] STUDY SINCE 1993 ([facility])-IMPACTS OF AGING ALLERGIES LEVAQUIN: TENDONS TIGHTEN - ALLERGY MOBIC: HIVES - ALLERGY CEPHALOSPORINS : SEVERE - ALLERGY CLINDAMYCIN HCL: PERFORATED INTESTINES - ALLERGY FLAGYL: ? DUODENAL ULCER - SIDE EFFECTS CECLOR: HIVES - SIDE EFFECTS SURGICAL HISTORY COLONOSCOPY-NORMAL APRIL 2003 L THR-FISH 01/23/2014 UMBILICAL HERNIA REPAIR-[facility] DR. PURCELL 04/28/15 RT-DR. AHMADI-MENDOZA SANCHEZ 03/12/17 HEART LOOP [id number]-PSDR. ED PEREZ 06/12/17 LEFT CATARACT -[facility] 11/29/17 APPENDECTOMY 05/1958 LASER EYE SURGERY 03/1994 LEFT WRIST SURGERY 02/2004 LEFT KIDNEY LITHTRIPSY 12/2009 NEGRITO 04/2012 EGD X3 05/2011 MITRAL VALAVE REPAIR AND CYRO ABLATION 06/2012 RIGHT HIP REPLACEMET 03/2017 RIGHT CATARACT 02/2018 LEFT CATARACT 11/29/17 SOCIAL HISTORY GENERAL: TOBACCO USE ARE YOU A:NONSMOKER HOW LONG HAS IT BEEN SINCE YOU LAST SMOKED?> 10 YEARS HIV / HEP-C SCREENING HIV TEST OFFERED TO PATIENT:YES DATE OFFERED:06/20/2016 TEST ACCEPTED:NO REASON:PATIENT DECLINED HEP-C TEST OFFERED TO PATIENT:YES DATE OFFERED:06/20/2016 TEST ACCEPTED:NO REASON:PATIENT DECLINED DIET: REGULAR. LANGUAGE LANGUAGES SPOKEN:KITTITIAN DOMESTIC VIOLENCE DO YOU FEEL SAFE IN YOUR ENVIRONMENT?YES BMI CARE GOAL FOLLOW-UP ABOVE NORMAL BMI FOLLOW-UPGIVING ENCOURAGEMENT TO EXERCISE RECREATIONAL DRUG USE DRUG USE?NO EXERCISE: NO REGULAR EXERCISE. LEARNING BARRIERS / SPECIAL NEEDS CHANGE FROM LAST VISIT?NO BARRIERS TO LEARNING?NO HEARING IMPAIRED?NO VISION IMPAIRED?NO COGNITIVELY IMPAIRED?NO READINESS TO LEARN?YES LEARNING PREFERENCES?NO LEARNING CAPABILITIES PRESENT?YES EMOTIONAL BARRIERS?NO PAIN CLINIC PFS, CLERGY, PUBLIC HEALTH REFERRALS HAS THE PATIENT BEEN EDUCATED REGARDING HIS/HER PLAN OF CARE?YES HAS THE PATIENT BEEN EDUCATED REGARDING PAIN, THE RISK FOR PAIN, THE IMPORTANCE OF EFFECTIVE PAIN MANAGEMENT, AND THE PAIN ASSESSMENT PROCESS?YES LATEX QUESTIONNAIRE LATEX ALLERGY : HAVE YOU EVER DEVELOPED ANY TYPE OF REACTION AFTER HANDLING LATEX PRODUCTS SUCH RUBBER GLOVES, CONDOMS, DIAPHRAGMS, BALLOONS, SOCKS, OR UNDERWEAR?NO LATEX ALLERGY : HAVE YOU EVER DEVELOPED ANY TYPE OF REACTION DURING OR AFTER DENTAL APPOINTMENT, VAGINAL/RECTAL EXAMINATION, SURGICAL PROCEDURE, OR ANY OTHER EXPOSURE?NO LATEX RISK : HAVE YOU EVER HAD ANY DIFFICULTY BREATHING OR HIVES AFTER EATING OR HANDLING ANY FRUITS, OR VEGETABLES; SUCH KIWI, BANANAS, STONE FRUITS, OR CHESTNUTSNO LATEX RISK : DO YOU HAVE A PREVIOUS PERSONAL HISTORY OF MORE THAN NINE SURGERIES, SPINA BIFIDA, OR REPEATED CATHERTIZATIONS? YES - PLEASE INDICATE : > 9 SURGERIES LATEX RISK : ARE YOU FREQUENTLY EXPOSED TO LATEX PRODUCTS IN YOUR OCCUPATION?YES DATE ASKED : 08/06/2018 [place] 2-5/DAY. ADVANCE DIRECTIVE ADVANCE DIRECTIVE DISCUSSED WITH PATIENT:YES HCP - ERICK CARDENAS () MANDAEISM MANDAEISM NO CHRISTIANITY BELIEFS THAT WOULD IMPACT HEALTH CARE. MARITAL STATUS: . ALCOHOL SCREENING DID YOU HAVE A DRINK CONTAINING ALCOHOL IN THE PAST YEAR?YES HOW OFTEN DID YOU HAVE A DRINK CONTAINING ALCOHOL IN THE PAST YEAR?TWO TO THREE TIMES PER WEEK (3 POINTS) HOW MANY DRINKS DID YOU HAVE ON A TYPICAL DAY WHEN YOU WERE DRINKING IN THE PAST YEAR?3 OR 4 (1 POINT) HOW OFTEN DID YOU HAVE SIX OR MORE DRINKS ON ONE OCCASION IN THE PAST YEAR?NEVER (0 POINTS) POINTS4 INTERPRETATIONPOSITIVE OCCUPATION: RETIRED. SEXUAL HX HAD SEX IN THE LAST 12 MONTHS (VAGINAL, ORAL, OR ANAL)?YES WITHWOMEN ONLY USE PROTECTION?NO HAVE YOU EVER HAD AN STD?NO REVIEWED WITH PATIENT 02/14/18 0938REVIEWED WITH PATIENT 03/27 18 1202 JS REVIEWED WITH PATIENT 05/14/18 1050 LASREVIEWED WITH PATIENT 08/06/18 1310 JSREVIEWED WITH PATIENT 08/22/18 1000 LAS. HOSPITALIZATION/MAJOR DIAGNOSTIC PROCEDURE OD AMAUROSIS FUGAX X 5 MIN-+ ASA [address] INTERIANO, CT HEAD NAD, CAROTID US B ICA <50%, NORMAL TELEMTRY, STABLE TTE 05/12-07/26 REVIEW OF SYSTEMS REVIEWED BY: PROVIDER: ELAINE CANTU . CONSTITUTIONAL: ANY CHANGE IN YOUR MEDICAL CONDITION? RECENTLY PT BACK IN AFIB, FOR AN ABLATION 09/19 . CHILLS NO . FEVER NO . INFECTION: DO YOU HAVE NEW INFECTIONS? NO . DO YOU HAVE HISTORY OF MRSA? NO . MUSCULOSKELETAL: ANY NEW PATTERNS OF PAIN OR NUMBNESS? PT HAD TRANSFORAMINAL 08/06, REPORTS MAYBE 10% IMPROVEMENT, TO SEE AN ORTHO SURGEON TO DISCUSS BACK SURGERY . GASTROENTEROLOGY: ANY NEW CHANGE IN BOWEL CONTROL? NO . GENITOURINARY: ANY NEW CHANGE IN BLADDER CONTROL? NO . IS THERE A CHANCE YOU COULD BE ? NO . HEMATOLOGY/LYMPH: DO YOU TAKE ANY BLOOD THINNERS? (FOR EXAMPLE- COUMADIN, PLAVIX, AGGRENOX, PLATEL, PRADAXA, OR XARELTO) YES . WHEN WAS YOUR LAST DOSE? DATE: TIME: . NEUROLOGY: HAVE YOU FALLEN IN THE PAST 12 MONTHS? YES . ANY NEW EXTREMITY NUMBNESS OR WEAKNESS? NO . CARDIOLOGY: DO YOU HAVE A PACEMAKER OR DEFIBRILLATOR? NO . RESPIRATORY: HAVE YOU BEEN SICK IN THE PAST WEEK? NO . FEVER NO . FLU LIKE SYMPTOMS? NO . COUGH NO . INTEGUMENTARY: DO YOU HAVE ANY RASHES OR OPEN SORES? NO . ALLERGIC/IMMUNO: ARE YOU ALLERGIC TO IV DYE? NO . ANY NEW ALLERGIES? NO . PSYCHIATRIC: DO YOU HAVE THOUGHTS OF HURTING YOURSELF OR SOMEONE ELSE? NO . ARE YOU ABUSED, NEGLECTED, OR IN AN UNSAFE ENVIRONMENT? NO . ENDOCRINOLOGY: ARE YOU DIABETIC? NO . OTHER: DO YOU NEED ANY PRESCRIPTIONS? NO . IF YES, PLEASE LIST: ____ . ANY NEW PROBLEMS WITH YOUR MEDICATIONS? NO . WHEN DID YOU LAST EAT? ____ . WHEN DID YOU LAST DRINK? ____ . WHAT DID YOU LAST DRINK? ____ . NAME OF PERSON DRIVING YOU HOME? ____ . DO YOU HAVE ANY OTHER QUESTIONS OR CONCERNS NO . VITAL SIGNS WT 256.0 LBS, HT 70 IN, BMI 36.73 INDEX, BP 116/69 MM HG, HR 56 /MIN, RR 18 /MIN, TEMP 97.2 F, OXYGEN SAT % 99, SAFE IN ENV? (Y/N) YES, NA INITIALS MP 0943, REVIEWED BY: ARIN. EXAMINATION GENERAL EXAMINATION: GENERAL APPEARANCE:AWAKE,ALERT ,PLEAASANT . PSYCHAFFECT NORMAL . LUNGS:LUNG ALDRICH ARE CLEAR TO AUSCULTATION BILATERALLY. GOOD MOVEMENT OF AIR . HEART:S1, S2 IN A REGULAR RATE AND RHYTHM. NO SIGNIFICANT MURMURS, RUBS OR GALLOPS NOTED . ASSESSMENTS LUMBOSACRAL RADICULOPATHY - M54.17 (PRIMARY) FACET ARTHROPATHY, LUMBOSACRAL - M47.817 TREATMENT LUMBOSACRAL RADICULOPATHY NOTES: FOLLOW WITH SURGEON. PROCEDURE CODES FA211 ESTABILISHED PATIENT [facility] CHARGE DISPOSITION & COMMUNICATION FOLLOW UP DISCHARGE TO DR FREEMAN ELECTRONICALLY SIGNED BY PEPE FABIAN ON 09/10/2018 AT 08:35 AM EDT DISCLAIMER : THIS IS A VISIT SUMMARY EXTRACTED FROM THE [employer] CHART. IT IS NOT A COPY OF THE [employer] PROGRESS NOTE. REGINA
== END ==
LOC: M PAIN 09:15
PROVIDERS: ATTEND Nurse Practitioner Family
DX: M54.17 Radiculopathy, lumbosacral region (principal); M47.817 Spondylosis without myelopathy or radiculopathy, lumbosacral region; I10 Essential (primary) hypertension; E78.5 Hyperlipidemia, unspecified; G47.33 Obstructive sleep apnea (adult) (pediatric); Z79.84 Long term (current) use of oral hypoglycemic drugs; Z79.82 Long term (current) use of aspirin; Z79.899 Other long term (current) drug therapy; Z88.6 Allergy status to analgesic agent; Z88.8 Allergy status to other drugs, medicaments and biological substances; Z96.641 Presence of right artificial hip joint; Z86.79 Personal history of other diseases of the circulatory system

== ENCOUNTER → 2018-11-12 | Outpatient (REF) | payer MEDICARE, OTHER ==
[2018-11-12 13:37] LABS: APPEARANCE, URINE CLEAR (CLEAR); BACTERIA, URINE AUTO NEGATIVE (NEGATIVE); BILIRUBIN, URINE AUTO NEGATIVE (NEGATIVE); BLOOD, URINE BLOOD NEGATIVE (NEGATIVE); COLOR, URINE YELLOW (YELLOW); GLUCOSE, URINE (UA) AUTO NEGATIVE (NEGATIVE); KETONE, URINE AUTO NEGATIVE (NEGATIVE); LEUKOCYTE ESTERASE, URINE AUTO NEGATIVE (NEGATIVE); MUCUS, URINE SMALL (NEGATIVE); NITRITE, URINE AUTO NEGATIVE (NEGATIVE); PROTEIN, URINE AUTO NEGATIVE (NEGATIVE); RBC, URINE AUTO 0 /HPF (0-3); SPECIFIC GRAVITY URINE AUTO 1.027 (1.002-1.035); SQUAMOUS EPITHELIAL CELL UR AU 0 /HPF (0-6); UROBILINOGEN, URINE AUTO 0.2 mg/dL (0.0-2.0); WBC, URINE AUTO 0 /HPF (0-3)
[2018-11-12 13:39] LABS: BASO % 0.7 % (0.0-1.0); EOS # 0.3 10^3/uL (0.0-0.50); EOS % 4.8 % (0.0-3.0); HEMATOCRIT 44.5 % (42.0-52.0); HEMOGLOBIN 14.5 g/dl (13.5-17.5); LYMPH # 1.5 10^3/uL (1.5-4.5); LYMPH % 26.2 % (24.0-44.0); MEAN CORPUSCULAR HEMOGLOBIN 31.2 pg (27.0-33.0); MEAN CORPUSCULAR HGB CONC 32.6 g/dl (32.0-36.5); MEAN CORPUSCULAR VOLUME 95.7 fl (80.0-96.0); MONO # 0.4 10^3/uL (0.0-0.8); MONO % 6.7 % (0.0-5.0); NEUTROPHILS # 3.5 10^3/uL (1.8-7.7); NEUTROPHILS % 61.1 % (36.0-66.0); PLATELET COUNT, AUTOMATED 231 10^3/uL (150-450); RED BLOOD COUNT 4.65 10^6/uL (4.30-6.10); WHITE BLOOD COUNT 5.7 10^3/uL (4.0-10.0)
[2018-11-12 13:56] LABS: ALT/SGPT 27 U/L (12-78); BILIRUBIN,TOTAL 0.4 MG/DL (0.2-1.0); BLOOD UREA NITROGEN 15 MG/DL (7-18); CARBON DIOXIDE LEVEL 29 MEQ/L (21-32); CHLORIDE LEVEL 106 MEQ/L (98-107); GLOMERULAR FILTRATION RATE > 60.0 (>49); GLUCOSE, FASTING 100 MG/DL (70-100); MAGNESIUM LEVEL 2.4 MG/DL (1.8-2.4); POTASSIUM SERUM 4.2 MEQ/L (3.5-5.1); SODIUM LEVEL 142 MEQ/L (136-145); TOTAL PROTEIN 6.8 GM/DL (6.4-8.2)
[2018-11-12 13:58] LABS: HEMOGLOBIN A1c 5.9 %; VITAMIN B12 LEVEL 483 PG/ML (247-911)
[2018-11-12 14:19] LABS: MALB URINE SIEMENS 41.2 MG/L; MAU/CREAT RATIO 23.4 MCG/MG (0.0-30.0)
== END ==
LOC: M LABDRAW1 11:56
PROVIDERS: ATTEND Family Medicine
DX: D50.9 Iron deficiency anemia, unspecified (principal); I10 Essential (primary) hypertension; R73.01 Impaired fasting glucose

== ENCOUNTER 2019-01-03 11:37 | Outpatient (RCR) | payer MEDICARE, BC, OTHER ==
[~2019-01-03 11:37] MED LIST changes: -BISO5TAB5 PO; +BISO5TAB9 PO; +METF-791 PO; -METF500T4 PO
== END 2019-01-06 ==
LOC: M PT 11:37
PROVIDERS: ATTEND Orthopaedic Surgery
DX: Z47.1 Aftercare following joint replacement surgery (principal); Z96.651 Presence of right artificial knee joint

== ENCOUNTER → 2019-01-27 | Outpatient (REF) | payer MEDICARE, OTHER ==
[2019-01-27 13:25] LABS: BASO # 0.1 10^3/uL (0.0-0.2); BASO % 0.8 % (0.0-1.0); EOS # 0.2 10^3/uL (0.0-0.5); EOS % 3.8 % (0.0-3.0); HEMATOCRIT 40.9 % (42.0-52.0); HEMOGLOBIN 13.1 g/dl (13.5-17.5); LYMPH # 1.2 10^3/uL (1.5-5.0); LYMPH % 19.6 % (24.0-44.0); MEAN CORPUSCULAR HEMOGLOBIN 30.5 pg (27.0-33.0); MEAN CORPUSCULAR VOLUME 95.3 fl (80.0-96.0); MONO # 0.4 10^3/uL (0.0-0.8); MONO % 7.2 % (0.0-5.0); NEUTROPHILS # 4.2 10^3/uL (1.5-8.5); NEUTROPHILS % 68.1 % (36.0-66.0); PLATELET COUNT, AUTOMATED 288 10^3/uL (150-450); RED BLOOD COUNT 4.29 10^6/uL (4.30-6.10); WHITE BLOOD COUNT 6.1 10^3/uL (4.0-10.0)
[2019-01-27 13:32] LABS: APPEARANCE, URINE HAZY (CLEAR); BACTERIA, URINE AUTO NEGATIVE (NEGATIVE); BILIRUBIN, URINE AUTO NEGATIVE (NEGATIVE); BLOOD, URINE BLOOD NEGATIVE (NEGATIVE); CALCIUM OXALATE CRYSTALS SMALL; COLOR, URINE YELLOW (YELLOW); GLUCOSE, URINE (UA) AUTO NEGATIVE (NEGATIVE); KETONE, URINE AUTO TRACE mg/dL (NEGATIVE); LEUKOCYTE ESTERASE, URINE AUTO NEGATIVE (NEGATIVE); MUCUS, URINE MODERATE (NEGATIVE); NITRITE, URINE AUTO NEGATIVE (NEGATIVE); PROTEIN, URINE AUTO NEGATIVE (NEGATIVE); RBC, URINE AUTO 1 /HPF (0-3); SPECIFIC GRAVITY URINE AUTO 1.028 (1.002-1.035); SQUAMOUS EPITHELIAL CELL UR AU 0 /HPF (0-6); UROBILINOGEN, URINE AUTO 0.2 mg/dL (0.0-2.0); WBC, URINE AUTO 2 /HPF (0-3)
[2019-01-27 13:43] LABS: HEMOGLOBIN A1c 5.8 %
[2019-01-27 14:00] LABS: CHOLESTEROL RISK RATIO 3.479 (<5)
[2019-01-27 14:10] LABS: MALB URINE SIEMENS 42.6 MG/L; MAU/CREAT RATIO 16.8 MCG/MG (0.0-30.0)
== END ==
LOC: M LABDRAW1 11:47
PROVIDERS: ATTEND Family Medicine
DX: R73.01 Impaired fasting glucose (principal); D50.9 Iron deficiency anemia, unspecified; E78.5 Hyperlipidemia, unspecified

== ENCOUNTER 2019-01-31 12:44 | Outpatient (RCR) | payer MEDICARE, BC, OTHER | END 2019-02-06 | LOC: M PT 12:44 | PROVIDERS: ATTEND Orthopaedic Surgery | DX: Z96.651 Presence of right artificial knee joint (principal) ==

== ENCOUNTER → 2019-01-31 | Outpatient (REF) | payer MEDICARE, OTHER | LOC: M SFHCPLAZ 15:26 | PROVIDERS: ATTEND Family Medicine | DX: L82.1 Other seborrheic keratosis (principal); Z23 Encounter for immunization | CPT/HCPCS: 11307; 88305; 90682; G0008; G0463 ==

== ENCOUNTER → 2019-05-05 | Outpatient (REF) | payer MEDICARE, OTHER ==
[~2019-05-05] MED LIST changes: +BISO5TAB14 PO; -BISO5TAB9 PO
[2019-05-05 12:32] LABS: APPEARANCE, URINE CLEAR (CLEAR); BACTERIA, URINE AUTO NEGATIVE (NEGATIVE); BILIRUBIN, URINE AUTO NEGATIVE (NEGATIVE); BLOOD, URINE BLOOD NEGATIVE (NEGATIVE); COLOR, URINE STRAW (YELLOW); GLUCOSE, URINE (UA) AUTO NEGATIVE (NEGATIVE); KETONE, URINE AUTO NEGATIVE (NEGATIVE); LEUKOCYTE ESTERASE, URINE AUTO NEGATIVE (NEGATIVE); NITRITE, URINE AUTO NEGATIVE (NEGATIVE); PROTEIN, URINE AUTO NEGATIVE (NEGATIVE); RBC, URINE AUTO 0 /HPF (0-3); SPECIFIC GRAVITY URINE AUTO 1.011 (1.002-1.035); SQUAMOUS EPITHELIAL CELL UR AU 0 /HPF (0-6); UROBILINOGEN, URINE AUTO 0.2 mg/dL (0.0-2.0); WBC, URINE AUTO 0 /HPF (0-3)
[2019-05-05 12:37] LABS: BASO % 0.8 % (0.0-1.0); EOS # 0.2 10^3/uL (0.0-0.5); EOS % 3.6 % (0.0-3.0); HEMATOCRIT 44.6 % (42.0-52.0); HEMOGLOBIN 14.1 g/dl (13.5-17.5); LYMPH # 1.5 10^3/uL (1.5-5.0); MEAN CORPUSCULAR HEMOGLOBIN 29.4 pg (27.0-33.0); MEAN CORPUSCULAR HGB CONC 31.6 g/dl (32.0-36.5); MEAN CORPUSCULAR VOLUME 93.1 fl (80.0-96.0); MONO # 0.4 10^3/uL (0.0-0.8); MONO % 7.4 % (0.0-5.0); NEUTROPHILS # 3.1 10^3/uL (1.5-8.5); NEUTROPHILS % 58.8 % (36.0-66.0); PLATELET COUNT, AUTOMATED 258 10^3/uL (150-450); RED BLOOD COUNT 4.79 10^6/uL (4.30-6.10); WHITE BLOOD COUNT 5.2 10^3/uL (4.0-10.0)
[2019-05-05 12:40] LABS: CHOLESTEROL RISK RATIO 3.978 (<5)
[2019-05-05 13:13] LABS: CREATININE, URINE 57.6 MG/DL; MALB URINE SIEMENS 10.6 MG/L; MAU/CREAT RATIO 18.4 MCG/MG (0.0-30.0)
== END ==
LOC: M LABDRAW1 07:43
PROVIDERS: ATTEND Family Medicine
DX: R73.01 Impaired fasting glucose (principal); D50.9 Iron deficiency anemia, unspecified; E78.5 Hyperlipidemia, unspecified

== ENCOUNTER → 2019-10-01 | Outpatient (CLI) | payer MEDICARE, OTHER ==
[~2019-10-01] MED LIST changes: -METF-791 PO; +METF-838 PO
[2019-10-01 14:19] LABS: ALT/SGPT 28 U/L (12-78); BILIRUBIN,TOTAL 0.6 MG/DL (0.2-1.0); BLOOD UREA NITROGEN 13 MG/DL (7-18); CALCIUM LEVEL 8.9 MG/DL (8.8-10.2); CARBON DIOXIDE LEVEL 29 MEQ/L (21-32); CHLORIDE LEVEL 105 MEQ/L (98-107); CREATININE FOR GFR 0.86 MG/DL (0.70-1.30); FREE T4 0.94 NG/DL (0.76-1.46); GLOMERULAR FILTRATION RATE > 60.0 (>42); GLUCOSE, FASTING 93 MG/DL (70-100); POTASSIUM SERUM 4.4 MEQ/L (3.5-5.1); SODIUM LEVEL 140 MEQ/L (136-145); TOTAL PROTEIN 6.9 GM/DL (6.4-8.2)
[2019-10-01 14:20] LABS: VITAMIN B12 LEVEL 761 PG/ML (247-911)
[2019-10-01 15:16] LABS: BASO % 0.6 % (0.0-1.0); EOS # 0.2 10^3/uL (0.0-0.5); EOS % 3.2 % (0.0-3.0); HEMATOCRIT 44.2 % (42.0-52.0); HEMOGLOBIN 14.4 g/dl (13.5-17.5); LYMPH # 1.5 10^3/uL (1.5-5.0); LYMPH % 22.7 % (24.0-44.0); MEAN CORPUSCULAR HEMOGLOBIN 30.8 pg (27.0-33.0); MEAN CORPUSCULAR HGB CONC 32.6 g/dl (32.0-36.5); MEAN CORPUSCULAR VOLUME 94.6 fl (80.0-96.0); MONO # 0.5 10^3/uL (0.0-0.8); MONO % 7.7 % (0.0-5.0); NEUTROPHILS # 4.2 10^3/uL (1.5-8.5); NEUTROPHILS % 65.3 % (36.0-66.0); PLATELET COUNT, AUTOMATED 254 10^3/uL (150-450); RED BLOOD COUNT 4.67 10^6/uL (4.30-6.10); WHITE BLOOD COUNT 6.5 10^3/uL (4.0-10.0)
== END ==
LOC: M WUC 08:03
PROVIDERS: ATTEND Family Medicine
DX: Z12.5 Encounter for screening for malignant neoplasm of prostate (principal); E78.5 Hyperlipidemia, unspecified; R73.01 Impaired fasting glucose; D50.9 Iron deficiency anemia, unspecified
CPT/HCPCS: 36415; 80053; 82607; 83525; 84439; 84443; 85025; 85046; G0103

== ENCOUNTER → 2019-11-03 | Outpatient (REF) | payer MEDICARE, OTHER ==
[~2019-11-03] MED LIST changes: +PANT40TA29 PO; -PANT40TA3 PO
== END ==
LOC: M WUC 11:31
PROVIDERS: ATTEND Nurse Practitioner
DX: N40.1 Benign prostatic hyperplasia with lower urinary tract symptoms (principal)

== ENCOUNTER → 2019-11-13 | Outpatient (REF) | payer MEDICARE, BC, OTHER | LOC: M SFHCPLAZ 11:47 | PROVIDERS: ATTEND Family Medicine | DX: Z85.528 Personal history of other malignant neoplasm of kidney (principal); L98.9 Disorder of the skin and subcutaneous tissue, unspecified | CPT/HCPCS: 11102; 11103; 17000; 17003; 88305; G0463 ==

== ENCOUNTER → 2020-02-11 | Outpatient (CLI) | payer MEDICARE, OTHER ==
[2020-02-11 21:18] LABS: ALBUMIN 4.1 GM/DL (3.2-5.2); ALT/SGPT 34 U/L (12-78); BILIRUBIN,TOTAL 0.5 MG/DL (0.2-1.0); BLOOD UREA NITROGEN 17 MG/DL (7-18); CALCIUM LEVEL 9.1 MG/DL (8.8-10.2); CARBON DIOXIDE LEVEL 27 MEQ/L (21-32); CHLORIDE LEVEL 104 MEQ/L (98-107); CREATININE FOR GFR 0.92 MG/DL (0.70-1.30); GLOMERULAR FILTRATION RATE > 60.0 (>42); GLUCOSE, FASTING 117 MG/DL (70-100); MAGNESIUM LEVEL 2.4 MG/DL (1.8-2.4); POTASSIUM SERUM 4.6 MEQ/L (3.5-5.1); SODIUM LEVEL 138 MEQ/L (136-145); TOTAL PROTEIN 7.1 GM/DL (6.4-8.2)
== END ==
LOC: M WUC 14:18
PROVIDERS: ATTEND Internal Medicine Cardiovascular Disease
DX: I48.0 Paroxysmal atrial fibrillation (principal)

== ENCOUNTER → 2020-03-16 | Outpatient (CLI) | payer MEDICARE, OTHER ==
[2020-03-16 12:39] LABS: ALBUMIN 3.9 GM/DL (3.2-5.2); ALT/SGPT 31 U/L (12-78); BILIRUBIN,TOTAL 0.5 MG/DL (0.2-1.0); BLOOD UREA NITROGEN 15 MG/DL (7-18); CALCIUM LEVEL 8.9 MG/DL (8.8-10.2); CARBON DIOXIDE LEVEL 31 MEQ/L (21-32); CHLORIDE LEVEL 104 MEQ/L (98-107); CHOLESTEROL LEVEL 190 MG/DL (<200); CHOLESTEROL RISK RATIO 3.877 (<5); CREATININE FOR GFR 0.94 MG/DL (0.70-1.30); GLOMERULAR FILTRATION RATE > 60.0 (>42); GLUCOSE, FASTING 114 MG/DL (70-100); HDL CHOLESTEROL 49 MG/DL (>40); LDL CHOLESTEROL 103 MG/DL (<100); MAGNESIUM LEVEL 2.2 MG/DL (1.8-2.4); NON-HDL-C 141 MG/DL; POTASSIUM SERUM 4.6 MEQ/L (3.5-5.1); SODIUM LEVEL 139 MEQ/L (136-145); TOTAL PROTEIN 6.8 GM/DL (6.4-8.2); TRIGLYCERIDES LEVEL 191 MG/DL (<150)
[2020-03-16 12:44] LABS: MALB URINE SIEMENS 41.7 MG/L; MAU/CREAT RATIO 26.9 MCG/MG (0.0-30.0)
[2020-03-16 12:45] LABS: TOTAL 25(OH) VITAMIN D 35.2 NG/ML (30.0-100.0)
[2020-03-16 12:55] LABS: HEMOGLOBIN A1c 5.8 %
== END ==
LOC: M WUC 08:44
PROVIDERS: ATTEND Family Medicine
DX: E55.9 Vitamin D deficiency, unspecified (principal); R73.01 Impaired fasting glucose; Z79.899 Other long term (current) drug therapy

== ENCOUNTER → 2020-07-21 | Outpatient (CLI) | payer MEDICARE, OTHER ==
[~2020-07-21] MED LIST changes: +ASPI-569 PO; -ASPI81TAEC PO; +FERR324T21 PO; -FERR325T16 PO; -TRAN1TAB47 PO; -TRAN1TAB48 PO; +TRAN1TAB54 PO; +TRAN1TAB55 PO
[2020-07-21 11:36] LABS: BASO # 0.1 10^3/uL (0.0-0.2); BASO % 0.9 % (0.0-1.0); EOS # 0.3 10^3/uL (0.0-0.5); EOS % 3.9 % (0.0-3.0); HEMATOCRIT 44.2 % (42.0-52.0); HEMOGLOBIN 14.4 g/dl (13.5-17.5); LYMPH # 1.7 10^3/uL (1.5-5.0); LYMPH % 24.3 % (24.0-44.0); MEAN CORPUSCULAR HEMOGLOBIN 30.3 pg (27.0-33.0); MEAN CORPUSCULAR HGB CONC 32.6 g/dl (32.0-36.5); MEAN CORPUSCULAR VOLUME 92.9 fl (80.0-96.0); MONO # 0.6 10^3/uL (0.0-0.8); MONO % 8.8 % (2.0-8.0); NEUTROPHILS # 4.3 10^3/uL (1.5-8.5); NEUTROPHILS % 61.7 % (36.0-66.0); PLATELET COUNT, AUTOMATED 250 10^3/uL (150-450); RED BLOOD COUNT 4.76 10^6/uL (4.30-6.10)
[2020-07-21 14:20] LABS: ALT/SGPT 25 U/L (12-78); BILIRUBIN,TOTAL 0.5 MG/DL (0.2-1.0); BLOOD UREA NITROGEN 14 MG/DL (7-18); CALCIUM LEVEL 9.5 MG/DL (8.8-10.2); CARBON DIOXIDE LEVEL 27 MEQ/L (21-32); CHLORIDE LEVEL 105 MEQ/L (98-107); CHOLESTEROL LEVEL 166 MG/DL (<200); CHOLESTEROL RISK RATIO 3.254 (<5); CPK CREATINE PHOSPHOKINASE 89 U/L (39-308); CREATININE FOR GFR 0.72 MG/DL (0.70-1.30); GLOMERULAR FILTRATION RATE > 60.0 (>42); GLUCOSE, FASTING 101 MG/DL (70-100); HDL CHOLESTEROL 51 MG/DL (>40); LDL CHOLESTEROL 85 MG/DL (<100); MAGNESIUM LEVEL 2.2 MG/DL (1.8-2.4); NON-HDL-C 115 MG/DL; POTASSIUM SERUM 4.5 MEQ/L (3.5-5.1); SODIUM LEVEL 139 MEQ/L (136-145); TOTAL PROTEIN 6.8 GM/DL (6.4-8.2); TRIGLYCERIDES LEVEL 151 MG/DL (<150)
[2020-07-21 14:22] LABS: VITAMIN B12 LEVEL 611 PG/ML (247-911)
[2020-07-21 16:59] LABS: HEMOGLOBIN A1c 5.7 %
== END ==
LOC: M WUC 08:42
PROVIDERS: ATTEND Family Medicine
DX: D50.9 Iron deficiency anemia, unspecified (principal); R73.01 Impaired fasting glucose; E78.5 Hyperlipidemia, unspecified; I10 Essential (primary) hypertension; J30.9 Allergic rhinitis, unspecified

== ENCOUNTER → 2020-07-30 | Outpatient (REF) | payer MEDICARE, OTHER ==
[~2020-07-30] MED LIST changes: +GABA-283 PO; -GABA-845 PO
[2020-07-30 14:11] LABS: C REACTIVE PROTEIN QUANTITATIV < 0.30 MG/DL (0.00-0.30); RHEUMATOID FACTOR QUANT < 10.0 IU/ML (<15.0); URIC ACID 5.5 MG/DL (3.5-7.2)
[2020-08-05 20:08] LABS: CYCLIC CITRULLINATED PEPTIDE 4 units (0-19); HLA-B27 Negative (.); Lyme Disease IgG/IgM Antibodie <0.91 ISR (0.00-0.90); Lyme Disease IgM Ab Quantitati <0.80 index (0.00-0.79)
== END ==
LOC: M SFHCPLAZ 12:03
PROVIDERS: ATTEND Family Medicine
DX: M19.049 Primary osteoarthritis, unspecified hand (principal)
CPT/HCPCS: 36415; 81374; 84550; 85652; 86140; 86200; 86431; 86617; G0463

== ENCOUNTER → 2020-10-29 | Outpatient (CLI) | payer MEDICARE, OTHER ==
[~2020-10-29] MED LIST changes: +FLEC100T27 PO; -FLEC10TA PO
== END ==
LOC: M WUC 09:22
PROVIDERS: ATTEND Nurse Practitioner
DX: N40.1 Benign prostatic hyperplasia with lower urinary tract symptoms (principal)

== ENCOUNTER → 2020-11-24 | Outpatient (CLI) | payer MEDICARE, OTHER ==
[2020-11-24 13:21] LABS: BASO # 0.1 10^3/uL (0.0-0.2); BASO % 0.8 % (0.0-1.0); EOS # 0.3 10^3/uL (0.0-0.5); EOS % 4.3 % (0.0-3.0); HEMOGLOBIN 14.8 g/dl (13.5-17.5); LYMPH # 1.7 10^3/uL (1.5-5.0); LYMPH % 27.8 % (24.0-44.0); MEAN CORPUSCULAR HEMOGLOBIN 30.7 pg (27.0-33.0); MEAN CORPUSCULAR HGB CONC 32.9 g/dl (32.0-36.5); MEAN CORPUSCULAR VOLUME 93.4 fl (80.0-96.0); MONO # 0.5 10^3/uL (0.0-0.8); MONO % 7.4 % (2.0-8.0); NEUTROPHILS # 3.6 10^3/uL (1.5-8.5); NEUTROPHILS % 59.4 % (36.0-66.0); PLATELET COUNT, AUTOMATED 239 10^3/uL (150-450); RED BLOOD COUNT 4.82 10^6/uL (4.30-6.10); WHITE BLOOD COUNT 6.1 10^3/uL (4.0-10.0)
[2020-11-24 13:34] LABS: APPEARANCE, URINE CLEAR (CLEAR); BACTERIA, URINE AUTO NEGATIVE (NEGATIVE); BILIRUBIN, URINE AUTO NEGATIVE (NEGATIVE); BLOOD, URINE BLOOD NEGATIVE (NEGATIVE); COLOR, URINE YELLOW (YELLOW); GLUCOSE, URINE (UA) AUTO NEGATIVE (NEGATIVE); KETONE, URINE AUTO NEGATIVE (NEGATIVE); LEUKOCYTE ESTERASE, URINE AUTO NEGATIVE (NEGATIVE); MUCUS, URINE SMALL (NEGATIVE); NITRITE, URINE AUTO NEGATIVE (NEGATIVE); PROTEIN, URINE AUTO 1+ mg/dL (NEGATIVE); RBC, URINE AUTO 1 /HPF (0-3); SPECIFIC GRAVITY URINE AUTO 1.024 (1.002-1.035); SQUAMOUS EPITHELIAL CELL UR AU 0 /HPF (0-6); UROBILINOGEN, URINE AUTO 0.2 mg/dL (0.0-2.0); WBC, URINE AUTO 1 /HPF (0-3)
[2020-11-24 13:37] LABS: HEMOGLOBIN A1c 5.7 %
[2020-11-24 13:49] LABS: ALBUMIN 3.8 GM/DL (3.2-5.2); ALT/SGPT 27 U/L (12-78); BILIRUBIN,TOTAL 0.3 MG/DL (0.2-1.0); BLOOD UREA NITROGEN 14 MG/DL (7-18); CALCIUM LEVEL 8.3 MG/DL (8.8-10.2); CARBON DIOXIDE LEVEL 29 MEQ/L (21-32); CHLORIDE LEVEL 104 MEQ/L (98-107); FERRITIN 106 NG/ML (26-388); GLOMERULAR FILTRATION RATE > 60.0 (>42); GLUCOSE, FASTING 115 MG/DL (70-100); NT-PRO BNP 148 PG/ML (<125); POTASSIUM SERUM 4.3 MEQ/L (3.5-5.1); SODIUM LEVEL 139 MEQ/L (136-145); TOTAL PROTEIN 6.7 GM/DL (6.4-8.2)
[2020-11-24 13:57] LABS: MALB URINE SIEMENS 52.1 MG/L; MAU/CREAT RATIO 22.4 MCG/MG (0.0-30.0)
== END ==
LOC: M WUC 08:53
PROVIDERS: ATTEND Family Medicine
DX: I10 Essential (primary) hypertension (principal); R73.01 Impaired fasting glucose; D50.9 Iron deficiency anemia, unspecified; Z12.5 Encounter for screening for malignant neoplasm of prostate
CPT/HCPCS: 36415; 80053; 81001; 82043; 82728; 83036; 83525; 83880; 85025; G0103

== ENCOUNTER → 2020-11-29 | Outpatient (CLI) | payer MEDICARE, BC, OTHER ==
--- NOTE | 2020-11-29 09:36 | REP ---
INDICATION: UNILATERAL PRIMARY OSTEOARTHRITIS, LEFT KNEE COMPARISON: None. TECHNIQUE: AP, lateral, bilateral oblique and sunrise views. FINDINGS: Moderate tricompartmental osteoarthritic degenerative changes. No evidence for acute fracture or dislocation. No definite effusion. IMPRESSION: Moderate tricompartmental osteoarthritic degenerative changes. <Electronically signed by Pilo Verde > 11/29/20 0955
== END ==
LOC: M PLALAB 09:05
PROVIDERS: ATTEND Physical Medicine & Rehabilitation Pain Medicine
DX: M17.12 Unilateral primary osteoarthritis, left knee (principal)
CPT/HCPCS: 73564; G0463

== ENCOUNTER → 2020-12-14 | Outpatient (REF) | payer MEDICARE, OTHER, BC | LOC: M SFHCPLAZ 10:13 | PROVIDERS: ATTEND Family Medicine | DX: L82.1 Other seborrheic keratosis (principal); L57.0 Actinic keratosis | CPT/HCPCS: 11102; 11103; 11305; 88305; G0463 ==

== ENCOUNTER → 2021-01-17 | Outpatient (CLI) | payer MEDICARE, BC, OTHER | LOC: M PLALAB 15:29 | PROVIDERS: ATTEND Internal Medicine Cardiovascular Disease | DX: I48.91 Unspecified atrial fibrillation (principal) ==

== ENCOUNTER 2021-04-12 10:25 | Emergency (ER) | payer MEDICARE, BC, OTHER ==
[~2021-04-12] VITALS: Ht 177.8 cm; Wt 110.0 kg
[2021-04-12] MEDS ORDERED: SOTA80TA53 (10:50)
[2021-04-12 10:52] LABS: BASO % 0.5 % (0.0-1.0); EOS # 0.3 10^3/uL (0.0-0.5); EOS % 4.3 % (0.0-3.0); HEMATOCRIT 43.7 % (42.0-52.0); HEMOGLOBIN 14.1 g/dl (13.5-17.5); LYMPH # 1.2 10^3/uL (1.5-5.0); LYMPH % 20.7 % (24.0-44.0); MEAN CORPUSCULAR HEMOGLOBIN 30.1 pg (27.0-33.0); MEAN CORPUSCULAR HGB CONC 32.3 g/dl (32.0-36.5); MEAN CORPUSCULAR VOLUME 93.2 fl (80.0-96.0); MONO # 0.4 10^3/uL (0.0-0.8); MONO % 5.9 % (2.0-8.0); NEUTROPHILS # 4.1 10^3/uL (1.5-8.5); NEUTROPHILS % 68.3 % (36.0-66.0); PLATELET COUNT, AUTOMATED 240 10^3/uL (150-450); RED BLOOD COUNT 4.69 10^6/uL (4.30-6.10)
[2021-04-12] MEDS ORDERED: NS 500 ML IV ONE (10:55)
--- NOTE | 2021-04-12 11:11 | REP ---
INDICATION: Syncope/near-syncope. COMPARISON: 10/30/2018 FINDINGS: The technique utilized in obtaining the radiograph has magnified the cardiac silhouette and accentuated the interstitial markings. The cardiomediastinal silhouette is unchanged. There is a loop recorder identified status quo. The diaphragmatic surfaces of the lungs are regular, and the costophrenic angles are clear. The pulmonary cunha are clear. The imaged osseous structures are intact. IMPRESSION: There is no acute cardiopulmonary disease. <Electronically signed by Ovidio Srinivasan > 04/12/21 1100
[2021-04-12 11:26] LABS: BLOOD UREA NITROGEN 15 MG/DL (7-18); CALCIUM LEVEL 9.3 MG/DL (8.8-10.2); CARBON DIOXIDE LEVEL 29 MEQ/L (21-32); CHLORIDE LEVEL 102 MEQ/L (98-107); FREE T4 0.88 NG/DL (0.76-1.46); GLOMERULAR FILTRATION RATE > 60.0 (>42); GLUCOSE, FASTING 174 MG/DL (70-100); MAGNESIUM LEVEL 2.2 MG/DL (1.8-2.4); POTASSIUM SERUM 4.5 MEQ/L (3.5-5.1); SODIUM LEVEL 139 MEQ/L (136-145)
[2021-04-12 13:19] VITALS: BP 117/69
--- NOTE | 2021-04-13 00:57 | ECGEPIP ---
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
== END 2021-04-12 13:26 | disposition home or self-care (01) ==
LOC: M ED 10:25
DX: R55 Syncope and collapse (principal); Z79.899 Other long term (current) drug therapy; Z79.84 Long term (current) use of oral hypoglycemic drugs; Z79.82 Long term (current) use of aspirin; Z88.1 Allergy status to other antibiotic agents; Z88.8 Allergy status to other drugs, medicaments and biological substances

== ENCOUNTER → 2021-04-27 | Outpatient (CLI) | payer MEDICARE, BC, OTHER ==
[~2021-04-27] MED LIST changes: +SOTA80TA53
[2021-04-27 10:21] LABS: BASO # 0.1 10^3/uL (0.0-0.2); EOS # 0.2 10^3/uL (0.0-0.5); EOS % 3.4 % (0.0-3.0); HEMATOCRIT 43.3 % (42.0-52.0); HEMOGLOBIN 14.2 g/dl (13.5-17.5); LYMPH # 1.5 10^3/uL (1.5-5.0); LYMPH % 25.3 % (24.0-44.0); MEAN CORPUSCULAR HEMOGLOBIN 30.1 pg (27.0-33.0); MEAN CORPUSCULAR HGB CONC 32.8 g/dl (32.0-36.5); MEAN CORPUSCULAR VOLUME 91.9 fl (80.0-96.0); MONO # 0.4 10^3/uL (0.0-0.8); MONO % 7.4 % (2.0-8.0); NEUTROPHILS # 3.6 10^3/uL (1.5-8.5); NEUTROPHILS % 62.6 % (36.0-66.0); PLATELET COUNT, AUTOMATED 254 10^3/uL (150-450); RED BLOOD COUNT 4.71 10^6/uL (4.30-6.10); WHITE BLOOD COUNT 5.8 10^3/uL (4.0-10.0)
[2021-04-27 12:45] LABS: HEMOGLOBIN A1c 5.5 %
[2021-04-27 13:40] LABS: ALBUMIN 3.9 GM/DL (3.2-5.2); ALT/SGPT 22 U/L (12-78); BILIRUBIN,TOTAL 0.5 MG/DL (0.2-1.0); BLOOD UREA NITROGEN 13 MG/DL (7-18); CALCIUM LEVEL 9.1 MG/DL (8.8-10.2); CARBON DIOXIDE LEVEL 27 MEQ/L (21-32); CHLORIDE LEVEL 106 MEQ/L (98-107); CHOLESTEROL LEVEL 164 MG/DL (<200); CHOLESTEROL RISK RATIO 3.727 (<5); CREATININE FOR GFR 0.86 MG/DL (0.70-1.30); FERRITIN 64 NG/ML (26-388); FREE T4 0.93 NG/DL (0.76-1.46); GLOMERULAR FILTRATION RATE > 60.0 (>42); GLUCOSE, FASTING 103 MG/DL (70-100); HDL CHOLESTEROL 44 MG/DL (>40); LDL CHOLESTEROL 82 MG/DL (<100); NON-HDL-C 120 MG/DL; POTASSIUM SERUM 4.5 MEQ/L (3.5-5.1); PTH INTACT 50.2 PG/ML (18.5-88.0); SODIUM LEVEL 140 MEQ/L (136-145); TOTAL PROTEIN 6.6 GM/DL (6.4-8.2); TRIGLYCERIDES LEVEL 190 MG/DL (<150)
[2021-04-27 15:23] LABS: MALB URINE SIEMENS 53.9 MG/L; MAU/CREAT RATIO 24.7 MCG/MG (0.0-30.0)
== END ==
LOC: M PLALAB 08:59
PROVIDERS: ATTEND Family Medicine
DX: E55.9 Vitamin D deficiency, unspecified (principal); E78.5 Hyperlipidemia, unspecified; D50.9 Iron deficiency anemia, unspecified; R73.01 Impaired fasting glucose

== ENCOUNTER → 2021-05-25 | Outpatient (CLI) | payer MEDICARE, BC, OTHER | LOC: M RAD 12:25 | PROVIDERS: ATTEND Family Medicine | DX: I65.23 Occlusion and stenosis of bilateral carotid arteries (principal) ==

== ENCOUNTER 2021-08-23 14:00 | Observation (INO) | payer MEDICARE, BC, OTHER ==
[~2021-08-23] VITALS: Ht 177.8 cm; Wt 111.2 kg
[~2021-08-23 14:00] MED LIST changes: -SOTA80TA53; +SOTA80TA53 PO
[2021-08-23 15:01] LABS: BASO % 0.6 % (0.0-1.0); EOS # 0.2 10^3/uL (0.0-0.5); EOS % 2.8 % (0.0-3.0); HEMATOCRIT 42.2 % (42.0-52.0); HEMOGLOBIN 14.1 g/dl (13.5-17.5); LYMPH # 1.9 10^3/uL (1.5-5.0); LYMPH % 25.8 % (24.0-44.0); MEAN CORPUSCULAR HEMOGLOBIN 30.7 pg (27.0-33.0); MEAN CORPUSCULAR HGB CONC 33.4 g/dl (32.0-36.5); MEAN CORPUSCULAR VOLUME 91.7 fl (80.0-96.0); MONO # 0.5 10^3/uL (0.0-0.8); MONO % 7.5 % (2.0-8.0); NEUTROPHILS # 4.5 10^3/uL (1.5-8.5); PLATELET COUNT, AUTOMATED 238 10^3/uL (150-450); WHITE BLOOD COUNT 7.2 10^3/uL (4.0-10.0)
[2021-08-23 15:14] LABS: INR 0.94
[2021-08-23 15:19] LABS: PARTIAL THROMBOPLASTIN TIME 34.4 SECONDS (25.9-37.0)
[2021-08-23 15:26] LABS: CK-MB VALUE MASS 1.8 NG/ML (<3.6); MB/CK RELATIVE INDEX 1.75 (< OR =4)
[2021-08-23] MEDS ORDERED: amLODIPine 5 MG TAB PO ONE (16:15)
[2021-08-23 17:25] LABS: RSV AMPLIFICATION NEGATIVE (NEGATIVE)
[2021-08-23] MEDS ORDERED: ECOT81TA5 PO (17:44)
[2021-08-23] MEDS ORDERED: THERTAB52 PO (17:44)
[2021-08-23] MEDS ORDERED: PRES10CA2 PO (17:48)
[2021-08-23] MEDS ORDERED: IPRA6SP NARES (17:51)
[2021-08-23] MEDS ORDERED: AZEL0.055 NARES (17:51)
[2021-08-23] MEDS ORDERED: FLON27.5 NARES (17:51)
[2021-08-23] MEDS ORDERED: NORV5TAB PO (17:51)
[2021-08-23] MEDS ORDERED: ISOVUE-370 76% 100ML VIAL As Ordered ONE (17:51)
[2021-08-23] MEDS ORDERED: HOME MED LIST COMPLETE! XX SCH (17:55)
[2021-08-23] MEDS ORDERED: GLUCOSE 4GM CHEW TABLET PO PRN (17:55)
[2021-08-23] MEDS ORDERED: DEXTROSE 50% 50 ML SYRINGE IV PRN (17:55)
[2021-08-23] MEDS ORDERED: GLUCAGON INJ 1MG VIAL SC PRN (17:55)
[2021-08-23 19:01] LABS: ERYTHROCYTE SEDIMENTATION RATE 7 mm/hr (0-20)
[2021-08-23] MEDS ORDERED: SOTALOL 40MG PER 1/2 TABLET PO SCH (21:00)
[2021-08-23] MEDS ORDERED: PRAVASTATIN 20 MG TAB PO SCH (21:00)
[2021-08-23] MEDS ORDERED: INSULIN LISPRO (NovoLOG) PER UNIT SC SCH (21:00)
[2021-08-23] MEDS ORDERED: TAMSULOSIN 0.4 MG CAP PO SCH (21:00)
[2021-08-23] MEDS ORDERED: IPRATROPIUM 0.06% NASAL SPRAY 15 ML (ATROVENT) SCH (21:00)
[2021-08-23] MEDS ORDERED: trandolapriL 1 MG TAB PO SCH (21:00)
[2021-08-23] MEDS: GABAPENTIN 300 MG CAP PO SCH (21:07)
[2021-08-23] MEDS ORDERED: SOTALOL HCL 80 MG TAB PO SCH (21:22)
[2021-08-23] MEDS: SOTALOL HCL 80 MG TAB PO SCH (22:34)
[2021-08-24] VITALS: BP 115/67
[2021-08-24 04:00] VITALS: BP 109/57
[2021-08-24] MEDS ORDERED: PILL CUTTER 1 EACH XX PRN (05:25)
[2021-08-24 06:03] LABS: HEMATOCRIT 41.1 % (42.0-52.0); HEMOGLOBIN 13.8 g/dl (13.5-17.5); MEAN CORPUSCULAR HEMOGLOBIN 31.1 pg (27.0-33.0); MEAN CORPUSCULAR HGB CONC 33.6 g/dl (32.0-36.5); MEAN CORPUSCULAR VOLUME 92.6 fl (80.0-96.0); PLATELET COUNT, AUTOMATED 217 10^3/uL (150-450); RED BLOOD COUNT 4.44 10^6/uL (4.30-6.10); WHITE BLOOD COUNT 7.1 10^3/uL (4.0-10.0)
[2021-08-24 06:22] LABS: BLOOD UREA NITROGEN 12 MG/DL (7-18); CARBON DIOXIDE LEVEL 28 MEQ/L (21-32); CHLORIDE LEVEL 104 MEQ/L (98-107); CREATININE FOR GFR 0.88 MG/DL (0.70-1.30); GLOMERULAR FILTRATION RATE > 60.0 (>42); GLUCOSE, FASTING 100 MG/DL (70-100); POTASSIUM SERUM 4.4 MEQ/L (3.5-5.1); SODIUM LEVEL 140 MEQ/L (136-145)
[2021-08-24 06:23] LABS: CALCIUM LEVEL 9.3 MG/DL (8.8-10.2); MAGNESIUM LEVEL 2.2 MG/DL (1.8-2.4); PHOSPHORUS LEVEL 4.3 MG/DL (2.5-4.9)
[2021-08-24] MEDS ORDERED: INSULIN LISPRO (NovoLOG) PER UNIT SC SCH (07:30)
[2021-08-24 07:33] VITALS: BP 123/74
[2021-08-24] MEDS: SOTALOL HCL 80 MG TAB PO SCH (07:44)
[2021-08-24 08:11] VITALS: BP 123/74
[2021-08-24] MEDS: GABAPENTIN 300 MG CAP PO SCH (08:11)
[2021-08-24 08:21] VITALS: BP 130/84
[2021-08-24] MEDS ORDERED: ASPI-1 PO (08:49)
[2021-08-24] MEDS ORDERED: bisoproloL fumarate 5 MG TAB PO SCH (09:00)
[2021-08-24] MEDS ORDERED: ENOXAPARIN 40MG/0.4ML SYRINGE (J1650 PER 10MG) SC SCH (09:00)
[2021-08-24] MEDS ORDERED: ASPIRIN 325 MG TAB PO SCH (09:00)
[2021-08-24] MEDS ORDERED: amLODIPine 5 MG TAB PO SCH (09:00)
== END 2021-08-24 11:10 | disposition home or self-care (01) ==
LOC: M ED 14:00 → M ED INP 17:20 → M PCU 08-24 00:20
PROVIDERS: ADMIT Internal Medicine; ATTEND Internal Medicine
DX: G45.3 Amaurosis fugax (principal); I16.0 Hypertensive urgency; I48.91 Unspecified atrial fibrillation; G47.33 Obstructive sleep apnea (adult) (pediatric); I10 Essential (primary) hypertension; R73.01 Impaired fasting glucose; E78.5 Hyperlipidemia, unspecified; K80.20 Calculus of gallbladder without cholecystitis without obstruction; G47.00 Insomnia, unspecified; M47.816 Spondylosis without myelopathy or radiculopathy, lumbar region; M19.09 Primary osteoarthritis, other specified site; Z98.41 Cataract extraction status, right eye; Z98.42 Cataract extraction status, left eye; Z95.818 Presence of other cardiac implants and grafts; Z79.899 Other long term (current) drug therapy; Z79.82 Long term (current) use of aspirin; Z79.84 Long term (current) use of oral hypoglycemic drugs; Z88.1 Allergy status to other antibiotic agents; Z88.8 Allergy status to other drugs, medicaments and biological substances
CPT/HCPCS: 36415; 70450; 70496; 70498; 71045; 80047; 80048; 82550; 82553; 83735; 84100; 84443; 84484; 85025; 85027; 85610; 85652; 85730; 86850; 86900; 86901; 87631; 93005; 93041; 94760; 96372; 99285; G0378; J1650; Q9967

== ENCOUNTER → 2021-08-24 | Outpatient (CLI) | payer MEDICARE, OTHER, BC ==
[~2021-08-24] MED LIST changes: +ASPI-1 PO; +AZEL0.055 NARES; +ECOT81TA5 PO; +FLON27.5 NARES; +IPRA6SP NARES; +NORV5TAB PO; +PRES10CA2 PO; +THERTAB52 PO
[2021-08-24 15:38] LABS: BASO % 0.4 % (0.0-1.0); EOS # 0.2 10^3/uL (0.0-0.5); EOS % 2.4 % (0.0-3.0); HEMATOCRIT 43.2 % (42.0-52.0); HEMOGLOBIN 14.4 g/dl (13.5-17.5); LYMPH # 2.2 10^3/uL (1.5-5.0); LYMPH % 27.6 % (24.0-44.0); MEAN CORPUSCULAR HEMOGLOBIN 31.4 pg (27.0-33.0); MEAN CORPUSCULAR HGB CONC 33.3 g/dl (32.0-36.5); MEAN CORPUSCULAR VOLUME 94.1 fl (80.0-96.0); MONO # 0.8 10^3/uL (0.0-0.8); MONO % 9.6 % (2.0-8.0); NEUTROPHILS # 4.7 10^3/uL (1.5-8.5); NEUTROPHILS % 59.6 % (36.0-66.0); PLATELET COUNT, AUTOMATED 257 10^3/uL (150-450); RED BLOOD COUNT 4.59 10^6/uL (4.30-6.10); WHITE BLOOD COUNT 7.9 10^3/uL (4.0-10.0)
[2021-08-24 18:18] LABS: ERYTHROCYTE SEDIMENTATION RATE 12 mm/hr (0-20)
== END ==
LOC: M WUC 14:55
PROVIDERS: ATTEND Ophthalmology
DX: M31.6 Other giant cell arteritis (principal)

== ENCOUNTER → 2021-11-04 | Outpatient (CLI) | payer MEDICARE, OTHER, BC | LOC: M PLALAB 15:54 | PROVIDERS: ATTEND Nurse Practitioner | DX: N40.1 Benign prostatic hyperplasia with lower urinary tract symptoms (principal) ==

== ENCOUNTER → 2021-12-23 | Outpatient (CLI) | payer MEDICARE, BC, OTHER | LOC: M PLAIMG 10:36 | PROVIDERS: ATTEND Allergy & Immunology Allergy | DX: J32.9 Chronic sinusitis, unspecified (principal); K05.6 Periodontal disease, unspecified ==

== ENCOUNTER → 2022-01-25 | Outpatient (CLI) | payer MEDICARE, BC, OTHER ==
[2022-01-25 11:17] LABS: BASO # 0.1 10^3/uL (0.0-0.2); BASO % 0.7 % (0.0-1.0); EOS # 0.2 10^3/uL (0.0-0.5); EOS % 2.2 % (0.0-3.0); HEMATOCRIT 42.4 % (42.0-52.0); HEMOGLOBIN 14.3 g/dl (13.5-17.5); LYMPH # 1.6 10^3/uL (1.5-5.0); LYMPH % 23.7 % (24.0-44.0); MEAN CORPUSCULAR HGB CONC 33.7 g/dl (32.0-36.5); MEAN CORPUSCULAR VOLUME 91.8 fl (80.0-96.0); MONO # 0.5 10^3/uL (0.0-0.8); MONO % 7.8 % (2.0-8.0); NEUTROPHILS # 4.5 10^3/uL (1.5-8.5); NEUTROPHILS % 65.2 % (36.0-66.0); PLATELET COUNT, AUTOMATED 250 10^3/uL (150-450); RED BLOOD COUNT 4.62 10^6/uL (4.30-6.10); WHITE BLOOD COUNT 6.8 10^3/uL (4.0-10.0)
[2022-01-25 11:47] LABS: HEMOGLOBIN A1c 5.9 %
[2022-01-25 11:58] LABS: ALT/SGPT 25 U/L (12-78); BILIRUBIN,TOTAL 0.7 MG/DL (0.2-1.0); BLOOD UREA NITROGEN 16 MG/DL (7-18); CALCIUM LEVEL 9.1 MG/DL (8.8-10.2); CARBON DIOXIDE LEVEL 30 MEQ/L (21-32); CHLORIDE LEVEL 103 MEQ/L (98-107); CREATININE FOR GFR 0.91 MG/DL (0.70-1.30); FERRITIN 101 NG/ML (26-388); GLOMERULAR FILTRATION RATE > 60.0 (>42); GLUCOSE, FASTING 101 MG/DL (70-100); NT-PRO BNP 142 PG/ML (<125); POTASSIUM SERUM 4.3 MEQ/L (3.5-5.1); SODIUM LEVEL 138 MEQ/L (136-145)
[2022-01-26 21:07] LABS: APOLIPOPROTEIN B/A-1 RATIO 0.6 ratio (0.0-0.7)
== END ==
LOC: M PLALAB 08:09
PROVIDERS: ATTEND Family Medicine
DX: D50.9 Iron deficiency anemia, unspecified (principal); R73.01 Impaired fasting glucose; I10 Essential (primary) hypertension; E78.5 Hyperlipidemia, unspecified; Z12.5 Encounter for screening for malignant neoplasm of prostate
CPT/HCPCS: 36415; 80053; 82172; 82728; 83036; 83525; 83880; 85025; G0103

== ENCOUNTER → 2022-02-03 | Outpatient (CLI) | payer MEDICARE, BC, OTHER ==
[2022-02-03 16:58] LABS: C REACTIVE PROTEIN QUANTITATIV < 0.30 MG/DL (0.00-0.30); FREE T4 0.85 NG/DL (0.76-1.46)
== END ==
LOC: M PLALAB 14:17
PROVIDERS: ATTEND Family Medicine
DX: R53.83 Other fatigue (principal)

== ENCOUNTER → 2022-05-24 | Outpatient (CLI) | payer MEDICARE, BC, OTHER ==
[2022-05-24 11:03] LABS: CREATININE, URINE 133.9 MG/DL; MAU/CREAT RATIO 14.9 MCG/MG (0.0-30.0)
[2022-05-24 12:20] LABS: HEMOGLOBIN A1c 5.7 % (4.0-6.0)
[2022-05-24 14:55] LABS: ALBUMIN 3.9 G/DL (3.2-5.2); ALKALINE PHOSPHATASE 81 U/L (46-116); ALT/SGPT 19 U/L (7.0-40); AST/SGOT 21 U/L (<34); BILIRUBIN,TOTAL 0.7 MG/DL (0.3-1.2); BLOOD UREA NITROGEN 16 MG/DL (9-23); CALCIUM LEVEL 9.5 MG/DL (8.3-10.6); CARBON DIOXIDE LEVEL 28 MMOL/L (20-31); CHLORIDE LEVEL 102 MMOL/L (98-107); CHOLESTEROL LEVEL 155 MG/DL (<200); CHOLESTEROL RISK RATIO 3.36 (<5); CREATININE FOR GFR 0.78 MG/DL (0.70-1.30); GLOMERULAR FILTRATION RATE > 60.0 (>42); GLUCOSE, FASTING 103 MG/DL (74-106); HDL CHOLESTEROL 46.1 MG/DL (>40); NON-HDL-C 109 MG/DL; POTASSIUM SERUM 4.6 MMOL/L (3.5-5.1); PTH INTACT 39.6 PG/ML (18.5-88.0); SODIUM LEVEL 138 MMOL/L (136-145); TOTAL 25(OH) VITAMIN D 53.3 NG/ML (20.0-100.0)
[2022-05-24 22:13] LABS: LDL CHOLESTEROL 84.5 MG/DL (<100); TOTAL PROTEIN 6.8 G/DL (5.7-8.2); TRIGLYCERIDES LEVEL 122 MG/DL (<150)
== END ==
LOC: M PLALAB 08:02
PROVIDERS: ATTEND Family Medicine
DX: E78.5 Hyperlipidemia, unspecified (principal); I10 Essential (primary) hypertension; E55.9 Vitamin D deficiency, unspecified; R73.01 Impaired fasting glucose; Z79.899 Other long term (current) drug therapy

== ENCOUNTER → 2022-06-02 | Outpatient (CLI) | payer MEDICARE, BC, OTHER | LOC: M PLAIMG 09:54 | PROVIDERS: ATTEND Family Medicine | DX: M75.101 Unspecified rotator cuff tear or rupture of right shoulder, not specified as traumatic (principal) ==

== ENCOUNTER → 2022-06-05 | Outpatient (REF) | payer MEDICARE, BC, OTHER | LOC: M SFHCPLAZ 09:54 | PROVIDERS: ATTEND Family Medicine | DX: J32.3 Chronic sphenoidal sinusitis (principal) ==

== ENCOUNTER 2022-08-03 15:07 | Outpatient (RCR) | payer MEDICARE, BC, OTHER | END 2022-08-06 | LOC: M PT 15:07 | PROVIDERS: ATTEND Physical Medicine & Rehabilitation Pain Medicine | DX: M47.812 Spondylosis without myelopathy or radiculopathy, cervical region (principal) ==

== ENCOUNTER → 2022-11-02 | Outpatient (CLI) | payer MEDICARE, BC, OTHER ==
[2022-11-02 13:05] LABS: BASO % 0.6 % (0.0-1.0); EOS # 0.2 10^3/uL (0.0-0.5); EOS % 2.5 % (0.0-3.0); HEMATOCRIT 43.1 % (42.0-52.0); HEMOGLOBIN 14.2 g/dl (13.5-17.5); LYMPH # 1.8 10^3/uL (1.5-5.0); LYMPH % 26.2 % (24.0-44.0); MEAN CORPUSCULAR HEMOGLOBIN 30.7 pg (27.0-33.0); MEAN CORPUSCULAR HGB CONC 32.9 g/dl (32.0-36.5); MEAN CORPUSCULAR VOLUME 93.3 fl (80.0-96.0); MONO # 0.5 10^3/uL (0.0-0.8); MONO % 7.3 % (2.0-8.0); NEUTROPHILS # 4.2 10^3/uL (1.5-8.5); PLATELET COUNT, AUTOMATED 244 10^3/uL (150-450); RED BLOOD COUNT 4.62 10^6/uL (4.30-6.10); WHITE BLOOD COUNT 6.7 10^3/uL (4.0-10.0)
[2022-11-02 13:25] LABS: HEMOGLOBIN A1c 5.8 % (4.0-6.0)
[2022-11-02 13:36] LABS: ALKALINE PHOSPHATASE 66 U/L (46-116); ALT/SGPT 21 U/L (7.0-40); AST/SGOT 14 U/L (<34); BILIRUBIN,TOTAL 0.8 MG/DL (0.3-1.2); BLOOD UREA NITROGEN 13 MG/DL (9-23); CALCIUM LEVEL 9.6 MG/DL (8.3-10.6); CARBON DIOXIDE LEVEL 30 MMOL/L (20-31); CHLORIDE LEVEL 101 MMOL/L (98-107); CREATININE FOR GFR 0.75 MG/DL (0.70-1.30); GLOMERULAR FILTRATION RATE > 60.0 (>42); GLUCOSE, FASTING 97 MG/DL (74-106); POTASSIUM SERUM 4.5 MMOL/L (3.5-5.1); SODIUM LEVEL 138 MMOL/L (136-145); TOTAL PROTEIN 6.9 G/DL (5.7-8.2)
[2022-11-02 13:38] LABS: FERRITIN 79.1 NG/ML (10.5-307.3)
== END ==
LOC: M PLALAB 09:40
PROVIDERS: ATTEND Family Medicine
DX: Z12.5 Encounter for screening for malignant neoplasm of prostate (principal); R73.01 Impaired fasting glucose; I10 Essential (primary) hypertension; D50.9 Iron deficiency anemia, unspecified
CPT/HCPCS: 36415; 80053; 82728; 83036; 83525; 85025; 85046; G0103

== ENCOUNTER → 2022-11-06 | Outpatient (CLI) | payer MEDICARE, BC, OTHER | LOC: M PLALAB 09:48 | PROVIDERS: ATTEND Nurse Practitioner | DX: N40.1 Benign prostatic hyperplasia with lower urinary tract symptoms (principal) ==

== ENCOUNTER → 2022-11-14 | Outpatient (REF) | payer MEDICARE, OTHER ==
[~2022-11-14] MED LIST changes: -GABA-283 PO; +GABA-284 PO
== END ==
LOC: M SFHCPLAZ 14:52
PROVIDERS: ATTEND Family Medicine
DX: E78.5 Hyperlipidemia, unspecified (principal); I10 Essential (primary) hypertension; R73.01 Impaired fasting glucose

== ENCOUNTER → 2022-11-22 | Outpatient (CLI) | payer MEDICARE, BC, OTHER ==
[2022-11-22 10:37] LABS: BASO % 0.6 % (0.0-1.0); EOS # 0.3 10^3/uL (0.0-0.5); EOS % 3.5 % (0.0-3.0); HEMATOCRIT 43.2 % (42.0-52.0); HEMOGLOBIN 14.4 g/dl (13.5-17.5); LYMPH # 1.8 10^3/uL (1.5-5.0); LYMPH % 25.8 % (24.0-44.0); MEAN CORPUSCULAR HGB CONC 33.3 g/dl (32.0-36.5); MEAN CORPUSCULAR VOLUME 92.9 fl (80.0-96.0); MONO # 0.5 10^3/uL (0.0-0.8); MONO % 7.4 % (2.0-8.0); NEUTROPHILS # 4.4 10^3/uL (1.5-8.5); NEUTROPHILS % 62.3 % (36.0-66.0); PLATELET COUNT, AUTOMATED 246 10^3/uL (150-450); RED BLOOD COUNT 4.65 10^6/uL (4.30-6.10); WHITE BLOOD COUNT 7.1 10^3/uL (4.0-10.0)
[2022-11-22 10:48] LABS: ALKALINE PHOSPHATASE 65 U/L (46-116); ALT/SGPT 16 U/L (7.0-40); AST/SGOT 10 U/L (<34); BILIRUBIN,TOTAL 0.8 MG/DL (0.3-1.2); BLOOD UREA NITROGEN 11 MG/DL (9-23); CALCIUM LEVEL 9.3 MG/DL (8.3-10.6); CARBON DIOXIDE LEVEL 30 MMOL/L (20-31); CHLORIDE LEVEL 103 MMOL/L (98-107); CHOLESTEROL LEVEL 135 MG/DL (<200); CHOLESTEROL RISK RATIO 2.73 (<5); CREATININE FOR GFR 0.77 MG/DL (0.70-1.30); GLOMERULAR FILTRATION RATE > 60.0 (>42); GLUCOSE, FASTING 104 MG/DL (74-106); HDL CHOLESTEROL 49.3 MG/DL (>40); LDL CHOLESTEROL 49.5 MG/DL (<100); NON-HDL-C 85.7 MG/DL; POTASSIUM SERUM 4.5 MMOL/L (3.5-5.1); SODIUM LEVEL 140 MMOL/L (136-145); TOTAL PROTEIN 6.8 G/DL (5.7-8.2); TRIGLYCERIDES LEVEL 181 MG/DL (<150)
[2022-11-23 08:11] LABS: LDL DIRECT 64 mg/dL (0-99)
== END ==
LOC: M PLALAB 08:26
PROVIDERS: ATTEND Internal Medicine Cardiovascular Disease
DX: E78.2 Mixed hyperlipidemia (principal)

== ENCOUNTER → 2023-01-08 | Outpatient (CLI) | payer MEDICARE, BC, OTHER ==
[2023-01-08 16:02] LABS: HEMOGLOBIN 14.5 g/dl (13.5-17.5); MEAN CORPUSCULAR HEMOGLOBIN 31.3 pg (27.0-33.0); MEAN CORPUSCULAR HGB CONC 33.7 g/dl (32.0-36.5); MEAN CORPUSCULAR VOLUME 92.9 fl (80.0-96.0); PLATELET COUNT, AUTOMATED 250 10^3/uL (150-450); RED BLOOD COUNT 4.63 10^6/uL (4.30-6.10); WHITE BLOOD COUNT 8.6 10^3/uL (4.0-10.0)
[2023-01-08 16:29] LABS: ALBUMIN 4.1 G/DL (3.2-5.2); ALKALINE PHOSPHATASE 77 U/L (46-116); ALT/SGPT 22 U/L (7.0-40); AST/SGOT 17 U/L (<34); BILIRUBIN,TOTAL 0.6 MG/DL (0.3-1.2); BLOOD UREA NITROGEN 17 MG/DL (9-23); CALCIUM LEVEL 9.2 MG/DL (8.3-10.6); CARBON DIOXIDE LEVEL 32 MMOL/L (20-31); CHLORIDE LEVEL 104 MMOL/L (98-107); CHOLESTEROL LEVEL 144 MG/DL (<200); CHOLESTEROL RISK RATIO 2.92 (<5); CREATININE FOR GFR 0.89 MG/DL (0.70-1.30); GLOMERULAR FILTRATION RATE > 60.0 (>42); GLUCOSE, FASTING 86 MG/DL (74-106); HDL CHOLESTEROL 49.2 MG/DL (>40); LDL CHOLESTEROL 60.8 MG/DL (<100); MAGNESIUM LEVEL 2.1 MG/DL (1.8-2.4); NON-HDL-C 94.8 MG/DL; POTASSIUM SERUM 4.9 MMOL/L (3.5-5.1); SODIUM LEVEL 141 MMOL/L (136-145); TOTAL PROTEIN 6.9 G/DL (5.7-8.2); TRIGLYCERIDES LEVEL 170 MG/DL (<150)
[2023-01-08 16:42] LABS: HEMOGLOBIN A1c 5.2 % (4.0-6.0)
== END ==
LOC: M PLALAB 13:36
PROVIDERS: ATTEND Registered Nurse
DX: E78.2 Mixed hyperlipidemia (principal); I48.91 Unspecified atrial fibrillation; I34.0 Nonrheumatic mitral (valve) insufficiency; I50.9 Heart failure, unspecified; Z79.01 Long term (current) use of anticoagulants; Z79.899 Other long term (current) drug therapy

== ENCOUNTER → 2023-01-30 | Outpatient (CLI) | payer MEDICARE, BC, OTHER ==
[2023-01-30 14:05] LABS: BASO # 0.1 10^3/uL (0.0-0.2); BASO % 0.7 % (0.0-1.0); EOS # 0.2 10^3/uL (0.0-0.5); EOS % 2.5 % (0.0-3.0); HEMOGLOBIN 14.3 g/dl (13.5-17.5); LYMPH # 1.7 10^3/uL (1.5-5.0); LYMPH % 25.4 % (24.0-44.0); MEAN CORPUSCULAR HEMOGLOBIN 30.6 pg (27.0-33.0); MEAN CORPUSCULAR HGB CONC 32.5 g/dl (32.0-36.5); MONO # 0.6 10^3/uL (0.0-0.8); MONO % 8.6 % (2.0-8.0); NEUTROPHILS # 4.3 10^3/uL (1.5-8.5); NEUTROPHILS % 62.2 % (36.0-66.0); PLATELET COUNT, AUTOMATED 232 10^3/uL (150-450); RED BLOOD COUNT 4.68 10^6/uL (4.30-6.10); WHITE BLOOD COUNT 6.9 10^3/uL (4.0-10.0)
[2023-01-30 14:06] LABS: ALKALINE PHOSPHATASE 73 U/L (46-116); ALT/SGPT 18 U/L (7.0-40); AST/SGOT 14 U/L (<34); BILIRUBIN,TOTAL 0.6 MG/DL (0.3-1.2); BLOOD UREA NITROGEN 12 MG/DL (9-23); CALCIUM LEVEL 9.1 MG/DL (8.3-10.6); CARBON DIOXIDE LEVEL 32 MMOL/L (20-31); CHLORIDE LEVEL 104 MMOL/L (98-107); CHOLESTEROL LEVEL 141 MG/DL (<200); CHOLESTEROL RISK RATIO 2.74 (<5); CREATININE FOR GFR 0.77 MG/DL (0.70-1.30); GLOMERULAR FILTRATION RATE > 60.0 (>42); GLUCOSE, FASTING 107 MG/DL (74-106); HDL CHOLESTEROL 51.3 MG/DL (>40); LDL CHOLESTEROL 54.1 MG/DL (<100); NON-HDL-C 89.7 MG/DL; POTASSIUM SERUM 4.4 MMOL/L (3.5-5.1); SODIUM LEVEL 142 MMOL/L (136-145); TOTAL PROTEIN 6.7 G/DL (5.7-8.2); TRIGLYCERIDES LEVEL 178 MG/DL (<150)
[2023-01-30 14:10] LABS: THYROID STIMULATING HORMONE 1.794 uIU/ML (0.55-4.78)
[2023-01-30 14:14] LABS: CPK CREATINE PHOSPHOKINASE 68 U/L (46-171)
[2023-01-30 14:31] LABS: HEMOGLOBIN A1c 5.3 % (4.0-6.0)
== END ==
LOC: M PLALAB 09:44
PROVIDERS: ATTEND Family Medicine
DX: E78.5 Hyperlipidemia, unspecified (principal)

== ENCOUNTER → 2023-04-16 | Outpatient (CLI) | payer MEDICARE, BC, OTHER ==
[2023-04-16 10:58] LABS: BASO % 0.3 % (0.0-1.0); EOS # 0.1 10^3/uL (0.0-0.5); EOS % 1.5 % (0.0-3.0); HEMATOCRIT 42.3 % (42.0-52.0); HEMOGLOBIN 13.8 g/dl (13.5-17.5); LYMPH # 1.8 10^3/uL (1.5-5.0); LYMPH % 22.3 % (24.0-44.0); MEAN CORPUSCULAR HEMOGLOBIN 30.4 pg (27.0-33.0); MEAN CORPUSCULAR HGB CONC 32.6 g/dl (32.0-36.5); MEAN CORPUSCULAR VOLUME 93.2 fl (80.0-96.0); MONO # 0.6 10^3/uL (0.0-0.8); MONO % 7.8 % (2.0-8.0); NEUTROPHILS # 5.4 10^3/uL (1.5-8.5); NEUTROPHILS % 67.7 % (36.0-66.0); PLATELET COUNT, AUTOMATED 273 10^3/uL (150-450); RED BLOOD COUNT 4.54 10^6/uL (4.30-6.10); WHITE BLOOD COUNT 7.9 10^3/uL (4.0-10.0)
[2023-04-16 11:31] LABS: ALBUMIN 3.8 G/DL (3.2-5.2); ALKALINE PHOSPHATASE 74 U/L (46-116); ALT/SGPT 13 U/L (7.0-40); AST/SGOT 12 U/L (<34); BILIRUBIN,TOTAL 0.7 MG/DL (0.3-1.2); BLOOD UREA NITROGEN 11 MG/DL (9-23); CALCIUM LEVEL 9.2 MG/DL (8.3-10.6); CARBON DIOXIDE LEVEL 31 MMOL/L (20-31); CHLORIDE LEVEL 101 MMOL/L (98-107); CHOLESTEROL LEVEL 132 MG/DL (<200); CHOLESTEROL RISK RATIO 2.82 (<5); CREATININE FOR GFR 0.73 MG/DL (0.70-1.30); GLOMERULAR FILTRATION RATE > 60.0 (>42); GLUCOSE, FASTING 109 MG/DL (74-106); HDL CHOLESTEROL 46.7 MG/DL (>40); HEMOGLOBIN A1c 5.8 % (4.0-6.0); LDL CHOLESTEROL 52.5 MG/DL (<100); NON-HDL-C 85.3 MG/DL; POTASSIUM SERUM 4.2 MMOL/L (3.5-5.1); SODIUM LEVEL 138 MMOL/L (136-145); TOTAL PROTEIN 6.6 G/DL (5.7-8.2); TRIGLYCERIDES LEVEL 164 MG/DL (<150)
== END ==
LOC: M PLALAB 07:32
PROVIDERS: ATTEND Internal Medicine Rheumatology
DX: E78.5 Hyperlipidemia, unspecified (principal); I10 Essential (primary) hypertension; Z79.899 Other long term (current) drug therapy

== ENCOUNTER → 2023-05-11 | Outpatient (CLI) | payer MEDICARE, BC, OTHER ==
[2023-05-11 15:35] LABS: BASO % 0.4 % (0.0-1.0); EOS # 0.2 10^3/uL (0.0-0.5); EOS % 2.2 % (0.0-3.0); HEMATOCRIT 42.2 % (42.0-52.0); HEMOGLOBIN 14.1 g/dl (13.5-17.5); LYMPH # 1.7 10^3/uL (1.5-5.0); LYMPH % 22.8 % (24.0-44.0); MEAN CORPUSCULAR HEMOGLOBIN 30.8 pg (27.0-33.0); MEAN CORPUSCULAR HGB CONC 33.4 g/dl (32.0-36.5); MEAN CORPUSCULAR VOLUME 92.1 fl (80.0-96.0); MONO # 0.6 10^3/uL (0.0-0.8); MONO % 7.2 % (2.0-8.0); NEUTROPHILS # 5.1 10^3/uL (1.5-8.5); NEUTROPHILS % 67.3 % (36.0-66.0); PLATELET COUNT, AUTOMATED 260 10^3/uL (150-450); RED BLOOD COUNT 4.58 10^6/uL (4.30-6.10); WHITE BLOOD COUNT 7.6 10^3/uL (4.0-10.0)
[2023-05-11 15:58] LABS: BLOOD UREA NITROGEN 13 MG/DL (9-23); CALCIUM LEVEL 9.2 MG/DL (8.3-10.6); CARBON DIOXIDE LEVEL 27 MMOL/L (20-31); CHLORIDE LEVEL 103 MMOL/L (98-107); CREATININE FOR GFR 0.68 MG/DL (0.70-1.30); GLOMERULAR FILTRATION RATE > 60.0 (>42); GLUCOSE, FASTING 133 MG/DL (74-106); POTASSIUM SERUM 3.9 MMOL/L (3.5-5.1); SODIUM LEVEL 138 MMOL/L (136-145)
== END ==
LOC: M PLALAB 13:14
PROVIDERS: ATTEND Internal Medicine Cardiovascular Disease
DX: I48.91 Unspecified atrial fibrillation (principal); I48.0 Paroxysmal atrial fibrillation; I10 Essential (primary) hypertension

== ENCOUNTER → 2023-05-17 | Outpatient (CLI) | payer MEDICARE, BC, OTHER ==
[~2023-05-17] MED LIST changes: +ISOVUE-370 76% 100ML VIAL As Ordered ONE
== END ==
LOC: M RAD 13:19
PROVIDERS: ATTEND Internal Medicine Cardiovascular Disease
DX: I71.20 Thoracic aortic aneurysm, without rupture, unspecified (principal)
CPT/HCPCS: 71275; 74175; Q9967

== ENCOUNTER → 2023-05-26 | Outpatient (CLI) | payer MEDICARE, BC, OTHER ==
[~2023-05-26] MED LIST changes: -ISOVUE-370 76% 100ML VIAL As Ordered ONE
== END ==
LOC: M RAD 12:23
PROVIDERS: ATTEND Physician Assistant
DX: S40.011A Contusion of right shoulder, initial encounter (principal); W00.0XXA Fall on same level due to ice and snow, initial encounter; M19.011 Primary osteoarthritis, right shoulder; M75.31 Calcific tendinitis of right shoulder; Y92.9 Unspecified place or not applicable; Y93.9 Activity, unspecified; Y99.9 Unspecified external cause status

== ENCOUNTER 2023-06-18 11:41 | Day surgery (SDC) | payer MEDICARE, BC, OTHER ==
[~2023-06-18] VITALS: Ht 177.8 cm; Wt 105.7 kg
[~2023-06-18 11:41] MED LIST changes: +BISO1TAB19 PO; +CLOP75TA2 PO; +COQ1200C3 PO; +D3 S20002 PO; +DIGESTIVE GOLD PO; +FERR325T3 PO; +OMEG12004 PO; +ROSU5TAB5 PO; +TAMS1CAP17 PO; +[UNRECOGNIZED DRUG - OTHER] PO
[2023-06-18] MEDS: NS 1,000 ML IV ONE (12:31)
[2023-06-18] MEDS ORDERED: propofoL 200 MG/20 ML VIAL As Ordered ONE (12:55)
[2023-06-18] MEDS ORDERED: LIDOCAINE 2% 100MG/5ML SDV (FOR ANES.) As Ordered ONE (12:55)
[2023-06-18] MEDS ORDERED: fentaNYL 100 MCG/2 ML INJECTION As Ordered ONE (13:35)
[2023-06-18 14:11] VITALS: TEMP 97.1
[2023-06-18 14:34] VITALS: BP 109/58; O2SAT 98
== END 2023-06-18 14:42 | disposition home or self-care (01) ==
LOC: M OPP 11:41
PROVIDERS: ATTEND Internal Medicine Gastroenterology
DX: Z12.11 Encounter for screening for malignant neoplasm of colon (principal); D12.6 Benign neoplasm of colon, unspecified; K64.0 First degree hemorrhoids; K22.89 Other specified disease of esophagus; K31.A0 Gastric intestinal metaplasia, unspecified; K44.9 Diaphragmatic hernia without obstruction or gangrene; R12 Heartburn; I48.91 Unspecified atrial fibrillation; I34.9 Nonrheumatic mitral valve disorder, unspecified; G47.30 Sleep apnea, unspecified; Z99.89 Dependence on other enabling machines and devices; Z79.02 Long term (current) use of antithrombotics/antiplatelets; Z79.51 Long term (current) use of inhaled steroids; Z79.52 Long term (current) use of systemic steroids; Z79.84 Long term (current) use of oral hypoglycemic drugs; Z79.899 Other long term (current) drug therapy; Z88.1 Allergy status to other antibiotic agents; Z88.6 Allergy status to analgesic agent; Z88.8 Allergy status to other drugs, medicaments and biological substances
CPT/HCPCS: 43239; 45385; 88305; J3010

== ENCOUNTER → 2023-07-23 | Outpatient (REF) | payer MEDICARE, BC | LOC: M SFHCPLAZ 08:33 | PROVIDERS: ATTEND Physician Assistant Medical | DX: R30.0 Dysuria (principal) ==

== ENCOUNTER → 2023-07-23 | Outpatient (CLI) | payer MEDICARE, BC | LOC: M RAD 11:47 | PROVIDERS: ATTEND Physician Assistant Medical | DX: R31.0 Gross hematuria (principal) ==

== ENCOUNTER → 2023-08-21 | Outpatient (CLI) | payer MEDICARE, BC ==
[~2023-08-21] MED LIST changes: +ROSU5TAB40 PO; -ROSU5TAB5 PO
[2023-08-21 11:18] LABS: BASO % 0.4 % (0.0-1.0); EOS # 0.2 10^3/uL (0.0-0.5); EOS % 1.7 % (0.0-3.0); HEMATOCRIT 42.7 % (42.0-52.0); HEMOGLOBIN 14.4 g/dl (13.5-17.5); LYMPH # 1.7 10^3/uL (1.5-5.0); LYMPH % 18.3 % (24.0-44.0); MEAN CORPUSCULAR HEMOGLOBIN 31.4 pg (27.0-33.0); MEAN CORPUSCULAR HGB CONC 33.7 g/dl (32.0-36.5); MONO # 0.6 10^3/uL (0.0-0.8); MONO % 6.4 % (2.0-8.0); NEUTROPHILS # 6.9 10^3/uL (1.5-8.5); NEUTROPHILS % 72.4 % (36.0-66.0); PLATELET COUNT, AUTOMATED 253 10^3/uL (150-450); RED BLOOD COUNT 4.59 10^6/uL (4.30-6.10); WHITE BLOOD COUNT 9.5 10^3/uL (4.0-10.0)
[2023-08-21 11:45] LABS: HEMOGLOBIN A1c 5.5 % (4.0-6.0)
[2023-08-21 11:47] LABS: CREATININE, URINE 95.1 MG/DL
[2023-08-21 11:49] LABS: ALKALINE PHOSPHATASE 86 U/L (46-116); ALT/SGPT 19 U/L (7.0-40); AST/SGOT 15 U/L (<34); BILIRUBIN,TOTAL 0.9 MG/DL (0.3-1.2); BLOOD UREA NITROGEN 11 MG/DL (9-23); CALCIUM LEVEL 9.5 MG/DL (8.3-10.6); CARBON DIOXIDE LEVEL 29 MMOL/L (20-31); CHLORIDE LEVEL 101 MMOL/L (98-107); CREATININE FOR GFR 0.73 MG/DL (0.70-1.30); GLOMERULAR FILTRATION RATE > 60.0 (>42); GLUCOSE, FASTING 98 MG/DL (74-106); MAGNESIUM LEVEL 1.9 MG/DL (1.8-2.4); POTASSIUM SERUM 4.8 MMOL/L (3.5-5.1); SODIUM LEVEL 139 MMOL/L (136-145); TOTAL PROTEIN 6.9 G/DL (5.7-8.2)
[2023-08-21 11:51] LABS: FERRITIN 122.2 NG/ML (10.5-307.3)
== END ==
LOC: M PLALAB 08:47
PROVIDERS: ATTEND Family Medicine
DX: R73.01 Impaired fasting glucose (principal); Z12.5 Encounter for screening for malignant neoplasm of prostate; D50.9 Iron deficiency anemia, unspecified
CPT/HCPCS: 36415; 80053; 82043; 82728; 83036; 83735; 85025; G0103

== ENCOUNTER → 2023-08-22 | Outpatient (CLI) | payer MEDICARE, BC | LOC: M RAD 08:47 | PROVIDERS: ATTEND Nurse Practitioner | DX: N20.1 Calculus of ureter (principal); Z96.643 Presence of artificial hip joint, bilateral ==

== ENCOUNTER → 2023-09-07 | Outpatient (CLI) | payer MEDICARE, BC ==
[2023-09-07 12:41] LABS: APPEARANCE, URINE CLEAR (CLEAR); BACTERIA, URINE AUTO NEGATIVE (NEGATIVE); BASO % 0.5 % (0.0-1.0); BILIRUBIN, URINE AUTO NEGATIVE (NEGATIVE); BLOOD, URINE BLOOD NEGATIVE (NEGATIVE); COLOR, URINE YELLOW (YELLOW); EOS # 0.1 10^3/uL (0.0-0.5); EOS % 1.5 % (0.0-3.0); GLUCOSE, URINE (UA) AUTO NEGATIVE (NEGATIVE); HEMATOCRIT 41.1 % (42.0-52.0); HEMOGLOBIN 13.6 g/dl (13.5-17.5); KETONE, URINE AUTO NEGATIVE (NEGATIVE); LEUKOCYTE ESTERASE, URINE AUTO NEGATIVE (NEGATIVE); LYMPH # 2.1 10^3/uL (1.5-5.0); LYMPH % 24.6 % (24.0-44.0); MEAN CORPUSCULAR HEMOGLOBIN 30.4 pg (27.0-33.0); MEAN CORPUSCULAR HGB CONC 33.1 g/dl (32.0-36.5); MEAN CORPUSCULAR VOLUME 91.9 fl (80.0-96.0); MONO # 0.5 10^3/uL (0.0-0.8); MONO % 6.1 % (2.0-8.0); MUCUS, URINE SMALL (NEGATIVE); NEUTROPHILS # 5.6 10^3/uL (1.5-8.5); NEUTROPHILS % 66.6 % (36.0-66.0); NITRITE, URINE AUTO NEGATIVE (NEGATIVE); PLATELET COUNT, AUTOMATED 346 10^3/uL (150-450); PROTEIN, URINE AUTO NEGATIVE (NEGATIVE); RBC, URINE AUTO 1 /HPF (0-3); RED BLOOD COUNT 4.47 10^6/uL (4.30-6.10); SPECIFIC GRAVITY URINE AUTO 1.019 (1.002-1.035); SQUAMOUS EPITHELIAL CELL UR AU 0 /HPF (0-6); UROBILINOGEN, URINE AUTO 0.2 mg/dL (0.0-2.0); WBC, URINE AUTO 1 /HPF (0-3); WHITE BLOOD COUNT 8.4 10^3/uL (4.0-10.0)
[2023-09-07 13:10] LABS: ALBUMIN 3.7 G/DL (3.2-5.2); ALKALINE PHOSPHATASE 88 U/L (46-116); ALT/SGPT 28 U/L (7.0-40); AST/SGOT 18 U/L (<34); BILIRUBIN,TOTAL 0.5 MG/DL (0.3-1.2); BLOOD UREA NITROGEN 17 MG/DL (9-23); CALCIUM LEVEL 9.2 MG/DL (8.3-10.6); CARBON DIOXIDE LEVEL 28 MMOL/L (20-31); CHLORIDE LEVEL 104 MMOL/L (98-107); CREATININE FOR GFR 1.01 MG/DL (0.70-1.30); GLOMERULAR FILTRATION RATE > 60.0 (>42); GLUCOSE, FASTING 108 MG/DL (74-106); POTASSIUM SERUM 4.9 MMOL/L (3.5-5.1); SODIUM LEVEL 138 MMOL/L (136-145); TOTAL PROTEIN 6.9 G/DL (5.7-8.2)
== END ==
LOC: M PLALAB 08:55
PROVIDERS: ATTEND Family Medicine
DX: I10 Essential (primary) hypertension (principal); Z79.899 Other long term (current) drug therapy

== ENCOUNTER → 2023-09-13 | Outpatient (REF) | payer MEDICARE, BC ==
[~2023-09-13] MED LIST changes: -AZEL0.055 NARES; +AZEL1SPR4 NARES
[2023-09-13 10:13] LABS: BACTERIA, URINE AUTO 1+ (NEGATIVE); CALCIUM OXALATE CRYSTALS MODERATE; MUCUS, URINE SMALL (NEGATIVE); RBC, URINE AUTO 21 /HPF (0-3); SQUAMOUS EPITHELIAL CELL UR AU 0 /HPF (0-6); WBC, URINE AUTO TNTC /HPF (0-3)
== END ==
LOC: M LAB REF 09:27
PROVIDERS: ATTEND Nurse Practitioner
DX: R82.998 Other abnormal findings in urine (principal)

== ENCOUNTER → 2023-10-10 | Outpatient (CLI) | payer MEDICARE, BC ==
[2023-10-10 13:27] LABS: APPEARANCE, URINE HAZY (CLEAR); BACTERIA, URINE AUTO NEGATIVE (NEGATIVE); BILIRUBIN, URINE AUTO NEGATIVE (NEGATIVE); BLOOD, URINE BLOOD NEGATIVE (NEGATIVE); COLOR, URINE YELLOW (YELLOW); GLUCOSE, URINE (UA) AUTO NEGATIVE (NEGATIVE); KETONE, URINE AUTO NEGATIVE (NEGATIVE); LEUKOCYTE ESTERASE, URINE AUTO 3+ (NEGATIVE); MUCUS, URINE SMALL (NEGATIVE); NITRITE, URINE AUTO NEGATIVE (NEGATIVE); PROTEIN, URINE AUTO NEGATIVE (NEGATIVE); RBC, URINE AUTO 8 /HPF (0-3); SPECIFIC GRAVITY URINE AUTO 1.014 (1.002-1.035); SQUAMOUS EPITHELIAL CELL UR AU 0 /HPF (0-6); UROBILINOGEN, URINE AUTO 0.2 mg/dL (0.0-2.0); WBC, URINE AUTO 73 /HPF (0-3)
== END ==
LOC: M PLALAB 10:14
PROVIDERS: ATTEND Nurse Practitioner
DX: N39.0 Urinary tract infection, site not specified (principal)

== ENCOUNTER → 2023-11-08 | Outpatient (CLI) | payer MEDICARE, BC ==
[2023-11-08 10:58] LABS: BASO % 0.5 % (0.0-1.0); EOS # 0.1 10^3/uL (0.0-0.5); HEMATOCRIT 39.7 % (42.0-52.0); HEMOGLOBIN 13.1 g/dl (13.5-17.5); LYMPH # 1.9 10^3/uL (1.5-5.0); LYMPH % 28.1 % (24.0-44.0); MEAN CORPUSCULAR HEMOGLOBIN 30.2 pg (27.0-33.0); MEAN CORPUSCULAR VOLUME 91.5 fl (80.0-96.0); MONO # 0.5 10^3/uL (0.0-0.8); MONO % 6.8 % (2.0-8.0); NEUTROPHILS # 4.1 10^3/uL (1.5-8.5); NEUTROPHILS % 62.1 % (36.0-66.0); PLATELET COUNT, AUTOMATED 247 10^3/uL (150-450); RED BLOOD COUNT 4.34 10^6/uL (4.30-6.10); WHITE BLOOD COUNT 6.6 10^3/uL (4.0-10.0)
[2023-11-08 11:11] LABS: HEMOGLOBIN A1c 5.5 % (4.0-6.0)
[2023-11-08 11:19] LABS: URIC ACID 5.6 MG/DL (3.7-9.2)
[2023-11-08 11:20] LABS: PSA SCREENING 0.82 NG/ML (< 4.00)
[2023-11-08 11:23] LABS: ALKALINE PHOSPHATASE 80 U/L (46-116); ALT/SGPT 17 U/L (7.0-40); AST/SGOT 12 U/L (<34); BILIRUBIN,TOTAL 0.7 MG/DL (0.3-1.2); BLOOD UREA NITROGEN 13 MG/DL (9-23); CALCIUM LEVEL 9.3 MG/DL (8.3-10.6); CARBON DIOXIDE LEVEL 30 MMOL/L (20-31); CHLORIDE LEVEL 105 MMOL/L (98-107); CREATININE FOR GFR 0.76 MG/DL (0.70-1.30); GLOMERULAR FILTRATION RATE > 60.0 (>42); GLUCOSE, FASTING 104 MG/DL (74-106); MAGNESIUM LEVEL 1.9 MG/DL (1.8-2.4); POTASSIUM SERUM 4.2 MMOL/L (3.5-5.1); PTH INTACT 43.9 PG/ML (18.5-88.0); SODIUM LEVEL 141 MMOL/L (136-145); TOTAL PROTEIN 6.5 G/DL (5.7-8.2)
[2023-11-08 11:24] LABS: FERRITIN 117.5 NG/ML (10.5-307.3)
[2023-11-08 11:25] LABS: TOTAL 25(OH) VITAMIN D 47.8 NG/ML (20.0-100.0)
== END ==
LOC: M PLALAB 08:40
PROVIDERS: ATTEND Family Medicine
DX: Z12.5 Encounter for screening for malignant neoplasm of prostate (principal); R73.01 Impaired fasting glucose; D50.9 Iron deficiency anemia, unspecified; I50.32 Chronic diastolic (congestive) heart failure; N20.0 Calculus of kidney; Z79.899 Other long term (current) drug therapy
CPT/HCPCS: 36415; 80053; 82306; 82728; 83036; 83735; 83880; 83970; 84550; 85025; G0103

== ENCOUNTER → 2023-11-27 | Outpatient (REF) | payer MEDICARE, OTHER ==
[2023-11-27 14:01] LABS: APPEARANCE, URINE HAZY (CLEAR); BACTERIA, URINE AUTO NEGATIVE (NEGATIVE); BILIRUBIN, URINE AUTO NEGATIVE (NEGATIVE); BLOOD, URINE BLOOD NEGATIVE (NEGATIVE); COLOR, URINE YELLOW (YELLOW); GLUCOSE, URINE (UA) AUTO NEGATIVE (NEGATIVE); KETONE, URINE AUTO NEGATIVE (NEGATIVE); LEUKOCYTE ESTERASE, URINE AUTO 2+ (NEGATIVE); MUCUS, URINE SMALL (NEGATIVE); NITRITE, URINE AUTO NEGATIVE (NEGATIVE); PROTEIN, URINE AUTO NEGATIVE (NEGATIVE); RBC, URINE AUTO 3 /HPF (0-3); SPECIFIC GRAVITY URINE AUTO 1.012 (1.002-1.035); SQUAMOUS EPITHELIAL CELL UR AU 0 /HPF (0-6); UROBILINOGEN, URINE AUTO 0.2 mg/dL (0.0-2.0); WBC, URINE AUTO 36 /HPF (0-3)
== END ==
LOC: M LAB REF 12:26
PROVIDERS: ATTEND Nurse Practitioner
DX: N39.0 Urinary tract infection, site not specified (principal); R30.0 Dysuria

== ENCOUNTER → 2023-11-28 | Outpatient (CLI) | payer MEDICARE, OTHER | LOC: M PLALAB 13:14 | PROVIDERS: ATTEND Nurse Practitioner | DX: N39.0 Urinary tract infection, site not specified (principal) ==

== ENCOUNTER → 2024-01-30 | Outpatient (CLI) | payer MEDICARE, OTHER ==
[2024-01-30 10:56] LABS: BASO % 0.4 % (0.0-1.0); EOS # 0.2 10^3/uL (0.0-0.5); EOS % 2.6 % (0.0-3.0); HEMATOCRIT 43.1 % (42.0-52.0); HEMOGLOBIN 14.2 g/dl (13.5-17.5); LYMPH # 1.9 10^3/uL (1.5-5.0); LYMPH % 27.4 % (24.0-44.0); MEAN CORPUSCULAR HEMOGLOBIN 30.6 pg (27.0-33.0); MEAN CORPUSCULAR HGB CONC 32.9 g/dl (32.0-36.5); MEAN CORPUSCULAR VOLUME 92.9 fl (80.0-96.0); MONO # 0.6 10^3/uL (0.0-0.8); NEUTROPHILS # 4.3 10^3/uL (1.5-8.5); NEUTROPHILS % 61.2 % (36.0-66.0); PLATELET COUNT, AUTOMATED 247 10^3/uL (150-450); RED BLOOD COUNT 4.64 10^6/uL (4.30-6.10)
[2024-01-30 11:08] LABS: HEMOGLOBIN A1c 5.6 % (4.0-6.0)
[2024-01-30 11:29] LABS: PSA SCREENING 0.85 NG/ML (< 4.00)
[2024-01-30 11:32] LABS: FERRITIN 93.6 NG/ML (10.5-307.3)
[2024-01-30 11:34] LABS: TOTAL 25(OH) VITAMIN D 61.8 NG/ML (20.0-100.0)
[2024-01-30 11:45] LABS: URIC ACID 6.3 MG/DL (3.7-9.2)
[2024-01-30 11:48] LABS: ALKALINE PHOSPHATASE 79 U/L (46-116); ALT/SGPT 16 U/L (7.0-40); AST/SGOT 13 U/L (<34); BILIRUBIN,TOTAL 0.7 MG/DL (0.3-1.2); BLOOD UREA NITROGEN 15 MG/DL (9-23); CALCIUM LEVEL 9.7 MG/DL (8.3-10.6); CARBON DIOXIDE LEVEL 29 MMOL/L (20-31); CHLORIDE LEVEL 107 MMOL/L (98-107); CREATININE FOR GFR 0.76 MG/DL (0.70-1.30); GLOMERULAR FILTRATION RATE > 60.0 (>42); GLUCOSE, FASTING 104 MG/DL (74-106); POTASSIUM SERUM 4.3 MMOL/L (3.5-5.1); SODIUM LEVEL 142 MMOL/L (136-145)
[2024-01-30 12:27] LABS: PTH INTACT 54.1 PG/ML (18.5-88.0)
== END ==
LOC: M PLALAB 07:35
PROVIDERS: ATTEND Family Medicine
DX: R73.01 Impaired fasting glucose (principal); D50.9 Iron deficiency anemia, unspecified; Z12.5 Encounter for screening for malignant neoplasm of prostate; I50.32 Chronic diastolic (congestive) heart failure; N20.0 Calculus of kidney; K76.0 Fatty (change of) liver, not elsewhere classified; Z79.899 Other long term (current) drug therapy
CPT/HCPCS: 36415; 80053; 81596; 82306; 82728; 83036; 83735; 83880; 83970; 84550; 85025; G0103

== ENCOUNTER → 2024-03-11 | Outpatient (REF) | payer MEDICARE, OTHER ==
[~2024-03-11] MED LIST changes: -ROSU5TAB40 PO; +ROSU5TAB49 PO
[2024-03-11 13:54] LABS: APPEARANCE, URINE HAZY (CLEAR); BACTERIA, URINE AUTO NEGATIVE (NEGATIVE); BILIRUBIN, URINE AUTO NEGATIVE (NEGATIVE); BLOOD, URINE BLOOD NEGATIVE (NEGATIVE); COLOR, URINE YELLOW (YELLOW); GLUCOSE, URINE (UA) AUTO NEGATIVE (NEGATIVE); KETONE, URINE AUTO NEGATIVE (NEGATIVE); LEUKOCYTE ESTERASE, URINE AUTO 2+ (NEGATIVE); MUCUS, URINE SMALL (NEGATIVE); NITRITE, URINE AUTO NEGATIVE (NEGATIVE); PROTEIN, URINE AUTO NEGATIVE (NEGATIVE); RBC, URINE AUTO 6 /HPF (0-3); SPECIFIC GRAVITY URINE AUTO 1.019 (1.002-1.035); SQUAMOUS EPITHELIAL CELL UR AU 0 /HPF (0-6); TRANSITIONAL EPITHELIAL AUTO 1 /HPF; UROBILINOGEN, URINE AUTO 0.2 mg/dL (0.0-2.0); WBC, URINE AUTO 176 /HPF (0-3)
== END ==
LOC: M SFHCPLAZ 12:39
PROVIDERS: ATTEND Physician Assistant
DX: N30.00 Acute cystitis without hematuria (principal)

== ENCOUNTER → 2024-03-24 | Outpatient (REF) | payer MEDICARE, OTHER ==
[2024-03-24 10:47] LABS: APPEARANCE, URINE HAZY (CLEAR); BACTERIA, URINE AUTO NEGATIVE (NEGATIVE); BILIRUBIN, URINE AUTO NEGATIVE (NEGATIVE); BLOOD, URINE BLOOD NEGATIVE (NEGATIVE); CALCIUM OXALATE CRYSTALS SMALL; COLOR, URINE YELLOW (YELLOW); GLUCOSE, URINE (UA) AUTO NEGATIVE (NEGATIVE); KETONE, URINE AUTO TRACE mg/dL (NEGATIVE); LEUKOCYTE ESTERASE, URINE AUTO 3+ (NEGATIVE); MUCUS, URINE LARGE (NEGATIVE); NITRITE, URINE AUTO NEGATIVE (NEGATIVE); PROTEIN, URINE AUTO 1+ mg/dL (NEGATIVE); RBC, URINE AUTO 5 /HPF (0-3); SPECIFIC GRAVITY URINE AUTO 1.027 (1.002-1.035); SQUAMOUS EPITHELIAL CELL UR AU 0 /HPF (0-6); UROBILINOGEN, URINE AUTO 0.2 mg/dL (0.0-2.0); WBC, URINE AUTO 122 /HPF (0-3)
== END ==
LOC: M LAB REF 10:06
DX: N30.00 Acute cystitis without hematuria (principal)

== ENCOUNTER → 2024-04-14 | Outpatient (CLI) | payer MEDICARE, BC ==
[2024-04-14 10:40] LABS: ALBUMIN 3.9 G/DL (3.2-5.2); ALKALINE PHOSPHATASE 73 U/L (40-129); ALT/SGPT 19 U/L (7.0-40); AST/SGOT 18 U/L (<34); BILIRUBIN,TOTAL 0.6 MG/DL (0.3-1.2); BLOOD UREA NITROGEN 13 MG/DL (9-23); CALCIUM LEVEL 9.9 MG/DL (8.3-10.6); CARBON DIOXIDE LEVEL 30 MMOL/L (20-31); CHLORIDE LEVEL 105 MMOL/L (98-107); CHOLESTEROL LEVEL 136 MG/DL (<200); CHOLESTEROL RISK RATIO 2.51 (<5); CREATININE FOR GFR 0.83 MG/DL (0.70-1.30); GLOMERULAR FILTRATION RATE > 60.0 (>42); GLUCOSE, FASTING 101 MG/DL (74-106); HDL CHOLESTEROL 54.1 MG/DL (>40); LDL CHOLESTEROL 49.9 MG/DL (<100); NON-HDL-C 81.9 MG/DL; POTASSIUM SERUM 4.2 MMOL/L (3.5-5.1); SODIUM LEVEL 143 MMOL/L (136-145); TRIGLYCERIDES LEVEL 160 MG/DL (<150)
[2024-04-15 06:26] LABS: LDL DIRECT 59 mg/dL (<100)
== END ==
LOC: M PLALAB 07:36
PROVIDERS: ATTEND Internal Medicine Cardiovascular Disease
DX: E78.2 Mixed hyperlipidemia (principal)

== ENCOUNTER → 2024-04-30 | Outpatient (CLI) | payer MEDICARE, BC ==
[2024-04-30 11:00] LABS: BLOOD UREA NITROGEN 12 MG/DL (9-23); CALCIUM LEVEL 9.1 MG/DL (8.3-10.6); CARBON DIOXIDE LEVEL 23 MMOL/L (20-31); CHLORIDE LEVEL 104 MMOL/L (98-107); CREATININE FOR GFR 1.06 MG/DL (0.70-1.30); GLOMERULAR FILTRATION RATE > 60.0 (>42); GLUCOSE, FASTING 130 MG/DL (74-106); MAGNESIUM LEVEL 1.9 MG/DL (1.8-2.4); POTASSIUM SERUM 4.2 MMOL/L (3.5-5.1); SODIUM LEVEL 139 MMOL/L (136-145)
== END ==
LOC: M PLALAB 08:44
PROVIDERS: ATTEND Internal Medicine Cardiovascular Disease
DX: I50.9 Heart failure, unspecified (principal); I48.0 Paroxysmal atrial fibrillation; E78.2 Mixed hyperlipidemia; R00.2 Palpitations; G47.33 Obstructive sleep apnea (adult) (pediatric); I11.0 Hypertensive heart disease with heart failure

== ENCOUNTER → 2024-07-04 | Outpatient (CLI) | payer MEDICARE, BC ==
[2024-07-04 10:35] LABS: BASO % 0.5 % (0.0-1.0); EOS # 0.7 10^3/uL (0.0-0.5); EOS % 11.4 % (0.0-3.0); HEMATOCRIT 44.4 % (42.0-52.0); HEMOGLOBIN 14.5 g/dl (13.5-17.5); LYMPH # 1.8 10^3/uL (1.5-5.0); LYMPH % 29.6 % (24.0-44.0); MEAN CORPUSCULAR HEMOGLOBIN 30.3 pg (27.0-33.0); MEAN CORPUSCULAR HGB CONC 32.7 g/dl (32.0-36.5); MEAN CORPUSCULAR VOLUME 92.9 fl (80.0-96.0); MONO # 0.4 10^3/uL (0.0-0.8); NEUTROPHILS # 3.2 10^3/uL (1.5-8.5); NEUTROPHILS % 52.2 % (36.0-66.0); PLATELET COUNT, AUTOMATED 253 10^3/uL (150-450); RED BLOOD COUNT 4.78 10^6/uL (4.30-6.10)
[2024-07-04 10:36] LABS: PSA SCREENING 1.04 NG/ML (< 4.00)
[2024-07-04 10:38] LABS: C REACTIVE PROTEIN QUANTITATIV < 0.50 MG/DL (<1.0)
[2024-07-04 10:39] LABS: ALBUMIN 3.8 G/DL (3.2-5.2); ALKALINE PHOSPHATASE 72 U/L (40-129); ALT/SGPT 17 U/L (7.0-40); AST/SGOT 15 U/L (<34); BILIRUBIN,TOTAL 0.5 MG/DL (0.3-1.2); BLOOD UREA NITROGEN 9 MG/DL (9-23); CALCIUM LEVEL 9.1 MG/DL (8.3-10.6); CARBON DIOXIDE LEVEL 30 MMOL/L (20-31); CHLORIDE LEVEL 106 MMOL/L (98-107); CHOLESTEROL LEVEL 109 MG/DL (<200); CHOLESTEROL RISK RATIO 2.71 (<5); CREATININE FOR GFR 0.74 MG/DL (0.70-1.30); GLOMERULAR FILTRATION RATE > 60.0 (>42); GLUCOSE, FASTING 107 MG/DL (74-106); HDL CHOLESTEROL 40.1 MG/DL (>40); LDL CHOLESTEROL 41.1 MG/DL (<100); NON-HDL-C 68.9 MG/DL; POTASSIUM SERUM 4.1 MMOL/L (3.5-5.1); PTH INTACT 43.5 PG/ML (18.5-88.0); SODIUM LEVEL 142 MMOL/L (136-145); TOTAL PROTEIN 6.9 G/DL (5.7-8.2); TRIGLYCERIDES LEVEL 139 MG/DL (<150)
[2024-07-04 10:40] LABS: FERRITIN 81.3 NG/ML (10.5-307.3)
[2024-07-04 10:41] LABS: TOTAL 25(OH) VITAMIN D 77.8 NG/ML (20.0-100.0)
[2024-07-04 10:50] LABS: CPK CREATINE PHOSPHOKINASE 66 U/L (46-171); HEMOGLOBIN A1c 5.4 % (4.0-6.0)
== END ==
LOC: M PLALAB 07:35
PROVIDERS: ATTEND Family Medicine
DX: D50.9 Iron deficiency anemia, unspecified (principal); R73.01 Impaired fasting glucose; Z12.5 Encounter for screening for malignant neoplasm of prostate; N20.0 Calculus of kidney; I50.32 Chronic diastolic (congestive) heart failure; E78.5 Hyperlipidemia, unspecified; Z79.899 Other long term (current) drug therapy; N39.0 Urinary tract infection, site not specified
CPT/HCPCS: 36415; 80053; 80061; 81001; 82306; 82550; 82728; 83036; 83880; 83970; 85025; 86140; 87086; G0103

== ENCOUNTER → 2024-07-04 | Outpatient (REF) | payer MEDICARE, BC ==
[2024-07-04 10:48] LABS: APPEARANCE, URINE CLEAR (CLEAR); BACTERIA, URINE AUTO NEGATIVE (NEGATIVE); BILIRUBIN, URINE AUTO NEGATIVE (NEGATIVE); BLOOD, URINE BLOOD NEGATIVE (NEGATIVE); COLOR, URINE YELLOW (YELLOW); GLUCOSE, URINE (UA) AUTO 3+ mg/dL (NEGATIVE); KETONE, URINE AUTO NEGATIVE (NEGATIVE); LEUKOCYTE ESTERASE, URINE AUTO NEGATIVE (NEGATIVE); MUCUS, URINE SMALL (NEGATIVE); NITRITE, URINE AUTO NEGATIVE (NEGATIVE); PROTEIN, URINE AUTO NEGATIVE (NEGATIVE); RBC, URINE AUTO 0 /HPF (0-3); SPECIFIC GRAVITY URINE AUTO 1.029 (1.002-1.035); SQUAMOUS EPITHELIAL CELL UR AU 0 /HPF (0-6); UROBILINOGEN, URINE AUTO 0.2 mg/dL (0.0-2.0); WBC, URINE AUTO 4 /HPF (0-3)
== END ==
LOC: M SFHCPLAZ 10:15
DX: N39.0 Urinary tract infection, site not specified (principal)

== ENCOUNTER → 2024-11-05 | Outpatient (CLI) | payer MEDICARE, BC ==
[~2024-11-05] MED LIST changes: -FLOM0.4C39 PO; -PRAV20TA2 PO; +PRAV20TA78 PO; -PRAV40TA2 PO; +PRAV40TA85 PO; +TAMS-18 PO
== END ==
LOC: M PLALAB 07:32
PROVIDERS: ATTEND Nurse Practitioner
DX: N40.1 Benign prostatic hyperplasia with lower urinary tract symptoms (principal)

== ENCOUNTER → 2024-11-05 | Outpatient (CLI) | payer MEDICARE, BC ==
[2024-11-05 11:10] LABS: FREE T4 1.02 NG/DL (0.89-1.76)
[2024-11-05 11:12] LABS: ALT/SGPT 24 U/L (7.0-40); AST/SGOT 22 U/L (<34); CALCIUM LEVEL 9.0 MG/DL (8.3-10.6); CARBON DIOXIDE LEVEL 25 MMOL/L (20-31); CHLORIDE LEVEL 103 MMOL/L (98-107); CHOLESTEROL LEVEL 127 MG/DL (<200); CHOLESTEROL RISK RATIO 2.54 (<5); CPK CREATINE PHOSPHOKINASE 144 U/L (46-171); CREATININE FOR GFR 0.82 MG/DL (0.70-1.30); GLOMERULAR FILTRATION RATE > 90.0 (>42); LDL CHOLESTEROL 55.7 MG/DL (<100); NON-HDL-C 77.1 MG/DL; POTASSIUM SERUM 4.1 MMOL/L (3.5-5.1); SODIUM LEVEL 142 MMOL/L (136-145); TRIGLYCERIDES LEVEL 107 MG/DL (<150)
[2024-11-05 11:15] LABS: BASO # 0.0 10^3/uL (0.0-0.2); BASO % 0.7 % (0.0-1.0); EOS # 0.2 10^3/uL (0.0-0.5); EOS % 3.1 % (0.0-3.0); LYMPH # 1.3 10^3/uL (1.5-5.0); LYMPH % 22.0 % (24.0-44.0); MONO # 0.5 10^3/uL (0.0-0.8); MONO % 7.4 % (2.0-8.0); NEUTROPHILS # 4.0 10^3/uL (1.5-8.5); NEUTROPHILS % 66.3 % (36.0-66.0); PLATELET COUNT, AUTOMATED 247 10^3/uL (150-450)
[2024-11-05 12:11] LABS: ESTIMATED AVERAGE GLUCOSE 117.0 MG/DL (60-110)
== END ==
LOC: M PLALAB 07:30
PROVIDERS: ATTEND Family Medicine
DX: D50.9 Iron deficiency anemia, unspecified (principal); E78.5 Hyperlipidemia, unspecified; R73.01 Impaired fasting glucose; I50.32 Chronic diastolic (congestive) heart failure; Z79.899 Other long term (current) drug therapy; N40.1 Benign prostatic hyperplasia with lower urinary tract symptoms

== ENCOUNTER → 2025-04-07 | Outpatient (CLI) | payer MEDICARE, BC ==
[~2025-04-07] MED LIST changes: +RED600CA7 PO
[2025-04-07 10:49] LABS: BASO # 0.0 10^3/uL (0.0-0.2); BASO % 0.6 % (0.0-1.0); EOS # 0.2 10^3/uL (0.0-0.5); EOS % 2.9 % (0.0-3.0); LYMPH # 1.5 10^3/uL (1.5-5.0); LYMPH % 21.0 % (24.0-44.0); MONO # 0.5 10^3/uL (0.0-0.8); MONO % 6.5 % (2.0-8.0); NEUTROPHILS # 4.8 10^3/uL (1.5-8.5); NEUTROPHILS % 68.4 % (36.0-66.0); PLATELET COUNT, AUTOMATED 324 10^3/uL (150-450)
[2025-04-07 11:42] LABS: ALT/SGPT 20 U/L (7.0-40); AST/SGOT 22 U/L (<34); CALCIUM LEVEL 9.6 MG/DL (8.3-10.6); CARBON DIOXIDE LEVEL 29 MMOL/L (20-31); CHLORIDE LEVEL 102 MMOL/L (98-107); CHOLESTEROL LEVEL 148 MG/DL (<200); CHOLESTEROL RISK RATIO 2.45 (<5); CREATININE FOR GFR 0.80 MG/DL (0.70-1.30); GLOMERULAR FILTRATION RATE > 90.0 (>42); LDL CHOLESTEROL 63.0 MG/DL (<100); NON-HDL-C 87.8 MG/DL; POTASSIUM SERUM 4.2 MMOL/L (3.5-5.1); PSA SCREENING 1.27 NG/ML (< 4.00); PTH INTACT 47.3 PG/ML (18.5-88.0); SODIUM LEVEL 142 MMOL/L (136-145); TOTAL 25(OH) VITAMIN D 71.7 NG/ML (20.0-100.0); TRIGLYCERIDES LEVEL 124 MG/DL (<150)
[2025-04-07 11:45] LABS: CPK CREATINE PHOSPHOKINASE 115 U/L (46-171)
[2025-04-07 12:51] LABS: ESTIMATED AVERAGE GLUCOSE 111.0 MG/DL (60-110)
[2025-04-08 12:22] LABS: INSULIN LEVEL 13.0 uIU/mL (<=18.4)
[2025-04-12 03:43] LABS: ENHANCED LIVER FIBROSIS SCORE 9.66 (<9.80)
== END ==
LOC: M PLALAB 07:58
PROVIDERS: ATTEND Family Medicine
DX: D50.9 Iron deficiency anemia, unspecified (principal); E78.5 Hyperlipidemia, unspecified; R73.01 Impaired fasting glucose; Z12.5 Encounter for screening for malignant neoplasm of prostate; N20.0 Calculus of kidney; I50.32 Chronic diastolic (congestive) heart failure; K76.0 Fatty (change of) liver, not elsewhere classified; E55.9 Vitamin D deficiency, unspecified; C43.4 Malignant melanoma of scalp and neck
CPT/HCPCS: 36415; 80053; 80061; 81517; 82306; 82550; 82728; 83036; 83525; 83880; 83970; 85025; 85610; 85730; G0103

== ENCOUNTER → 2025-04-07 | Outpatient (CLI) | payer MEDICARE, BC ==
[2025-04-07 10:48] LABS: PLATELET COUNT, AUTOMATED 318 10^3/uL (150-450)
[2025-04-07 11:20] LABS: INR 1.03
[2025-04-07 11:42] LABS: CALCIUM LEVEL 9.7 MG/DL (8.3-10.6); CARBON DIOXIDE LEVEL 29 MMOL/L (20-31); CHLORIDE LEVEL 102 MMOL/L (98-107); CREATININE FOR GFR 0.81 MG/DL (0.70-1.30); GLOMERULAR FILTRATION RATE > 90.0 (>42); POTASSIUM SERUM 4.2 MMOL/L (3.5-5.1); SODIUM LEVEL 141 MMOL/L (136-145)
== END ==
LOC: M PLALAB 08:00
PROVIDERS: ATTEND Surgery
DX: C43.4 Malignant melanoma of scalp and neck (principal)